=== PATIENT | female | born 1980 | race Caucasian/White ===

== ENCOUNTER 2016-09-13 15:21 | Emergency (ER) | payer MEDICAID ==
[~2016-09-13] VITALS: Ht 165.1 cm; Wt 83.9 kg
[~2016-09-13 15:21] MED LIST: ALBU18; DEPAKOTE; ZOLOFT
[2016-09-13 15:33] VITALS: BP 115/72
== END 2016-09-13 17:25 | disposition home or self-care (01) ==
LOC: ER 15:29
DX: S93.401A Sprain of unspecified ligament of right ankle, initial encounter (principal); W10.9XXA Fall (on) (from) unspecified stairs and steps, initial encounter; Y93.89 Activity, other specified; Y99.8 Other external cause status; Y92.89 Other specified places as the place of occurrence of the external cause
CPT/HCPCS: 73610

== ENCOUNTER 2016-09-16 15:53 | Emergency (ER) | payer MEDICAID ==
[~2016-09-16] VITALS: Ht 165.1 cm; Wt 83.0 kg
[2016-09-16 17:57] VITALS: BP 118/72
== END 2016-09-16 18:06 | disposition home or self-care (01) ==
LOC: ER 15:53
DX: S60.211A Contusion of right wrist, initial encounter (principal); J45.909 Unspecified asthma, uncomplicated; W01.0XXA Fall on same level from slipping, tripping and stumbling without subsequent striking against object, initial encounter; Y93.89 Activity, other specified; Y99.8 Other external cause status; Y92.89 Other specified places as the place of occurrence of the external cause
CPT/HCPCS: 73110; 73130; 81025

== ENCOUNTER 2017-01-24 17:12 | Emergency (ER) | payer MEDICAID ==
[~2017-01-24] VITALS: Ht 165.1 cm; Wt 87.5 kg
[2017-01-24 17:38] VITALS: BP 103/69
[2017-01-24 18:24] LABS: Basophils # (auto) 0.1 uL; Basophils % (auto) 0.7 % (0.0-2.0); CONDITION Y; Eosinophils # (auto) 0.3 uL; Eosinophils % (auto) 2.2 % (0.0-7.0); Hematocrit 41.6 % (36.0-46.0); Hemoglobin 14.2 g/dL (12.2-16.2); Lymphocytes # (auto) 3.4 uL; Lymphocytes % (auto) 28.1 % (10.0-50.0); Mean Corpuscular Hgb Conc. 34.1 g/dL (32.0-36.0); Mean Corpuscular Volume 90.9 fL (80.0-100.0); Mean Platelet Volume 8.4 fL (7.4-10.4); Monocytes # (auto) 0.8 uL; Neutrophils # (auto) 7.5 uL; Platelet Count (auto) 334 10^3/uL (140-450); Red Cell Distribution Width 13.5 % (11.6-16.0)
[2017-01-24 18:39] LABS: Albumin 3.7 g/dL (3.4-5.0); Bilirubin, Total 0.2 mg/dL (0.2-1.0); Calcium 8.8 mg/dL (8.5-10.1); Potassium 3.9 mmol/L (3.5-5.1); Total Protein 7.3 g/dL (6.4-8.2)
== END 2017-01-25 03:25 | disposition left against medical advice (07) ==
LOC: ER 17:18
DX: R56.9 Unspecified convulsions (principal); Z53.21 Procedure and treatment not carried out due to patient leaving prior to being seen by health care provider
CPT/HCPCS: 36415; 80053; 82542; 85025

== ENCOUNTER 2017-06-08 16:33 | Emergency (ER) | payer MEDICAID ==
[~2017-06-08] VITALS: Ht 165.1 cm; Wt 90.7 kg
[2017-06-08 17:26] LABS: Basophils # (auto) 0.1 uL; Basophils % (auto) 0.5 % (0.0-2.0); Eosinophils # (auto) 0.3 uL; Eosinophils % (auto) 2.3 % (0.0-7.0); Hematocrit 41.4 % (36.0-46.0); Hemoglobin 13.4 g/dL (12.2-16.2); Lymphocytes # (auto) 3.7 uL; Lymphocytes % (auto) 30.1 % (10.0-50.0); Mean Corpuscular Hemoglobin 29.7 pg (28.0-32.0); Mean Corpuscular Hgb Conc. 32.3 g/dL (32.0-36.0); Mean Corpuscular Volume 91.7 fL (80.0-100.0); Mean Platelet Volume 6.7 fL (6.9-10.8); Monocytes % (auto) 8.4 % (0.0-12.0); Neutrophils # (auto) 7.2 uL; Neutrophils % (auto) 58.7 % (37.0-80.0); Nucleated Red Blood Cells % 0.1 %; Platelet Count (auto) 331 10^3/uL (140-450); Red Cell Distribution Width 13.2 % (11.8-14.3); White Blood Cell 12.2 10^3/uL (4.4-10.8)
[2017-06-08 17:45] LABS: Albumin 3.4 g/dL (3.4-5.0); BUN/Creatinine Ratio 19.2; Bilirubin, Total 0.3 mg/dL (0.2-1.0); Calcium 8.5 mg/dL (8.5-10.1); Potassium 3.8 mmol/L (3.5-5.1); Total Protein 6.5 g/dL (6.4-8.2)
[2017-06-08] MEDS ORDERED: IOHEXOL 350 MG/ML 100ML IJ ONE (17:46)
[2017-06-08 17:53] VITALS: BP 106/66
[2017-06-08] MEDS ORDERED: HYDROcodone-ACET 5/325MG TAB PO ONE (19:30)
[2017-06-08 20:20] LABS: Urine Bilirubin Negative (Negative); Urine Blood Negative /uL (Negative); Urine Color Yellow (Yellow); Urine Glucose Normal (Normal); Urine Ketone Negative (Negative); Urine Mucus FEW (None Seen); Urine Nitrite Negative (Negative); Urine RBC 9 /hpf (0 - 4); Urine Squamous Epithelial Cell FEW /hpf (<5); Urine Urobilinogen Normal (Negative); Urine pH 7.5 (5.0-8.0)
== END 2017-06-08 20:26 | disposition home or self-care (01) ==
LOC: EDBD → ER 16:42
DX: G40.909 Epilepsy, unspecified, not intractable, without status epilepticus (principal); R53.1 Weakness; R42 Dizziness and giddiness
CPT/HCPCS: 36415; 70470; 80053; 81001; 85025; 99285; Q9967

== ENCOUNTER 2017-06-12 17:18 | Emergency (ER) | payer MEDICAID ==
[~2017-06-12] VITALS: Ht 167.6 cm; Wt 90.7 kg
[2017-06-12 17:44] VITALS: BP 124/90
[2017-06-13] MEDS ORDERED: BACLOFEN 10 MG TAB PO ONE (02:00)
[2017-06-13] MEDS ORDERED: IBUPROFEN 600 MG TAB PO ONE (02:00)
== END 2017-06-13 02:32 | disposition home or self-care (01) ==
LOC: EDBD 17:18 → ER 17:18 → EDUNIT# 17:18 → ER 06-13 02:32
DX: S16.1XXA Strain of muscle, fascia and tendon at neck level, initial encounter (principal); S39.012A Strain of muscle, fascia and tendon of lower back, initial encounter; V49.59XA Passenger injured in collision with other motor vehicles in traffic accident, initial encounter; Y93.89 Activity, other specified; Y92.410 Unspecified street and highway as the place of occurrence of the external cause; Y99.8 Other external cause status
CPT/HCPCS: 70450; 72040; 72100

== ENCOUNTER 2024-03-12 16:54 | Inpatient (IN) | payer MEDICAID ==
[~2024-03-12] VITALS: Ht 162.6 cm; Wt 120.2 kg
[2024-03-12 17:38] VITALS: PULSE 99; RESP 12; O2SAT 95
[2024-03-12] MEDS: TENECTEPLASE 50mg/10ml KIT IV ONE (18:20)
[2024-03-12 18:36] LABS: Basophils # (auto) 0.1 10 ^3/uL (0-0.2); Basophils % (auto) 0.7 % (0.0-2.0); Eosinophils # (auto) 0.4 10 ^3/uL (0-0.8); Eosinophils % (auto) 3.2 % (0.0-7.0); Hematocrit 43.6 % (36.0-46.0); Hemoglobin 14.5 g/dL (12.2-16.2); Lymphocytes # (auto) 3.4 10 ^3/uL (0.4-5.4); Mean Corpuscular Hemoglobin 30.7 pg (28.0-32.0); Mean Corpuscular Hgb Conc. 33.2 g/dL (32.0-36.0); Mean Corpuscular Volume 92.3 fL (80.0-100.0); Monocytes % (auto) 7.4 % (0.0-12.0); Neutrophils # (auto) 8.3 10 ^3/uL (1.6-8.6); Neutrophils % (auto) 62.7 % (37.0-80.0); Nucleated Red Blood Cells % 0.1 %; Platelet Count (auto) 317 10^3/uL (140-450); Red Blood Cells 4.73 10^6/uL (4.0-5.20); Red Cell Distribution Width 13.9 % (11.8-14.3); White Blood Cell 13.3 10^3/uL (4.4-10.8)
[2024-03-12 18:54] LABS: Alanine Aminotransferase 35 U/L (7-40); Albumin 3.7 g/dL (3.2-4.8); Alkaline Phosphatase 57 U/L (46-116); Anion Gap 8 (5-15); Aspartate Aminotransferase 26 U/L (13-40); BUN/Creatinine Ratio 14.6 (10.0-20.0); Blood Urea Nitrogen 12 mg/dL (9-23); Calcium 9.3 mg/dL (8.7-10.4); Carbon Dioxide 24 mmol/L (20-30); Chloride 110 mmol/L (98-107); Glucose 113 mg/dL (74-106); INR 0.92 (0.9-1.15); Magnesium 1.8 mg/dL (1.6-2.6); Partial Thromboplastin Time 21.4 SEC (24.5-34.5); Prothrombin Time 9.8 sec (9.3-11.8); Sodium 142 mmol/L (136-145)
[2024-03-12 18:55] LABS: Bilirubin, Total 0.2 mg/dL (0.2-1.0); Total Protein 5.5 g/dL (5.7-8.2)
[2024-03-12 19:30] VITALS: PULSE 79; RESP 13; O2SAT 94
[2024-03-12] MEDS ORDERED: LABETALOL HCL 20 MG/4 ML VL IV PRN (20:00)
[2024-03-12] MEDS ORDERED: ONDANSETRON HCL 4 MG/2 ML VIAL IV PRN (20:15)
[2024-03-12] MEDS ORDERED: HYDROmorphone HCL 2 MG/ML VL/or syr IV PRN (20:15)
[2024-03-12] MEDS ORDERED: ACETAMINOPHEN 325 MG TAB PO PRN (20:15)
[2024-03-12] MEDS ORDERED: DOCUSATE SOD 100 MG CAP PO PRN (20:15)
[2024-03-12] MEDS ORDERED: HYDROcodone-ACET 5/325MG TAB PO PRN (20:15)
[2024-03-12] MEDS: ATORVASTATIN 20 MG TAB PO SCH (20:20)
[2024-03-12 20:22] LABS: Triglycerides 219 mg/dL (< 150)
[2024-03-12 20:23] LABS: LDL Cholesterol 86 mg/dL (< 100)
[2024-03-12 20:24] LABS: Cholesterol 147 mg/dL (< 200); HDL Cholesterol 35 mg/dL (40-59)
[2024-03-12] MEDS: SODIUM CHLOR 0.9% PF (SALINE LOCK) 10ML VIAL/SYR IV SCH (22:06)
[2024-03-13] VITALS (9 sets, daily range): BP systolic 108–143; BP diastolic 60–93; PULSE 73–95; RESP 15–17; TEMP 98–98.1; O2SAT 95–98
[2024-03-13] MEDS: TOPIRAMATE 100 MG TAB PO SCH (08:38)
[2024-03-13] MEDS: lamoTRIgine 100 MG TAB PO SCH (08:38)
[2024-03-13] MEDS: IOHEXOL 350 MG/ML 100ML IJ ONE (15:11)
== END 2024-03-13 19:51 | disposition left against medical advice (07) | DRG 45 ==
LOC: ER 16:54 → OVERFLOW 20:04
PROVIDERS: ADMIT Internal Medicine; ATTEND Family Medicine
PROC: 3E03317 Introduction of Other Thrombolytic into Peripheral Vein, Percutaneous Approach (ICD-10-PCS; principal; 2024-03-12)
PROC: 5A09357 Assistance with Respiratory Ventilation, Less than 24 Consecutive Hours, Continuous Positive Airway Pressure (ICD-10-PCS; 2024-03-12)
PROC: 5A09357 Assistance with Respiratory Ventilation, Less than 24 Consecutive Hours, Continuous Positive Airway Pressure (ICD-10-PCS; 2024-03-13)
DX: I63.9 Cerebral infarction, unspecified (principal); I95.9 Hypotension, unspecified; R56.9 Unspecified convulsions; I69.354 Hemiplegia and hemiparesis following cerebral infarction affecting left non-dominant side; F32.A Depression, unspecified; E11.9 Type 2 diabetes mellitus without complications; E78.00 Pure hypercholesterolemia, unspecified; Z53.29 Procedure and treatment not carried out because of patient's decision for other reasons; Z90.710 Acquired absence of both cervix and uterus
CPT/HCPCS: 36415; 70450; 70496; 70551; 71045; 80053; 80061; 82962; 83036; 83735; 83880; 84484; 85025; 85610; 85730; 93005; 93306; 94660; 99291; G0378; J3101

== ENCOUNTER 2024-10-04 10:27 | Inpatient (IN) | payer MEDICAID ==
[~2024-10-04] VITALS: Ht 165.1 cm; Wt 130.0 kg
--- NOTE | 2024-10-04 10:48 | ED.PDOC ---
History of Present Illness HPI Comments 44-year-old female with PMHx Seizures, Depression, DM, HTN, HLD, TIAs presents with a chief complaint of seizure activity x 5 days. Patient states that within the last 5 days she has had 10 seizures, tonic-clonic in nature, and denies any falls or trauma from any of them. Patient mentions that she is currently on Keppra for her seizures. Patient mentions that she has been seen at both [facility] and [facility] for her seizures in the last 10 days and they did not increase her medication or start her on anything new. Patient is on oxygen via [place] due to "I had RSV in June". Time Seen by MD: 10:41 Primary Care Provider: DR HUERTA Reviewed Notes: Nurses Notes, Medications, Allergies Allergies: Coded Allergies: NO KNOWN ALLERGIES (Unverified , 04/30/10) Home Meds Reported Medications Albuterol Sulfate (Ventolin Hfa) Aer 02/24/10 [Zoloft] No Conflict Check 02/24/10 [Depakote] No Conflict Check 02/24/10 Information Source: Patient Mode of Arrival: Wheelchair Severity: Moderate Timing: Days Duration: Intermittent Prehospital treatment: None Past Medical History PAST MEDICAL HISTORY: Depression, DM, High Lipids, HTN, Seizures, TIA Surgical History: Hysterectomy Family History Family History: No family hx of HTN Social History Smoker: Non-Smoker Alcohol: Denies ETOH Use Drugs: Denies Drug Use Lives In: Home Constitutional: denies: chills, diaphoresis, fatigue, fever, malaise, sweats, weakness, others EENTM: denies: blurred vision, double vision, ear bleeding, ear discharge, ear drainage, ear pain, ear ringing, eye pain, eye redness, hearing loss, mouth pain, mouth swelling, nasal discharge, nose bleeding, nose congestion, nose pain, photophobia, tearing, throat pain, throat swelling, voice changes, others Respiratory: denies: cough, hemoptysis, orthopnea, SOB at rest, shortness of breath, SOB with excertion, stridor, wheezing, others Cardiovascular: denies: chest pain, dizzy spells, diaphoresis, Dyspnea on exertion, edema, irregular heart beat, left arm pain, lightheadedness, palpitations, PND, syncope, others Gastrointestinal: denies: abdomen distended, abdominal pain, blood streaked bowels, constipated, diarrhea, dysphagia, difficulty swallowing, hematemesis, melena, nausea, poor appetite, poor fluid intake, rectal bleeding, rectal pain, vomiting, others Genitourinary: denies: abnormal vagina bleeding, burning, dyspareunia, dysuria, flank pain, frequency, hematuria, incontinence, pain, , vagina discharge, urgency, others Neurological: reports: seizure; denies: dizziness, fainting, headache, left sided numbness, left sided weakness, numbness, paresthesia, pre-existing deficit, right sided numbness, right sided weakness, speech problems, tingling, tremors, weakness, others Musculoskeletal: denies: back pain, gout, joint pain, joint swelling, muscle pain, muscle stiffness, neck pain, others Integumetry: denies: bruises, change in color, change in hair/nails, dryness, laceration, lesions, lumps, rash, wounds, others Allergic/Immunocompromised: denies: Difficulty Healing, Frequent Infections, Hives, Itching, others Hematologic/Lymphatic: denies: anemia, blood clots, easy bleeding, easy bruising, swollen glands, others Endocrine: denies: excessive hunger, excessive sweating, excessive thirst, excessive urination, flushing, intolerance to cold, intolerance to heat, unexplained weight gain, unexplained weight loss, others Psychiatric: denies: anxiety, bipolar disorder, depression, hopeless, panic disorder, schizophrenia, sleepless, suicidal, others All Other Systems: Reviewed and Negative Physical Exam General Appearance: Obese HEENT: Normal ENT Inspection, Pharynx Normal, TMs Normal Neck: Full Range of Motion, Non-Tender, Normal, Normal Inspection Respiratory: Chest Non-Tender, Lungs Clear, No Accessory Muscle Use, No Respiratory Distress, Normal Breath Sounds Cardiovascular: No Edema, No JVD, No Murmur, No Gallop, Normal Peripheral Pulses, Regular Rate/Rhythm Breast Exam: Deferred Gastrointestinal: No Organomegaly, Non Tender, No Pulsatile Mass, Normal Bowel Sounds, Soft Genitalia: Deferred Pelvic: Deferred Rectal: Deferred Extremities: No calf tenderness, Normal capillary refill, Normal inspection, Normal range of motion, Non-tender, No pedal edema Musculoskeletal : Apperance: Normal Neurologic: Alert, cash person II-XII nml as Tested, No Motor Deficits, Normal Affect, Normal Mood, No Sensory Deficits Cerebellar Function: Normal Reflexes: Normal Skin: Dry, Normal Color, Warm Lymphatic: No Adenopathy Was a procedure done? Was a procedure done?: No EKG EKG : Pulse Rate (adult): 94 [place]: RAD Cardiac Rhythm: NSR Block: None Hypertrophy: None ST: Normal Differential Dx Considerations may include: Seizure, generalized weakness, infection, sepsis X-Ray, Labs, Meds, VS Vital Signs Date Time Temp Pulse Resp B/P (MAP) Pulse Ox O2 Delivery O2 Flow Rate FiO2 10/04/24 11:41 89 16 97 Nasal Cannula* 2 28 10/04/24 11:41 98.3 88 15 117/72 (87) 98 98.3 10/04/24 10:58 94 10/04/24 10:55 94 10/04/24 10:44 97.7 90 16 113/78 (90) 98 97.7 Lab Test 10/04/24 10:58 Range/Units White Blood Count 10.8 4.4-10.8 10^3/uL Red Blood Count 4.59 4.0-5.20 10^6/uL Hemoglobin 14.0 12.2-16.2 g/dL Hematocrit 42.2 36.0-46.0 % Mean Corpuscular Volume 92.0 80.0-100.0 fL Mean Corpuscular Hemoglobin 30.4 28.0-32.0 pg Mean Corpuscular Hemoglobin Concent 33.1 32.0-36.0 g/dL Red Cell Distribution Width 13.6 11.8-14.3 % Platelet Count 337 140-450 10^3/uL Mean Platelet Volume 7.7 6.9-10.8 fL Neutrophils (%) (Auto) 67.5 37.0-80.0 % Lymphocytes (%) (Auto) 22.8 10.0-50.0 % Monocytes (%) (Auto) 6.2 0.0-12.0 % Eosinophils (%) (Auto) 3.0 0.0-7.0 % Basophils (%) (Auto) 0.5 0.0-2.0 % Neutrophils # (Auto) 7.3 1.6-8.6 10 ^3/uL Lymphocytes # (Auto) 2.5 0.4-5.4 10 ^3/uL Monocytes # (Auto) 0.7 0-1.3 10 ^3/uL Eosinophils # (Auto) 0.3 0-0.8 10 ^3/uL Basophils # (Auto) 0.1 0-0.2 10 ^3/uL Nucleated Red Blood Cells 0.0 % Sodium Level Pending Potassium Level Pending Chloride Level Pending Carbon Dioxide Level Pending Anion Gap Pending Blood Urea Nitrogen Pending Creatinine Pending Glomerular Filtration Rate Calc Pending BUN/Creatinine Ratio Pending Serum Glucose Pending Calcium Level Pending IV Hep-Lock was established Seizure precautions were placed on the patient The CBC is within normal limits Because of the increasing frequency of seizures, the patient was being admitted at this time A neurology consult will also be obtained. The patient understands and agrees with the management. The patient was admitted at this time A CT scan of the head as well as possible electrolytes will be done to further assess the patient The patient was admitted. Time of 1ST Reevaluation: 11:11 Reevaluation 1ST: Unchanged Patient Education/Counseling: Diagnosis, Treatment, Prognosis Family Education/Counseling: No Family Present Departure 1 Departure Time of Disposition: 11:48 Impression: Primary Impression: Breakthrough seizure Disposition: ADMITTED INPATIENT Admit to: Tele Condition: Fair Critical Care Note Critical Care Time?: Yes (45 min-critical care time only) Stability Stability form required: Yes Unstable for transfer: Telemetry monitoring (Telemetry monitoring required), ED Physician Assesment (Clinical assesment) Heart Score Heart Score: Heart Score Response (Comments) Value History N/A 0 EKG N/A 0 Age N/A 0 Risk Factors N/A 0 Troponin N/A 0 Total 0 I personally scribed for HORTENCIA SHELDON MD ([email or web address]) on 10/04/24 at 10:48. Electronically submitted by Brayan Crabtree ([email or web address]). I personally scribed for HORTENCIA SHELDON MD ([email or web address]) on 10/04/24 at 10:49. Electronically submitted by Brayan Crabtree ([email or web address]). I personally scribed for HORTENCIA SHELDON MD ([email or web address]) on 10/04/24 at 10:50. Electronically submitted by Brayan Crabtree ([email or web address]). I personally scribed for HORTENCIA SHELDON MD (DVPASLE) on 10/04/24 at 10:58. Electronically submitted by Brayan Crabtree ([email or web address]). HORTENCIA SHELDON MD Oct 04, 2024 10:48
[2024-10-04 11:28] LABS: Basophils # (auto) 0.1 10 ^3/uL (0-0.2); Basophils % (auto) 0.5 % (0.0-2.0); Eosinophils # (auto) 0.3 10 ^3/uL (0-0.8); Hematocrit 42.2 % (36.0-46.0); Lymphocytes # (auto) 2.5 10 ^3/uL (0.4-5.4); Lymphocytes % (auto) 22.8 % (10.0-50.0); Mean Corpuscular Hemoglobin 30.4 pg (28.0-32.0); Mean Corpuscular Hgb Conc. 33.1 g/dL (32.0-36.0); Monocytes # (auto) 0.7 10 ^3/uL (0-1.3); Monocytes % (auto) 6.2 % (0.0-12.0); Neutrophils # (auto) 7.3 10 ^3/uL (1.6-8.6); Neutrophils % (auto) 67.5 % (37.0-80.0); Platelet Count (auto) 337 10^3/uL (140-450); Red Blood Cells 4.59 10^6/uL (4.0-5.20); Red Cell Distribution Width 13.6 % (11.8-14.3); White Blood Cell 10.8 10^3/uL (4.4-10.8)
[2024-10-04 11:41] VITALS: PULSE 89; RESP 16; O2SAT 97
[2024-10-04 11:46] LABS: Potassium 3.7 mmol/L (3.5-5.1); Sodium 143 mmol/L (136-145)
[2024-10-04 11:47] LABS: Anion Gap 8 (5-15); Carbon Dioxide 26 mmol/L (20-31)
[2024-10-04 11:48] LABS: Chloride 109 mmol/L (98-107)
[2024-10-04 11:52] LABS: BUN/Creatinine Ratio 8.9 (10.0-20.0)
[2024-10-04 11:55] LABS: Blood Urea Nitrogen 7 mg/dL (9-23); Glucose 119 mg/dL (74-106)
[2024-10-04 14:28] LABS: Amphetamine Screen, Urine Neg (NEGATIVE); Barbiturate Scree,Urine Neg (NEGATIVE); Benzodiazephine Screen, Urine Neg (NEGATIVE); Cannabinoid Screen, Urine Neg (NEGATIVE); Cocaine Screen, Urine Neg (NEGATIVE); Opiate Scree,Urine Neg (NEGATIVE); Phencyclidine Screen, Urine Neg (NEGATIVE)
[2024-10-04] MEDS ORDERED: TOPI100T68 PO (14:28)
[2024-10-04] MEDS ORDERED: LAMO150T26 PO (14:28)
[2024-10-04] MEDS ORDERED: FURO20TA4 PO (14:28)
[2024-10-04] MEDS ORDERED: ATOR-47 PO (14:28)
[2024-10-04 14:30] LABS: Urine Bacteria None Seen /hpf (None Seen)
[2024-10-04] MEDS ORDERED: ONDANSETRON HCL 4 MG/2 ML VIAL IV PRN (14:30)
[2024-10-04] MEDS ORDERED: RISP1TAB63 PO (14:43)
[2024-10-04] MEDS ORDERED: ESCI1TAB37 PO (14:43)
[2024-10-04 14:44] LABS: Urine Blood Negative /uL (Negative); Urine Clarity Clear (Clear); Urine Hyaline Cast FEW /lpf (0 - 2); Urine Protein, UAD Negative (Negative); Urine Specific Gravity 1.009 (1.001-1.035); Urine Squamous Epithelial Cell FEW /hpf (<5); Urine Urobilinogen Normal (Negative); Urine WBC 2 /HPF (0-5); Urine pH 6.5 (5.0-9.0)
[2024-10-04 14:48] LABS: Urine Color Straw (Yellow)
[2024-10-04 14:56] LABS: LDL Cholesterol 69 mg/dL (< 100)
[2024-10-04 14:57] LABS: Cholesterol 124 mg/dL (< 200)
[2024-10-04 15:04] LABS: HDL Cholesterol 30 mg/dL (40-59); Triglycerides 188 mg/dL (< 150)
--- NOTE | 2024-10-04 15:09 | DVHHP2 ---
History of Present Illness Reason for Visit: Seizures History of Present Illness This 44-year-old female presents in the ED with a chief complaint of seizures. The patient reports within the last 5 days had a total of 10 seizure episodes. The patient states that she went to [place] a week ago and was advised to follow-up with her neurologist. Subsequently, the patient had additional seizures for which prompted her to go to [facility] two days ago and again was advised to follow-up with her neurologist. The patient states that she is under neurologist Dr. Diaz which she last seen last year. She currently takes Keppra 500 daily, Lamictal 200 mg and Topamax 150mg. She denies headaches, dizziness, chest pain, shortness of breath, or other acute symptoms. Past medical history of seizures, hypertension, bipolar schizophrenia, obesity, and hyperlipidemia. Past Medical History As stated in HPI Past Surgical History Denies Family History Reviewed, non-contributory to the management of this case. Past Social History The patient lives at home, denies smoking, alcohol or illicit drugs abuse. Review of Systems Constitutional: No: Fever, Chills, Sweats, Weakness, Malaise, Other Eyes: No: Pain, Vision change, Conjunctivae inflammation, Eyelid inflammation, Other, Redness ENT: No: Ear pain, Ear discharge, Nose pain, Nose discharge, Nose congestion, Mouth pain, Mouth swelling, Throat pain, Throat swelling, Other Respiratory: No: Cough, Dry, Shortness of breath, SOB with excertion, Wheezing, Hemoptysis, Pleuritic Pain, Sputum, Wheezing, Other Cardiovascular: No: Chest Pain, Palpitations, Orthopnea, Paroxysmal Noc. Dyspnea, Edema, Lt Headedness, Other Gastrointestinal: No: Nausea, Vomiting, Abdominal Pain, Diarrhea, Constipation, Melena, Hematochezia, Other Musculoskeletal: No: other, neck pain, shoulder pain, arm pain, back pain, hand pain, leg pain, foot pain Skin: No: Rash, Lesions, Jaundice, Bruising, Other Neurological: Seizures; No: Weakness, Numbness, Incoordination, Change in speech, Confusion, Other Allergies: Coded Allergies: NO KNOWN ALLERGIES (Unverified , 04/30/10) Exam Vital Signs Vital Signs Date Time Temp Pulse Resp B/P (MAP) Pulse Ox O2 Delivery O2 Flow Rate FiO2 10/04/24 13:38 90 10/04/24 12:01 118/58 (78) 98 10/04/24 11:41 Nasal Cannula* 2 28 10/04/24 11:41 98.3 98.3 General Appearance: Alert, Oriented X3, Cooperative, Other (Obese) HEENT: Atraumatic, PERRLA, EOMI, Mucous membr. moist/pink Respiratory: Clear to auscultation, Normal air movement Cardiovascular: Regular rate, Normal S1, Normal S2 Abdominal: Normal bowel sounds, Soft, No tenderness, No hepatospenomegaly Extremities: No clubbing, No cyanosis, No edema, Normal pulses Skin: No rashes, No breakdown, No significant lesion Neuro: Normal gait, Normal speech, Strength at 5/5 X4 ext, Normal tone Psych/Mental Status: Mental status NL Labs/Xrays Labs Test 10/04/24 13:43 10/04/24 10:58 Range/Units White Blood Count 10.8 4.4-10.8 10^3/uL Red Blood Count 4.59 4.0-5.20 10^6/uL Hemoglobin 14.0 12.2-16.2 g/dL Hematocrit 42.2 36.0-46.0 % Mean Corpuscular Volume 92.0 80.0-100.0 fL Mean Corpuscular Hemoglobin 30.4 28.0-32.0 pg Mean Corpuscular Hemoglobin Concent 33.1 32.0-36.0 g/dL Red Cell Distribution Width 13.6 11.8-14.3 % Platelet Count 337 140-450 10^3/uL Mean Platelet Volume 7.7 6.9-10.8 fL Neutrophils (%) (Auto) 67.5 37.0-80.0 % Lymphocytes (%) (Auto) 22.8 10.0-50.0 % Monocytes (%) (Auto) 6.2 0.0-12.0 % Eosinophils (%) (Auto) 3.0 0.0-7.0 % Basophils (%) (Auto) 0.5 0.0-2.0 % Neutrophils # (Auto) 7.3 1.6-8.6 10 ^3/uL Lymphocytes # (Auto) 2.5 0.4-5.4 10 ^3/uL Monocytes # (Auto) 0.7 0-1.3 10 ^3/uL Eosinophils # (Auto) 0.3 0-0.8 10 ^3/uL Basophils # (Auto) 0.1 0-0.2 10 ^3/uL Nucleated Red Blood Cells 0.0 % Sodium Level 143 136-145 mmol/L Potassium Level 3.7 3.5-5.1 mmol/L Chloride Level 109 H 98-107 mmol/L Carbon Dioxide Level 26 20-31 mmol/L Anion Gap 8 5-15 Blood Urea Nitrogen 7 L 9-23 mg/dL Creatinine 0.79 0.550-1.02 mg/dL Glomerular Filtration Rate Calc 95 >90 mL/min BUN/Creatinine Ratio 8.9 L 10.0-20.0 Serum Glucose 119 H 74-106 mg/dL Calcium Level 9.0 8.7-10.4 mg/dL Assessment/Plan Assessment/Plan # breakthrough seizures Recent multiple images/CT head -requested from [facility] Neurology consult keppra bid Continue topiramate, Lamictal Seizure precautions UDS pending # Htn lasix Monitor # bipolar, schizophrenia Continue with home meds # hyperlipidemia Continue with statin Lipid panel # morbid obesity Lifestyle modification counseled with diet, regular exercise, weight loss Check A1c, TSH DVT prophylaxis Medical plan discussed with patient and RN Plan discussed with: Patient Date of Service: Oct 04, 2024 Billing Provider: TRACEY THOMAS Common Visit Codes: [id number] INP/OBS CARE (HIGH) TRACEY THOMAS Oct 04, 2024 15:09
[2024-10-04 16:10] VITALS: BP 111/74; PULSE 91; RESP 16; TEMP 97.8; O2SAT 98
[2024-10-04 17:23] VITALS: BP 111/74; PULSE 91; RESP 16; TEMP 97.8; O2SAT 98
[2024-10-04 20:00] VITALS: PULSE 88; PULSE 89; PULSE 90; RESP 90; O2SAT 94
[2024-10-04 21:00] VITALS: BP 105/64; PULSE 90; RESP 19; TEMP 97.8; O2SAT 94
[2024-10-04] MEDS: lamoTRIgine 100 MG TAB PO SCH (21:55)
[2024-10-04] MEDS: ATORVASTATIN 20 MG TAB PO SCH (21:55)
[2024-10-04] MEDS: TOPIRAMATE 100 MG TAB PO SCH (22:26)
[2024-10-04] MEDS: levETIRAcetam 500 mg/100ml 100 ML IV SCH (22:47)
[2024-10-05 05:00] VITALS: BP 126/77; PULSE 102; RESP 18; TEMP 97.3; O2SAT 94
[2024-10-05 06:43] LABS: Basophils # (auto) 0.1 10 ^3/uL (0-0.2); Basophils % (auto) 0.7 % (0.0-2.0); Eosinophils # (auto) 0.4 10 ^3/uL (0-0.8); Eosinophils % (auto) 3.4 % (0.0-7.0); Hematocrit 39.6 % (36.0-46.0); Hemoglobin 13.5 g/dL (12.2-16.2); Lymphocytes # (auto) 2.7 10 ^3/uL (0.4-5.4); Lymphocytes % (auto) 23.3 % (10.0-50.0); Mean Corpuscular Hemoglobin 31.5 pg (28.0-32.0); Mean Corpuscular Hgb Conc. 34.1 g/dL (32.0-36.0); Mean Corpuscular Volume 92.5 fL (80.0-100.0); Monocytes # (auto) 0.9 10 ^3/uL (0-1.3); Monocytes % (auto) 7.5 % (0.0-12.0); Neutrophils # (auto) 7.7 10 ^3/uL (1.6-8.6); Neutrophils % (auto) 65.1 % (37.0-80.0); Nucleated Red Blood Cells % 0.1 %; Platelet Count (auto) 321 10^3/uL (140-450); Red Blood Cells 4.28 10^6/uL (4.0-5.20); Red Cell Distribution Width 13.3 % (11.8-14.3); White Blood Cell 11.8 10^3/uL (4.4-10.8)
[2024-10-05 06:53] LABS: Alanine Aminotransferase 30 U/L (7-40); Albumin 3.9 g/dL (3.2-4.8); Alkaline Phosphatase 50 U/L (46-116); Anion Gap 9 (5-15); Aspartate Aminotransferase 14 U/L (13-40); BUN/Creatinine Ratio 13.3 (10.0-20.0); Bilirubin, Total 0.5 mg/dL (0.2-1.0); Blood Urea Nitrogen 12 mg/dL (9-23); Calcium 9.4 mg/dL (8.7-10.4); Carbon Dioxide 27 mmol/L (20-31); Glucose 94 mg/dL (74-106); Potassium 3.9 mmol/L (3.5-5.1); Sodium 143 mmol/L (136-145)
[2024-10-05 06:56] LABS: Chloride 107 mmol/L (98-107); Total Protein 5.6 g/dL (5.7-8.2)
[2024-10-05 08:00] VITALS: PULSE 84
[2024-10-05 08:15] VITALS: PULSE 82; RESP 16; O2SAT 97
[2024-10-05 08:30] VITALS: BP 114/79; PULSE 82; RESP 16; TEMP 98.1; O2SAT 97
[2024-10-05] MEDS: ENOXAPARIN SOD 40 MG/0.4 ML SYRINGE SC SCH (10:15)
[2024-10-05] MEDS: FUROSEMIDE 20 MG TAB PO SCH (10:54)
[2024-10-05 12:30] VITALS: BP 122/71; PULSE 90; RESP 16; TEMP 98.5; O2SAT 97
--- NOTE | 2024-10-05 13:16 | ECG ---
[facility] Test Date: 2024-10-04 Test Time: 10:55:16 Pat Name: BRANDON STERLING Department: ER Room: [address] [place] [address] 6 Gender: F [employer] Person: DR FLORES: 1980 Requested By: HORTENCIA SHELDON Order Number: [id number] Reading MD: Osvaldo Clark Measurements Intervals [place] Rate: 94 P: 42 VA: 159 QRS: 127 QRSD: 51 T: 55 QT: 396 QTc: 496 Interpretive Statements Sinus rhythm Right axis deviation Low voltage, extremity and precordial leads Borderline prolonged QT interval Electronically Signed On 10-08-2024 13:19:49 PDT by Osvaldo Clark Please click the below link to view image of tracing.
[2024-10-05] MEDS ORDERED: CLOP75TA70 PO (14:41)
[2024-10-05] MEDS ORDERED: ASPI-325 PO (14:41)
[2024-10-05 15:33] VITALS: BP 122/71; PULSE 90; RESP 16; TEMP 98.5; O2SAT 94
--- NOTE | 2024-10-05 19:00 | DVHDSRES ---
Discharge Summary Date of Admission Resident Creating Document: JENNY GAMBOA RESIDENT Oct 04, 2024 at 14:22 Date of Discharge: Oct 05, 2024 Admitting Diagnosis # breakthrough seizures # Htn # bipolar, schizophrenia # hyperlipidemia # morbid obesity Wounds: none Labs/Diagnostic Data: Laboratory Results Test 10/05/24 05:56 10/04/24 13:43 10/04/24 13:42 10/04/24 10:58 White Blood Count 11.8 10^3/uL (4.4-10.8) Red Blood Count 4.28 10^6/uL (4.0-5.20) Hemoglobin 13.5 g/dL (12.2-16.2) Hematocrit 39.6 % (36.0-46.0) Mean Corpuscular Volume 92.5 fL (80.0-100.0) Mean Corpuscular Hemoglobin 31.5 pg (28.0-32.0) Mean Corpuscular Hemoglobin Concent 34.1 g/dL (32.0-36.0) Red Cell Distribution Width 13.3 % (11.8-14.3) Platelet Count 321 10^3/uL (140-450) Mean Platelet Volume 7.5 fL (6.9-10.8) Neutrophils (%) (Auto) 65.1 % (37.0-80.0) Lymphocytes (%) (Auto) 23.3 % (10.0-50.0) Monocytes (%) (Auto) 7.5 % (0.0-12.0) Eosinophils (%) (Auto) 3.4 % (0.0-7.0) Basophils (%) (Auto) 0.7 % (0.0-2.0) Neutrophils # (Auto) 7.7 10 ^3/uL (1.6-8.6) Lymphocytes # (Auto) 2.7 10 ^3/uL (0.4-5.4) Monocytes # (Auto) 0.9 10 ^3/uL (0-1.3) Eosinophils # (Auto) 0.4 10 ^3/uL (0-0.8) Basophils # (Auto) 0.1 10 ^3/uL (0-0.2) Nucleated Red Blood Cells 0.1 % Sodium Level 143 mmol/L (136-145) Potassium Level 3.9 mmol/L (3.5-5.1) Chloride Level 107 mmol/L (98-107) Carbon Dioxide Level 27 mmol/L (20-31) Anion Gap 9 (5-15) Blood Urea Nitrogen 12 mg/dL (9-23) Creatinine 0.90 mg/dL (0.550-1.02) Glomerular Filtration Rate Calc 81 mL/min (>90) BUN/Creatinine Ratio 13.3 (10.0-20.0) Serum Glucose 94 mg/dL (74-106) Calcium Level 9.4 mg/dL (8.7-10.4) Total Bilirubin 0.5 mg/dL (0.2-1.0) Aspartate Amino Transferase (AST) 14 U/L (13-40) Alanine Aminotransferase (ALT) 30 U/L (7-40) Alkaline Phosphatase 50 U/L (46-116) Total Protein 5.6 g/dL (5.7-8.2) Albumin 3.9 g/dL (3.2-4.8) Urine Opiates Screen Neg (NEGATIVE) Urine Fentanyl Screen Neg (NEGATIVE) Urine Barbiturates Screen Neg (NEGATIVE) Urine Phencyclidine Screen Neg (NEGATIVE) Urine Amphetamines Screen Neg (NEGATIVE) Urine Benzodiazepines Screen Neg (NEGATIVE) Urine Cocaine Screen Neg (NEGATIVE) Urine Cannabinoids Screen Neg (NEGATIVE) Urine Color Straw (Yellow) Urine Clarity Clear (Clear) Urine pH 6.5 (5.0-9.0) Urine Specific [place] 1.009 (1.001-1.035) Urine Protein Negative (Negative) Urine Ketones Negative (Negative) Urine Blood Negative /uL (Negative) Urine Nitrite Negative (Negative) Urine Bilirubin Negative (Negative) Urine Urobilinogen Normal mg/dL (Negative) Urine Leukocyte Esterase Negative /uL (Negative) Urine RBC <1 /hpf (0 - 4) Urine Microscopic WBC 2 /HPF (0-5) Urine Squamous Epithelial Cells Few /hpf (<5) Urine Bacteria None seen /hpf (None Seen) Urine Hyaline Casts Few /lpf (0 - 2) Urine Glucose Normal mg/dL (Normal) Hemoglobin A1c 5.3 % A1C (<5.7) Triglycerides Level 188 mg/dL (< 150) Cholesterol Level 124 mg/dL (< 200) LDL Cholesterol 69 mg/dL (< 100) HDL Cholesterol 30 mg/dL (40-59) Thyroid Stimulating Hormone (TSH) 1.71 uIU/mL (0.55-4.78) Other Laboratory Tests 10/05/24 05:56 Brief Hx & Hospital Course: HPI This 44-year-old female presents in the ED with a chief complaint of seizures. The patient reports within the last 5 days had a total of 10 seizure episodes. The patient states that she went to [place] a week ago and was advised to follow-up with her neurologist. Subsequently, the patient had additional seizures for which prompted her to go to [facility] two days ago and again was advised to follow-up with her neurologist. The patient states that she is under neurologist Dr. Diaz which she last seen last year. She denies headaches, dizziness, chest pain, shortness of breath, or other acute symptoms. Past medical history: Seizure disorder, depression, hypertension, hyperlipidemia, stroke in February 2024 Past surgical history: Hysterectomy Social history: Patient lives with the family and denies smoking, alcohol, other illicit drug use Home medications: Keppra 500 mg b.i.d., topiramate 100 mg b.i.d., risperidone 1 mg b.i.d., lamotrigine 150 mg, aspirin, Plavix, atorvastatin, escitalopram 20 mg Brief hospital course and discharge plan Patient was admitted to the hospital after having an episode of seizure which was explained with the has a focal seizure. Patient was brought to the hospital following the seizure. While examination in the morning today patient did not have any postictal confusion, no focal neurological deficits. Patient was able to eat and ambulate without any difficulty. Patient was advised to follow up with the primary neurologist for further management has no inpatient workup was required. Patient was advised to continue on her home medications for seizure disorder. Consults/Reason for consult none Operations or Procedures none Condition at Discharge: Good Final Diagnosis/Problems List H/O SEIZURE DISORDER. BREAKTHROUGH SEIZURES. HTN. BIPOLAR, SCHIZOPHRENIA. HYPERLIPIDEMIA. MORBID OBESITY. Discharge Disposition: Home Discharge Instruct/Medications Diet: Regular Activity: No Restrictions, As Tolerated Follow Up/Referral: Follow up with the primary neurologist in the outpatient clinic Medications: continue home meds Discharge Statement: "Patient was advised to return to the ER or call 911 if any headaches, dizziness, shortness of breath, chest pain, abdominal pain, bleeding, fevers, or worsening of medical condition. Patient was counseled about treatment plan, medications, possible side effects, patientverbalized understanding. All questions were answered to the best of my ability. This discharge took greater then 30 minutes in planning, reviewing documentation, counseling the patient, and discussing with other team members." ASSESSMENT ASSESSMENT Assessment H/O SEIZURE DISORDER. BREAKTHROUGH SEIZURES. HTN. BIPOLAR, SCHIZOPHRENIA. HYPERLIPIDEMIA. MORBID OBESITY. Date of Service: Oct 05, 2024 Billing Provider: LEENA SANDOVAL MD Common Visit Codes: [id number]/[id number] DISCH DAY >30min JENNY GAMBOA RESIDENT Oct 05, 2024 19:00 LEENA SANDOVAL MD Oct 06, 2024 14:45
== END 2024-10-05 16:32 | disposition home or self-care (01) | DRG 53 ==
LOC: ER 10:27 → OVERFLOW 14:22 → EAST 16:14 → TELE-EAST 16:41
PROVIDERS: ADMIT Student in an Organized Health Care Education/Training Program; ATTEND Student in an Organized Health Care Education/Training Program
DX: G40.909 Epilepsy, unspecified, not intractable, without status epilepticus (principal); J96.21 Acute and chronic respiratory failure with hypoxia; E11.9 Type 2 diabetes mellitus without complications; E66.01 Morbid (severe) obesity due to excess calories; E78.5 Hyperlipidemia, unspecified; F31.9 Bipolar disorder, unspecified; F20.9 Schizophrenia, unspecified; I10 Essential (primary) hypertension; Z86.73 Personal history of transient ischemic attack (TIA), and cerebral infarction without residual deficits; Z90.710 Acquired absence of both cervix and uterus; Z79.899 Other long term (current) drug therapy; Z68.42 Body mass index [BMI] 45.0-49.9, adult
CPT/HCPCS: 36415; 80048; 80053; 80061; 80307; 81001; 83036; 84443; 85025; 93005; 96365; 99291; G0378

== ENCOUNTER 2024-12-23 10:50 | Emergency (ER) | payer MEDICAID ==
[~2024-12-23] VITALS: Ht 165.1 cm; Wt 131.0 kg
[~2024-12-23 10:50] MED LIST changes: +ASPI-325 PO; +ATOR-47 PO; +CLOP75TA70 PO; +ESCI1TAB37 PO; +FURO20TA4 PO; +LAMO150T26 PO; +RISP1TAB63 PO; +TOPI100T68 PO
[2024-12-23 11:10] VITALS: BP 125/73; PULSE 88; RESP 18; TEMP 98.5; O2SAT 95
== END 2024-12-23 13:03 | disposition left against medical advice (07) ==
LOC: ER 10:50
DX: S09.90XA Unspecified injury of head, initial encounter (principal); Z53.21 Procedure and treatment not carried out due to patient leaving prior to being seen by health care provider; X58.XXXA Exposure to other specified factors, initial encounter; Y93.89 Activity, other specified; Y92.89 Other specified places as the place of occurrence of the external cause; Y99.8 Other external cause status

== ENCOUNTER 2024-12-31 11:49 | Emergency (ER) | payer MEDICAID ==
[~2024-12-31] VITALS: Ht 165.1 cm; Wt 130.9 kg
[2024-12-31 11:53] VITALS: BP 126/77; RESP 18; TEMP 97.6; O2SAT 96
[2024-12-31 11:55] VITALS: PULSE 91
--- NOTE | 2024-12-31 12:16 | ED.PDOC ---
HPI Comments HPI: This is a 44 year old female presenting to the ED with chief complaint of chest pain. Patient reports that she had been sitting down watching TV at 11am this morning when she experience sudden, 4/10 mid-sternal chest pain that has been constant since then. Patient relays that her pain has increased to 5/10 since then. Patient states that she took 81mg of ASA prior to coming into the ED. Patient denies any family history of cardiac disease. Patient denies any SOB, N/V, headache, dizziness, fever, or chills. Initial Vitals BP: 126/77 HR: 90 RR: 18 O2 Sat: 96% Temp: 97.6F Past Medical history: COPD, Seizures, HTN, Pre-Diabetes, Arthritis, Depression, TIA, Hearing impaired Past Surgical history: Vaginal reconstruction, Hysterectomy Medications: Lamictal Social History: Vapes, denies ETOH and drug use. Allergies: NKDA HPI: Poor Historian. REVIEW OF SYSTEMS: CONSTITUTIONAL: Denies acute: fever, diaphoresis, chills, generalized weakness. HEAD: Denies acute: headache, photophobia Eyes: Denies acute: Double vision, vision loss, eye pain, eye discharge. EARS: Denies acute: tinnitus, hearing loss, ear discharge, ear pain, THROAT: Denies acute: sore throat, swelling, difficulty swallowing , pain with swallow ing, change in voice. NECK: Denies acute: neck pain, neck swelling, stiff neck. HEART: Denies acute : palpitations, LUNGS: Denies acute: SOB, wheezing, cough, hemoptysis ABDOMEN: Denies acute: abdominal pain, Nausea, Vomiting, diarrhea, melena , hematemesis, hematochezia SKIN: Denies acute: rash, redness, lesions, itchiness. EXTREMITIES: Denies acute: calf pain, numbness, tingling, weakness, denies pain in extremity. Denies acute: Low back pain. Neuro: Denies acute: focal neurological deficit, motor or sensory focal neurological deficit, tremors, seizure like activity, confusion, dizziness, change in mental status, loss of bowel or bladder function, cauda equina like symptoms. : Denies acute: dysuria, hematuria, flank pain, increase in urinary frequency. PSYCH: Denies acute: hallucination, suicidal ideation, homicidal ideation. FEMALE: Denies acute: abnormal vaginal bleeding, foul odor, unusual discharge. PHYSICAL EXAM: General: ----no----acute distress, awake and alert. Head: normocephalic, atraumatic. Neck: supple, trachea is midline, no swelling. Throat: Normal phonation. Eyes:, no erythema, no purulent discharge, no proptosis, no icterus. Heart: regular rate, regular rhythm, no significant murmur appreciated. Lungs: no apparent respiratory distress, Able to speak in full sentences. No wheezing, no rhonchi, no crackles. No stridors Clear to auscultation bilaterally. Abdomen: non tender to palpation, non distended, soft, no guarding, no rebound, + bowel sounds. Morbidly obese Neuro: Awake, Alert, oriented to name, self, situation, follows commands GCS=15. Speech is normal. Skin: no petechia, no purpura, no cyanosis, non-pale, not jaundice. Lower extremities: --no - Pitting edema no deformity, no focal swelling, no calf TTP. Makes eye contact. moves all four extremities. Face: no apparent facial droop. Ambulating in the ED independently. ED COURSE: DISCLAIMER: This medical document was created using an electronic medical record system with voice recognition software and computerized dictation system. Although this document has been carefully reviewed, there might still be some phonetic and typographical errors. Occasional wrong-word or "sound-alike" substitutions may have occurred due to the inherent limitations of voice recognition software. These areas are purely typographical due to imperfections of the software programs and do not reflect any compromise in the patient's medical care. Please read the chart carefully and recognize, using context, where these substitutions have occurred. Chief Complaint: Chest Pain Time Seen by MD: 12:13 Primary Care Provider: DR HUERTA Reviewed Notes: Medications, Allergies Allergies: Coded Allergies: NO KNOWN ALLERGIES (Unverified , 04/30/10) Home Meds Active Scripts Nitrofurantoin Monohydrate Mac (Macrobid) 100 Mg Cap, 100 MG PO BID for 7 Days, #14 CAP Prov:TOMAS FAJARDO DO 12/31/24 Clopidogrel Bisulfate (CLOPIDOGREL) 75 Mg Tab, 75 MG PO DAILY for 30 Days, #30 TAB 0 Refills Prov:JENNY GAMBOA RESIDENT 10/05/24 Aspirin (Aspirin Low Dose) 81 Mg Tab, 81 MG PO DAILY for 30 Days, #30 TAB 0 Refills Prov:JENNY GAMBOA RESIDENT 10/05/24 Reported Medications Escitalopram Oxalate (ESCITALOPRAM OXALATE) 20 Mg Tab, 1 TAB PO DAILY 10/04/24 Risperidone (Risperidone) 1 Mg Tab, 1 TAB PO BID 10/04/24 Furosemide (Furosemide) 20 Mg Tab, 1 TAB PO DAILY 10/04/24 Topiramate (Topiramate) 100 Mg Tab, 1 TAB PO BID 10/04/24 Atorvastatin Calcium (ATORVASTATIN CALCIUM) 80 Mg Tab, 1 TAB PO DAILY 10/04/24 Lamotrigine (Lamotrigine) 150 Mg Tab, 2 PO BID 10/04/24 Albuterol Sulfate (Ventolin Hfa) Aer 02/24/10 [Zoloft] No Conflict Check 02/24/10 [Depakote] No Conflict Check 02/24/10 Information Source: Patient Mode of Arrival: Ambulatory Was a procedure done? Was a procedure done?: No CP Differential Dx Differential Diagnosis: N/A Differential Diagnosis: Other (Ddx include but not limitied to gastritis, musculoskeletal pain, radiculopathy, atypical chest pain, dissection, aneurysm, ACS, unstable angina, hiatal hernia, GERD, anxiety, costochondritis, PE, pneumothroax, neoplasm, cardiac ischemia, drug abuse, anemia.) X-Ray, Labs, Meds, VS Vital Signs Date Time Temp Pulse Resp B/P (MAP) Pulse Ox O2 Delivery O2 Flow Rate FiO2 12/31/24 11:55 91 12/31/24 11:53 97.6 90 18 126/77 (93) 96 97.6 Lab Test 12/31/24 12:04 12/31/24 12:01 Range/Units White Blood Count 11.6 H 4.4-10.8 10^3/uL Red Blood Count 4.44 4.0-5.20 10^6/uL Hemoglobin 13.3 12.2-16.2 g/dL Hematocrit 39.6 36.0-46.0 % Mean Corpuscular Volume 89.3 80.0-100.0 fL Mean Corpuscular Hemoglobin 30.0 28.0-32.0 pg Mean Corpuscular Hemoglobin Concent 33.6 32.0-36.0 g/dL Red Cell Distribution Width 13.6 11.8-14.3 % Platelet Count 342 140-450 10^3/uL Mean Platelet Volume 7.4 6.9-10.8 fL Neutrophils (%) (Auto) 63.4 37.0-80.0 % Lymphocytes (%) (Auto) 24.3 10.0-50.0 % Monocytes (%) (Auto) 6.0 0.0-12.0 % Eosinophils (%) (Auto) 5.6 0.0-7.0 % Basophils (%) (Auto) 0.7 0.0-2.0 % Neutrophils # (Auto) 7.4 1.6-8.6 10 ^3/uL Lymphocytes # (Auto) 2.8 0.4-5.4 10 ^3/uL Monocytes # (Auto) 0.7 0-1.3 10 ^3/uL Eosinophils # (Auto) 0.6 0-0.8 10 ^3/uL Basophils # (Auto) 0.1 0-0.2 10 ^3/uL Nucleated Red Blood Cells 0.1 % Sodium Level 142 136-145 mmol/L Potassium Level 3.7 3.5-5.1 mmol/L Chloride Level 106 98-107 mmol/L Carbon Dioxide Level 28 20-31 mmol/L Anion Gap 8 5-15 Blood Urea Nitrogen 16 9-23 mg/dL Creatinine 0.97 0.550-1.02 mg/dL Glomerular Filtration Rate Calc 74 >90 mL/min BUN/Creatinine Ratio 16.5 10.0-20.0 Serum Glucose 90 74-106 mg/dL Calcium Level 9.3 8.7-10.4 mg/dL Total Bilirubin 0.2 0.2-1.0 mg/dL Aspartate Amino Transferase (AST) 21 <34 U/L Alanine Aminotransferase (ALT) 28 7-40 U/L Alkaline Phosphatase 69 46-116 U/L B-Type Natriuretic Peptide 15.15 0-100 pg/mL Total Protein 6.7 5.7-8.2 g/dL Albumin 4.4 3.2-4.8 g/dL Urine Color Yellow Yellow Urine Clarity Turbid H Clear Urine pH 7.0 5.0-9.0 Urine Specific [place] 1.018 1.001-1.035 Urine Protein Negative Negative Urine Ketones Negative Negative Urine Blood Negative Negative /uL Urine Nitrite Negative Negative Urine Bilirubin Negative Negative Urine Urobilinogen Normal Negative mg/dL Urine Leukocyte Esterase Negative Negative /uL Urine RBC 2 0 - 4 /hpf Urine Microscopic WBC 6 H 0-5 /HPF Urine Squamous Epithelial Cells Few <5 /hpf Urine Bacteria Few H None Seen /hpf Urine Glucose Normal Normal mg/dL Time of 1ST Reevaluation: 13:13 Reevaluation 1ST: Unchanged Patient Education/Counseling: Diagnosis, Treatment Family Education/Counseling: No Family Present Comments Patient presented with the above HPI.--cardiac----workup was initiated. patient was found with the above mentioned diagnosis. the following medications were ordered: please refer to order lists of meds and tests obtained by myself Dr. Fajardo. Patient ED course and VS have been stabilized. Patient has been reassessed in the ED and remained in a stable condition. Patient has been observed in the ED adequate length of time to insure improvement/stability. Escalation of care considered: Consideration of escalation to observation or admission Patient eloped All the reports of any imaging studies that were ordered by myself were reviewed by myself. Departure 1 Departure Time of Disposition: 14:50 Impression: Primary Impression: Chest pain Additional Impressions: Eloped from emergency department UTI (urinary tract infection) Disposition: 07 LEFT AWOL/ELOPED Condition: Other Additional Instructions: Patient eloped e-Prescriptions Nitrofurantoin Monohydrate Mac (Macrobid) 100 Mg Cap 100 MG PO BID for 7 Days, #14 CAP Prov: TOMAS FAJARDO DO 12/31/24 Discharged With: Other Critical Care Note Critical Care Time?: No Heart Score Heart Score: Heart Score Response (Comments) Value History Moderate Suspicious 1 EKG Normal 0 Age <45 0 Risk Factors >3 or Hx ASHD 2 Troponin N/A 0 Total 3 I personally scribed for TOMAS FAJARDO DO ([email or web address]) on 12/31/24 at 12:16. Electronically submitted by Ab Becker ([email or web address]). I personally scribed for TOMAS AFJARDO DO ([email or web address]) on 12/31/24 at 14:13. Electronically submitted by Ab Becker ([email or web address]). TOMAS FAJARDO DO Dec 31, 2024 12:16
[2024-12-31] MEDS ORDERED: NITROGLYCERIN 0.4 MG SL TAB SL ONE (13:00)
[2024-12-31] MEDS ORDERED: ASPirin-EC 325mg tab PO ONE (13:00)
[2024-12-31 13:11] LABS: Basophils # (auto) 0.1 10 ^3/uL (0-0.2); Basophils % (auto) 0.7 % (0.0-2.0); Eosinophils # (auto) 0.6 10 ^3/uL (0-0.8); Eosinophils % (auto) 5.6 % (0.0-7.0); Hematocrit 39.6 % (36.0-46.0); Hemoglobin 13.3 g/dL (12.2-16.2); Lymphocytes # (auto) 2.8 10 ^3/uL (0.4-5.4); Lymphocytes % (auto) 24.3 % (10.0-50.0); Mean Corpuscular Hgb Conc. 33.6 g/dL (32.0-36.0); Mean Corpuscular Volume 89.3 fL (80.0-100.0); Monocytes # (auto) 0.7 10 ^3/uL (0-1.3); Neutrophils # (auto) 7.4 10 ^3/uL (1.6-8.6); Neutrophils % (auto) 63.4 % (37.0-80.0); Nucleated Red Blood Cells % 0.1 %; Platelet Count (auto) 342 10^3/uL (140-450); Red Blood Cells 4.44 10^6/uL (4.0-5.20); Red Cell Distribution Width 13.6 % (11.8-14.3); White Blood Cell 11.6 10^3/uL (4.4-10.8)
[2024-12-31 13:14] LABS: Urine Bacteria FEW /hpf (None Seen); Urine Blood Negative /uL (Negative); Urine Clarity Turbid (Clear); Urine Color Yellow (Yellow); Urine Protein, UAD Negative (Negative); Urine Specific Gravity 1.018 (1.001-1.035); Urine Squamous Epithelial Cell FEW /hpf (<5); Urine Urobilinogen Normal (Negative); Urine WBC 6 /HPF (0-5)
[2024-12-31 13:21] LABS: Alanine Aminotransferase 28 U/L (7-40); Albumin 4.4 g/dL (3.2-4.8); Alkaline Phosphatase 69 U/L (46-116); Anion Gap 8 (5-15); Aspartate Aminotransferase 21 U/L (<34); BUN/Creatinine Ratio 16.5 (10.0-20.0); Blood Urea Nitrogen 16 mg/dL (9-23); Calcium 9.3 mg/dL (8.7-10.4); Carbon Dioxide 28 mmol/L (20-31); Chloride 106 mmol/L (98-107); Glucose 90 mg/dL (74-106); Potassium 3.7 mmol/L (3.5-5.1); Sodium 142 mmol/L (136-145); Total Protein 6.7 g/dL (5.7-8.2)
[2024-12-31 13:22] LABS: Bilirubin, Total 0.2 mg/dL (0.2-1.0)
[2024-12-31] MEDS ORDERED: NITR-87 PO (14:51)
--- NOTE | 2025-01-04 10:22 | ECG ---
[facility] Test Date: 2024-12-31 Test Time: 11:55:38 Pat Name: BRANDON STERLING Department: ER Room: Gender: F Director Software: CHAIM : 1980 Requested By: TOMAS FAJARDO Order Number: [id number] Reading MD: Osvaldo Clark Measurements Intervals [place] Rate: 91 P: 33 [place]: 169 QRS: 201 QRSD: 57 T: 9 QT: 407 QTc: 501 Interpretive Statements Sinus rhythm Right axis deviation Low voltage, precordial leads Borderline prolonged QT interval Electronically Signed On 01-05-2025 22:29:54 PDT by Osvaldo Clark Please click the below link to view image of tracing.
== END 2024-12-31 14:12 | disposition left against medical advice (07) ==
LOC: ER 11:57
DX: R07.2 Precordial pain (principal); N39.0 Urinary tract infection, site not specified; F32.A Depression, unspecified; F17.290 Nicotine dependence, other tobacco product, uncomplicated; I10 Essential (primary) hypertension; J44.9 Chronic obstructive pulmonary disease, unspecified; M19.90 Unspecified osteoarthritis, unspecified site; Z86.73 Personal history of transient ischemic attack (TIA), and cerebral infarction without residual deficits; Z79.899 Other long term (current) drug therapy; Z79.02 Long term (current) use of antithrombotics/antiplatelets; Z79.82 Long term (current) use of aspirin; Z90.710 Acquired absence of both cervix and uterus
CPT/HCPCS: 36415; 80053; 81001; 83880; 85025; 93005

== ENCOUNTER 2025-01-19 14:23 | Inpatient (IN) | payer MEDICAID ==
[~2025-01-19] VITALS: Ht 172.7 cm; Wt 129.1 kg
[~2025-01-19 14:23] MED LIST changes: +NITR-87 PO
--- NOTE | 2025-01-19 15:14 | ED.PDOC ---
History of Present Illness HPI Comments Patient is a 44-year-old female with a past medical history of epilepsy, TIA, anxiety, depression was brought to the ED by her after she was witnessed to have 4 episode of seizures. Does not reported at the patient had total of 4 episodes each 30 minutes to 1 hour apart, the 1st 2-3 seizures lasted about 30 seconds and the last one lasted about a minute. Patient has complete amnesia about the event but she did not hit her head down. The reported that for about 2 months patient did not have any seizures but on a regular basis she has been having a seizure every 3-4 weeks. Patient was diagnosed with a epilepsy in 2017 and is following a neurologist in [place] and is currently on Keppra, Topamax, lamotrigine. Patient denied any fever, chills, dysuria, abdominal pain, nausea/vomiting/diarrhea in the last week. She does report of mild cough associated with whitish yellow sputum since yesterday. On arrival to the ED patient's blood sugar was noted to be 126 mg/dL. Chief Complaint: Seizure Time Seen by MD: 14:28 Primary Care Provider: JACE Allergies: Coded Allergies: NO KNOWN ALLERGIES (Unverified , 04/30/10) Home Meds Active Scripts Nitrofurantoin Monohydrate Mac (Macrobid) 100 Mg Cap, 100 MG PO BID for 7 Days, #14 CAP Prov:TOMAS FAJARDO DO 12/31/24 Clopidogrel Bisulfate (CLOPIDOGREL) 75 Mg Tab, 75 MG PO DAILY for 30 Days, #30 TAB 0 Refills Prov:JENNY GAMBOA RESIDENT 10/05/24 Aspirin (Aspirin Low Dose) 81 Mg Tab, 81 MG PO DAILY for 30 Days, #30 TAB 0 Refills Prov:JENNY GAMBOA RESIDENT 10/05/24 Reported Medications Escitalopram Oxalate (ESCITALOPRAM OXALATE) 20 Mg Tab, 1 TAB PO DAILY 10/04/24 Risperidone (Risperidone) 1 Mg Tab, 1 TAB PO BID 10/04/24 Furosemide (Furosemide) 20 Mg Tab, 1 TAB PO DAILY 10/04/24 Topiramate (Topiramate) 100 Mg Tab, 1 TAB PO BID 10/04/24 Atorvastatin Calcium (ATORVASTATIN CALCIUM) 80 Mg Tab, 1 TAB PO DAILY 10/04/24 Lamotrigine (Lamotrigine) 150 Mg Tab, 2 PO BID 10/04/24 Albuterol Sulfate (Ventolin Hfa) Aer 02/24/10 [Zoloft] No Conflict Check 02/24/10 [Depakote] No Conflict Check 02/24/10 Mode of Arrival: Ambulatory Past Medical History PAST MEDICAL HISTORY: Depression, DM, High Lipids, HTN, Seizures, TIA Surgical History: Hysterectomy Family History Family History: No family hx of HTN Social History Smoker: Non-Smoker Alcohol: Denies ETOH Use Drugs: Denies Drug Use Lives In: Home Constitutional: reports: fatigue, malaise EENTM: denies: blurred vision, double vision, ear bleeding, ear discharge, ear drainage, ear pain, ear ringing, eye pain, eye redness, hearing loss, mouth pain, mouth swelling, nasal discharge, nose bleeding, nose congestion, nose pain, photophobia, tearing, throat pain, throat swelling, voice changes, others Respiratory: reports: cough Cardiovascular: denies: chest pain, dizzy spells, diaphoresis, Dyspnea on exertion, edema, irregular heart beat, left arm pain, lightheadedness, palpitations, PND, syncope, others Gastrointestinal: denies: abdomen distended, abdominal pain, blood streaked bowels, constipated, diarrhea, dysphagia, difficulty swallowing, hematemesis, melena, nausea, poor appetite, poor fluid intake, rectal bleeding, rectal pain, vomiting, others Genitourinary: denies: abnormal vagina bleeding, burning, dyspareunia, dysuria, flank pain, frequency, hematuria, incontinence, pain, , vagina discharge, urgency, others Neurological: reports: dizziness, headache (Right parietal) Musculoskeletal: denies: back pain, gout, joint pain, joint swelling, muscle pain, muscle stiffness, neck pain, others Integumetry: denies: bruises, change in color, change in hair/nails, dryness, laceration, lesions, lumps, rash, wounds, others Allergic/Immunocompromised: denies: Difficulty Healing, Frequent Infections, Hives, Itching, others Hematologic/Lymphatic: denies: anemia, blood clots, easy bleeding, easy bruising, swollen glands, others Endocrine: denies: excessive hunger, excessive sweating, excessive thirst, excessive urination, flushing, intolerance to cold, intolerance to heat, une xplained weight gain, unexplained weight loss, others Psychiatric: denies: anxiety, bipolar disorder, depression, hopeless, panic disorder, schizophrenia, sleepless, suicidal, others Physical Exam General Appearance: No Apparent Distress, Normal, Obese HEENT: Normal ENT Inspection, Pharynx Normal, TMs Normal Neck: Full Range of Motion, Non-Tender, Normal, Normal Inspection Respiratory: Chest Non-Tender, Lungs Clear, No Accessory Muscle Use, No Respiratory Distress, Normal Breath Sounds Cardiovascular: No Edema, No JVD, No Murmur, No Gallop, Normal Peripheral Pulses, Regular Rate/Rhythm Breast Exam: Deferred Gastrointestinal: No Organomegaly, Non Tender, No Pulsatile Mass, Normal Bowel Sounds, Soft Genitalia: Deferred Pelvic: Deferred Rectal: Deferred Extremities: No calf tenderness, Normal capillary refill, Normal inspection, Normal range of motion, Non-tender, No pedal edema Neurologic: Alert, regulatory technician II-XII nml as Tested, No Motor Deficits, Normal Affect, Normal Mood, No Sensory Deficits Cerebellar Function: Unable to Test Reflexes: Normal Skin: Dry, Normal Color, Warm Peripheral Pulses: 2+ carotid (R), 2+ carotid (L), 2+ femoral (R), 2+ femoral (L), 2+ dorsalis pedis (R), 2+ dorsalis pedis (L), 2+ Radial (R), 2+ Radial (L) Lymphatic: No Adenopathy Was a procedure done? Was a procedure done?: No Differential Dx Considerations may include: Breakthrough seizure, epilepsy, intracranial mass X-Ray, Labs, Meds, VS Vital Signs Date Time Temp Pulse Resp B/P (MAP) Pulse Ox O2 Delivery O2 Flow Rate FiO2 01/19/25 14:40 98.7 87 16 117/73 (88) 95 98.7 Lab Test 01/19/25 14:55 01/19/25 14:50 01/19/25 14:37 Range/Units White Blood Count 10.8 4.4-10.8 10^3/uL Red Blood Count 4.60 4.0-5.20 10^6/uL Hemoglobin 13.7 12.2-16.2 g/dL Hematocrit 41.2 36.0-46.0 % Mean Corpuscular Volume 89.5 80.0-100.0 fL Mean Corpuscular Hemoglobin 29.7 28.0-32.0 pg Mean Corpuscular Hemoglobin Concent 33.2 32.0-36.0 g/dL Red Cell Distribution Width 14.2 11.8-14.3 % Platelet Count 308 140-450 10^3/uL Mean Platelet Volume 7.7 6.9-10.8 fL Neutrophils (%) (Auto) 63.8 37.0-80.0 % Lymphocytes (%) (Auto) 24.2 10.0-50.0 % Monocytes (%) (Auto) 6.3 0.0-12.0 % Eosinophils (%) (Auto) 5.1 0.0-7.0 % Basophils (%) (Auto) 0.6 0.0-2.0 % Neutrophils # (Auto) 6.9 1.6-8.6 10 ^3/uL Lymphocytes # (Auto) 2.6 0.4-5.4 10 ^3/uL Monocytes # (Auto) 0.7 0-1.3 10 ^3/uL Eosinophils # (Auto) 0.6 0-0.8 10 ^3/uL Basophils # (Auto) 0.1 0-0.2 10 ^3/uL Nucleated Red Blood Cells 0.0 % Sodium Level 142 136-145 mmol/L Potassium Level 3.5 3.5-5.1 mmol/L Chloride Level 109 H 98-107 mmol/L Carbon Dioxide Level 25 20-31 mmol/L Anion Gap 8 5-15 Blood Urea Nitrogen 15 9-23 mg/dL Creatinine 0.89 0.550-1.02 mg/dL Glomerular Filtration Rate Calc 82 >90 mL/min BUN/Creatinine Ratio 16.9 10.0-20.0 Serum Glucose 113 H 74-106 mg/dL Calcium Level 10.0 8.7-10.4 mg/dL Magnesium Level 1.9 1.6-2.6 mg/dL Levetiracetam Level Pending POC Glucose 126 H 70-106 mg/dl Patient is a 44-year-old female was brought in after she experienced for seizure activities since the morning, each episode 30 minutes to 1 hour apart, the 1st 3 episode lasting 30 minutes and the latest lasting about a minute. Patient did not report of any seizure in the last [address] head without contrast was ordered along with the initial labs including CBC, BMP, urinalysis, urine drug screen. 1 g of Keppra IV and 1 L of IV fluid was given. Head CT showed no acute intracranial abnormality, initial labs were within normal limits but has a patient has increased frequency of seizures with 4 seizures today, patient will need further inpatient management and possible neurological workup. Patient and the family agrees with the plan. Time of 1ST Reevaluation: 16:10 Reevaluation 1ST: Improved Patient Education/Counseling: Diagnosis, Treatment Family Education/Counseling: Diagnosis, Treatment SEPSIS Sepsis Screen Date sepsis recognized/suspect: Jan 19, 2025 Time Sepsis recognized/suspect: 144 Recent Procedure: No On Antibiotic Therapy: No Respiratory Rate >20: No Heart Rate >90: No Temp<36 C (96.8 F) or >38.3 C: No SBP <90 or MAP <65 mmHG: No New Acute Mental Status Change: No Is the patient on CPAP, BIPAP,: No Physician Orders Urinalysis (01/19/25 14:50) Drug Screen (01/19/25 14:50) Levetiracetam (Keppra) (01/19/25 14:50) Heplock Iv (01/19/25 ) Head Without Contrast (01/19/25 14:50) Vital Signs Date Time Temp Pulse Resp B/P (MAP) Pulse Ox O2 Delivery O2 Flow Rate FiO2 01/19/25 14:40 98.7 87 16 117/73 (88) 95 98.7 Laboratory Tests Test 01/19/25 14:55 White Blood Count 10.8 10^3/uL (4.4-10.8) Departure 1 Departure Time of Disposition: 17:10 Impression: Primary Impression: Breakthrough seizure Additional Impressions: Epilepsy Obesities, morbid Disposition: 09 ADMITTED INPATIENT Condition: Stable Critical Care Note Critical Care Time?: No Stability Stability form required: No Heart Score Heart Score: Heart Score Response (Comments) Value History N/A 0 EKG N/A 0 Age N/A 0 Risk Factors N/A 0 Troponin N/A 0 Total 0 JENNY GAMBOA RESIDENT Jan 19, 2025 15:14
[2025-01-19 15:27] LABS: Hematocrit 41.2 % (36.0-46.0); Hemoglobin 13.7 g/dL (12.2-16.2); Mean Corpuscular Hemoglobin 29.7 pg (28.0-32.0); Mean Corpuscular Volume 89.5 fL (80.0-100.0); Nucleated Red Blood Cells % 0.0 %
[2025-01-19 15:34] LABS: Potassium 3.5 mmol/L (3.5-5.1); Sodium 142 mmol/L (136-145)
[2025-01-19 15:35] LABS: Anion Gap 8 (5-15); Carbon Dioxide 25 mmol/L (20-31)
[2025-01-19 15:36] LABS: Calcium 10.0 mg/dL (8.7-10.4)
[2025-01-19 15:38] LABS: Chloride 109 mmol/L (98-107)
[2025-01-19 15:41] LABS: BUN/Creatinine Ratio 16.9 (10.0-20.0); Blood Urea Nitrogen 15 mg/dL (9-23); Magnesium 1.9 mg/dL (1.6-2.6)
[2025-01-19 15:42] LABS: Glucose 113 mg/dL (74-106)
--- NOTE | 2025-01-19 15:48 | DVH ---
CLINICAL INFORMATION: breakthrough seizure. TECHNIQUE: Axial imaging was obtained through the brain without contrast. Coronal and sagittal reform atted images were obtained, reviewed, and stored. Images were reviewed in brain and bone windows. Al l CT scans at this medical facility are performed using dose modulation techniques as appropriate to a performed exam including the following: Automated exposure control was utilized; adjustment of the MA and/or KV according to patient size; and use of iterative reconstruction technique. CTDIvol = 63.6 6 mGy DLP = 1380.04 mGy-cm COMPARISON: CT HEAD WITHOUT CONTRAST on DOS: 03/13/24, CT STROKE CTH on DOS: 03/12/24 FINDINGS: There is no acute intracranial hemorrhage. No mass effect or midline shift. Partially empty sella. The ventricles and sulci are within normal limits in size for age. Basal cisterns are patent. The calvarium is unremarkable. Paranasal sinuses and mastoid air cells are clear. IMPRESSION: 1. No CT evidence of acute intracranial abnormality. 2. Nonacute findings as described above.
--- NOTE | 2025-01-19 17:41 | DVH ---
CHEST RADIOGRAPH Indication: Cough, phlegm Technique: Single frontal view of the chest was obtained Comparison: XY CHEST XRAY 1 VIEW on DOS: 03/12/24 FINDINGS: Lines and Tubes: None Lungs: No focal consolidation. Pleura: No effusion. No pneumothorax. Cardiomediastinal contours: Unremarkable Bones: No acute osseous abnormality. IMPRESSION: 1. No acute cardiopulmonary disease.
[2025-01-19] MEDS ORDERED: LORazepam 2MG/ML-1ML VIAL IV PRN (19:15)
[2025-01-19] MEDS ORDERED: ONDANSETRON HCL 4 MG/2 ML VIAL IV PRN (19:15)
[2025-01-19] MEDS ORDERED: DEXTROSE (50%) 50ML SYRG IV PRN (19:15)
[2025-01-19] MEDS ORDERED: ACETAMINOPHEN 325 MG TAB PO PRN (19:15)
[2025-01-19] MEDS: SODIUM CHLORIDE 0.9% 1,000 ML IV ONE (19:31)
[2025-01-19] MEDS: levETIRAcetam 1000 mg/100ml 100 ML IV ONE (19:31)
[2025-01-19 19:43] VITALS: BP 126/56; PULSE 77; RESP 16; TEMP 98.1; O2SAT 96
[2025-01-19] MEDS ORDERED: InsuLIN REG 1unit/0.01ml Soln (100units/ml) SC SCH (22:00)
[2025-01-19] MEDS ORDERED: lamoTRIgine 100 MG TAB PO SCH (22:00)
[2025-01-19] MEDS ORDERED: ACCU-CHEK COMFORT CURVE STRIP VI SCH (22:00)
[2025-01-19] MEDS ORDERED: ATORVASTATIN 20 MG TAB PO SCH (22:00)
[2025-01-19] MEDS ORDERED: TOPIRAMATE 100 MG TAB PO SCH (22:00)
[2025-01-20] MEDS ORDERED: CLOPIDOGREL BISULFATE 75 MG TAB PO SCH (10:00)
[2025-01-20] MEDS ORDERED: FUROSEMIDE 20 MG TAB PO SCH (10:00)
== END 2025-01-19 20:57 | disposition left against medical advice (07) | DRG 53 ==
LOC: ER 14:23 → OVERFLOW 19:07
PROVIDERS: ADMIT Nurse Practitioner; ATTEND Nurse Practitioner
DX: G40.909 Epilepsy, unspecified, not intractable, without status epilepticus (principal); E11.9 Type 2 diabetes mellitus without complications; I10 Essential (primary) hypertension; Z68.41 Body mass index [BMI] 40.0-44.9, adult; E66.01 Morbid (severe) obesity due to excess calories; F41.9 Anxiety disorder, unspecified; Z53.29 Procedure and treatment not carried out because of patient's decision for other reasons; Z90.710 Acquired absence of both cervix and uterus; Z86.73 Personal history of transient ischemic attack (TIA), and cerebral infarction without residual deficits
CPT/HCPCS: 36415; 70450; 71045; 80048; 82542; 82962; 83735; 85025; 96365; G0378

== ENCOUNTER 2025-01-23 18:42 | Inpatient (IN) | payer MEDICAID ==
[~2025-01-23] VITALS: Ht 165.1 cm; Wt 129.0 kg
--- NOTE | 2025-01-23 19:43 | ED.PDOC ---
HPI (NEURO) HPI Comments 44 year old female came to ER due to seizures. Patient has history of seizures, takes Keppra, Lamictal and Topamax as prescribed. States last seizure episode was 3 days ago. Per patient's At about 1.5 hours prior to arrival, she had 3 witnessed seizures, tonic clonic, about a minute in duration and 15- 30 minutes apart. States headaches preceded the seizure event. Chief Complaint: Seizure Time Seen by MD: 19:42 Primary Care Provider: JACE Jarvis Notes: Nurses Notes Information Source: Patient Mode of Arrival: Wheelchair Severity: Moderate Dizziness/Weakness Severity: Unable to do activities Headache Severity: Moderate Timing: Hours Duration: Intermittent Seizure Quality: Tonic-clonic Headache Quality: Throbbing, Aching Headache Location: Generalized Weakness Location: Generalized Numbness Location: Generalized Seizure Location: Generalized Onset: With light exertion Circumstances: Spontaneous Symptoms: Weakness Before: Aura During: LOC After: Confusion, Headache History of: Seizure Disorder Associated Signs and Symptoms: Headache, Weakness Review of Systems REVIEW OF SYSTEMS: General: No fever, no chills, or fatigue HEENT: No sore throat, no earache, no congestion, no neck pain. Cardiac: No chest pain. No palpitations. Lungs: No shortness of breath, no cough. GI: No nausea, no vomiting, no diarrhea, no constipation, no abdominal pain : No dysuria, frequency, or urgency. No hematuria. Musculoskeletal: No joint pain , no joint swelling, no extremity edema. Skin: No rash, no itching. Neuro: No headache, no dizziness, no weakness (+) seizure Vital Signs Vital Signs Date Time Temp Pulse Resp B/P (MAP) Pulse Ox O2 Delivery O2 Flow Rate FiO2 01/23/25 22:00 87 26 119/66 (83) 97 01/23/25 20:20 Room Air* 0 21 01/23/25 20:20 98.6 98.6 Physical Exam PHYSICAL EXAM: General: Awake, alert and oriented. No acute distress. Skin: Skin in warm, dry and intact. Appropriate color for ethnicity. HEENT: The head is normocephalic and atraumatic. Conjunctivae are clear without exudates or hemorrhage. Sclera is non-icteric. EOM are intact. No signs of nystagmus. Eyelids are normal in appearance without swelling or lesions. Oral mucosa is pink and moist Neck: The neck is supple with normal range of motion. No JVD. Cardiac: Heart rate and rhythm are normal. No murmurs, gallops, or rubs are auscultated. Respiratory: No signs of respiratory distress. Lung sounds are clear in all lobes bilaterally without rales, rhonchi, or wheezes. Abdominal: Abdomen is soft, non-tender without distention, guarding or rigidity. Bowel sounds are present and normoactive in all four quadrants. Extremities: Upper and lower extremities are atraumatic in appearance without deformity or edema. Neurological: The patient is awake, alert and oriented to person, place, and time with normal speech. Speech is clear. There is no facial asymmetry. Psychiatric: Appropriate mood and affect. Good judgement and insight. Past Medical History PAST MEDICAL HISTORY: Depression, DM, High Lipids, HTN, Schizophrenia, Seizures, TIA, UTI'S Past Medical History (Other): Bipolar disorder Surgical History: Hysterectomy Family History Family History: No family hx of HTN Social History Smoker: Non-Smoker Alcohol: Denies ETOH Use Drugs: Denies Drug Use Lives In: Home Was a procedure done? Was a procedure done?: No Differential Diagnosis (SZ) Seizure: Other (Differential diagnoses considered include but are not limited to epilepsy/seizure disorder, MANAGER EDUCATIONAL infection, electrolyte disturbance, CVA, TBI, drug toxicity or overdose, hypoxia, hypertensive emergency, brain tumor/mass, syncope, movement disorder, other) X-Ray, Labs, Meds, VS Vital Signs Date Time Temp Pulse Resp B/P (MAP) Pulse Ox O2 Delivery O2 Flow Rate FiO2 01/23/25 22:00 87 26 119/66 (83) 97 01/23/25 20:20 88 13 98 Room Air* 0 21 01/23/25 20:20 98.6 88 13 127/76 (93) 98 98.6 01/23/25 19:03 93 01/23/25 19:00 98.9 96 20 112/68 (83) 96 98.9 Lab Test 01/23/25 19:48 01/23/25 19:05 Range/Units White Blood Count 11.1 H 4.4-10.8 10^3/uL Red Blood Count 4.60 4.0-5.20 10^6/uL Hemoglobin 13.6 12.2-16.2 g/dL Hematocrit 41.1 36.0-46.0 % Mean Corpuscular Volume 89.4 80.0-100.0 fL Mean Corpuscular Hemoglobin 29.5 28.0-32.0 pg Mean Corpuscular Hemoglobin Concent 33.0 32.0-36.0 g/dL Red Cell Distribution Width 14.1 11.8-14.3 % Platelet Count 316 140-450 10^3/uL Mean Platelet Volume 7.8 6.9-10.8 fL Neutrophils (%) (Auto) 52.4 37.0-80.0 % Lymphocytes (%) (Auto) 30.0 10.0-50.0 % Monocytes (%) (Auto) 10.2 0.0-12.0 % Eosinophils (%) (Auto) 6.5 0.0-7.0 % Basophils (%) (Auto) 0.9 0.0-2.0 % Neutrophils # (Auto) 5.8 1.6-8.6 10 ^3/uL Lymphocytes # (Auto) 3.3 0.4-5.4 10 ^3/uL Monocytes # (Auto) 1.1 0-1.3 10 ^3/uL Eosinophils # (Auto) 0.7 0-0.8 10 ^3/uL Basophils # (Auto) 0.1 0-0.2 10 ^3/uL Nucleated Red Blood Cells 0.1 % Sodium Level 141 136-145 mmol/L Potassium Level 3.8 3.5-5.1 mmol/L Chloride Level 107 98-107 mmol/L Carbon Dioxide Level 24 20-31 mmol/L Anion Gap 10 5-15 Blood Urea Nitrogen 15 9-23 mg/dL Creatinine 0.95 0.550-1.02 mg/dL Glomerular Filtration Rate Calc 76 >90 mL/min BUN/Creatinine Ratio 15.8 10.0-20.0 Serum Glucose 96 74-106 mg/dL Calcium Level 10.0 8.7-10.4 mg/dL B-Type Natriuretic Peptide 13.47 0-100 pg/mL Thyroid Stimulating Hormone (TSH) 4.48 0.55-4.78 uIU/mL POC Glucose 108 H 70-106 mg/dl Current Medications Medications (Trade) Dose Ordered Sig/Ponce Route Start Time Stop Time Status Last Admin Sodium Chloride 1,000 ml @ 1,000 mls/hr Q1H ONCE IV 01/23/25 19:30 01/23/25 20:29 DC 01/23/25 20:20 Levetiracetam 100 ml @ 400 mls/hr ONCE ONCE IV 01/23/25 19:30 01/23/25 19:44 DC 01/23/25 20:20 CT HEAD WITHOUT CONTRAST INDICATION: multiple breakthrough seizures, headache EXAM DATE: 01/23/2025 07:57 PM COMPARISON: CT HEAD WITHOUT CONTRAST on DOS: 01/19/25, CT HEAD WITHOUT CONTRAST on DOS: 03/13/24, CT STROKE CTH on DOS: 03/12/24 RADIATION DOSE: CTDIvol: 64.11 mGy, DLP: 1134.94 mGy*cm PROCEDURE: CT scans of the head were obtained from the vertex to the skull base. Sagittal and coronal reconstructions were provided. All CT scans at this medical facility are performed using dose modulation techniques as appropriate to a performed exam including the following: Automated exposure control was utilized; adjustment of the MA and/or KV according to patient size; and use of iterative reconstruction technique. FINDINGS: The cerebral parenchyma appears to be normal configuration and attenuation. The ventricles, cisterns, and sulci appear age-appropriate. There is no evidence for acute territorial infarct, hemorrhage, or mass effect. The orbits are normal. The visualized paranasal sinuses and mastoid air cells are clear. The soft tissues and osseous structures appear within normal limits. IMPRESSION: 1. No acute territorial infarct, intracranial hemorrhage, or mass effect. If clinical symptoms persist, MRI may be beneficial in further evaluation. Time of 1ST Reevaluation: 19:38 Reevaluation 1ST: Unchanged Patient Education/Counseling: Prognosis, Need For Follow Up Family Education/Counseling: No Family Present Departure 1 Departure Time of Disposition: 20:41 Impression: Primary Impression: Breakthrough seizure Disposition: 01 HOME / SELF CARE / HOMELESS Condition: Stable Comments [age] Year old female with history presents with multiple [id number] seizures today. Patient admitted to hospitalist service for further treatment, evaluation and monitoring. Patient eloped from the emergency department prior to discussing risks of discharge. Extensive evaluation was performed in attempt to identify or rule out: (See differential diagnosis section) The following tests were ordered, and results were reviewed by me and discussed with patient: (See diagnostic results section) The following test were independently interpreted by me: N/A I reviewed and agreed with the following test results read by other providers: CT head, chest x-ray I reviewed the following notes from the pt's past medical encounters: January 19, 2025 for breakthrough seizure Additional information was gathered from interviewing the following independent historians: Patient's Discussion of management or test interpretation with external physician/other qualified health transitions rn care coordinator: N/A Addressed [ ]one or more chronic illnesses with severe exacerbation, progression, or side effects of treatment: Seizure disorder Decision regarding hospitalization or escalation of hospital level of care: Risk and benefits of admission for further treatment of patient's condition was considered. Due to patient's current clinical condition, high risk of decline and poor outcome if discharged and need for further inpatient management and monitoring, patient will be admitted to the hospital. Discussed with patient. Drug therapy requiring intensive monitoring for toxicity: IV Keppra Parenteral controlled substances: N/A Decision regarding elective major surgery with identified patient or procedure risk factors: N/A Decision regarding emergency major surgery: N/A Decision not to resuscitate or to de-escalate care because of poor prognosis: N/A Diagnosis or treatment significantly limited by social determinants of health: N/A Critical Care Note Critical Care Time?: No Stability Stability form required: No Heart Score Heart Score: Heart Score Response (Comments) Value History N/A 0 EKG N/A 0 Age N/A 0 Risk Factors N/A 0 Troponin N/A 0 Total 0 I personally scribed for LAVERN HEWITT MD ([email or web address]) on 01/23/25 at 19:43. El ectronically submitted by Pedrito Chung ([email or web address]). I personally scribed for LAVERN HEWITT MD ([email or web address]) on 01/23/25 at 23:37. Electronically submitted by Pedrito Chung ([email or web address]). LAVERN HEWITT MD Jan 23, 2025 19:43
[2025-01-23 20:20] VITALS: PULSE 88; RESP 13; TEMP 98.6; O2SAT 98
[2025-01-23 20:20] LABS: Hematocrit 41.1 % (36.0-46.0); Hemoglobin 13.6 g/dL (12.2-16.2); Mean Corpuscular Hemoglobin 29.5 pg (28.0-32.0); Mean Corpuscular Volume 89.4 fL (80.0-100.0); Nucleated Red Blood Cells % 0.1 %
[2025-01-23] MEDS: levETIRAcetam 1000 mg/100ml 100 ML IV ONE (20:20)
[2025-01-23] MEDS: SODIUM CHLORIDE 0.9% 1,000 ML IV ONE (20:20)
[2025-01-23 20:29] LABS: Chloride 107 mmol/L (98-107); Potassium 3.8 mmol/L (3.5-5.1); Sodium 141 mmol/L (136-145)
[2025-01-23 20:30] LABS: Anion Gap 10 (5-15); Calcium 10.0 mg/dL (8.7-10.4); Carbon Dioxide 24 mmol/L (20-31)
[2025-01-23 20:35] LABS: BUN/Creatinine Ratio 15.8 (10.0-20.0); Blood Urea Nitrogen 15 mg/dL (9-23); Glucose 96 mg/dL (74-106)
--- NOTE | 2025-01-23 20:35 | DVH ---
CT HEAD WITHOUT CONTRAST INDICATION: multiple breakthrough seizures, headache EXAM DATE: 01/23/2025 07:57 PM COMPARISON: CT HEAD WITHOUT CONTRAST on DOS: 01/19/25, CT HEAD WITHOUT CONTRAST on DOS: 03/13/24, CT STR JOSE ARMANDO CTH on DOS: 03/12/24 RADIATION DOSE: CTDIvol: 64.11 mGy, DLP: 1134.94 mGy*cm PROCEDURE: CT scans of the head were obtained from the vertex to the skull base. Sagittal and coronal reconstructions were provided. All CT scans at this medical facility are performed using dose modulation techniques as appropriate t o a performed exam including the following: Automated exposure control was utilized; adjustment of th e MA and/or KV according to patient size; and use of iterative reconstruction technique. FINDINGS: The cerebral parenchyma appears to be normal configuration and attenuation. The ventricles, cisterns , and sulci appear age-appropriate. There is no evidence for acute territorial infarct, hemorrhage, or mass effect. The orbits are normal. The visualized paranasal sinuses and mastoid air cells are clear. The soft t issues and osseous structures appear within normal limits. IMPRESSION: 1. No acute territorial infarct, intracranial hemorrhage, or mass effect. If clinical symptoms persis t, MRI may be beneficial in further evaluation.
[2025-01-23 22:00] VITALS: BP 119/66; PULSE 87; RESP 26; O2SAT 97
[2025-01-23] MEDS ORDERED: DOCUSATE SOD 100 MG CAP PO PRN (23:00)
[2025-01-23] MEDS ORDERED: ONDANSETRON HCL 4 MG/2 ML VIAL IV PRN ×2 (23:00)
[2025-01-23] MEDS ORDERED: MORPHINE SULFATE INJ 2 MG/ml SYRG IV PRN (23:00)
[2025-01-23] MEDS ORDERED: NITROGLYCERIN 0.4 MG SL TAB SL PRN (23:00)
[2025-01-23] MEDS ORDERED: ACETAMINOPHEN 325 MG TAB PO PRN ×2 (23:00)
[2025-01-23] MEDS ORDERED: HYDROcodone-ACET 5/325MG TAB PO PRN (23:00)
--- NOTE | 2025-01-23 23:14 | DVHHPRES ---
History of Present Illness Resident Creating Document: JUAN CARLOS SCHMIDT RESIDENT Reason for Visit: Breakthrough seizure History of Present Illness 44-year-old female with a history of seizures, COPD, and stroke, presents to the hospital with multiple seizure episodes today. The patient reports experiencing three seizures this afternoon, occurring [id number]. The first seizure lasted approximately 1 minute, followed by a second seizure 15 minutes later lasting 30 seconds, and a third seizure an hour after that. The patient states that the seizures can occur while she is simply sitting and watching TV. After the first seizure, she experienced some confusion. Currently, she denies any confusion and is able to communicate clearly. She reports taking her prescribed seizure medications, Lamictal, Topamax and Keppra (750 mg twice daily), prior to coming to the hospital. She also takes midodrine 10 mg for hypotension. She uses home oxygen at 2 liters due to COPD. The patient reports a history of stroke with residual Rt-sided weakness. She also mentions having sleep apnea and uses a CPAP machine at night. The patient reports good bowel movements but acknowledges urinary incontinence, noting that her diaper is currently fully soaked. She also experiences incontinence during seizure episodes. She takes Lasix for leg swelling, Past Medical History - Seizure disorder, with recent episodes - Pre-diabetes with elevated blood sugar - Chronic Obstructive Pulmonary Disease (COPD), requiring home oxygen - History of stroke with residual Rt-sided weakness - Sleep apnea, using CPAP machine - Incontinence - Depression, - High Lipids, - hypotension - Schizophrenia, - TIA, Smoke: No ALCOHOL: none Drugs: None Review of Systems Review of Systems CONSTITUTIONAL: Denies weight loss, fever and chills. HEENT: Denies changes in vision and hearing. RESPIRATORY: Denies SOB and cough. CV: Denies palpitations and chest pain. GI: Denies abdominal pain, nausea, vomiting and diarrhea. : Denies dysuria and urinary frequency. MSK: Denies myalgia and joint pain. SKIN: Denies rash and pruritus. NEUROLOGICAL: Denies headache Allergies: Coded Allergies: NO KNOWN ALLERGIES (Unverified , 04/30/10) Medications Current Medications Medications Dose Ordered Sig/Ponce Route Start Time Stop Time Status Last Admin Dose Admin Sodium Chloride 10 ml Q8HR IV 01/24/25 06:00 Sodium Chloride 1,000 ml @ 60 mls/hr [id number] IV 01/23/25 23:00 Ondansetron HCl 4 mg Q4HP PRN IV 01/23/25 23:00 Enoxaparin Sodium 40 mg DAILY SC 01/24/25 10:00 Acetaminophen 650 mg Q6HP PRN PO 01/23/25 23:00 Nitroglycerin 0.4 mg Q5MINP PRN SL 01/23/25 23:00 Morphine Sulfate 2 mg Q30M PRN IV 01/23/25 23:00 Atorvastatin Calcium 40 mg HS PO 01/24/25 22:00 Levetiracetam 100 ml @ 400 mls/hr BID IV 01/24/25 10:00 Sodium Chloride 10 ml Q8HR IV 01/24/25 06:00 Acetaminophen/ Hydrocodone Bitart 1 tab Q4HP PRN PO 01/23/25 23:00 Docusate Sodium 100 mg BIDPRN PRN PO 01/23/25 23:00 Acetaminophen 650 mg Q6HP PRN PO 01/23/25 23:00 Risperidone 1 mg BID PO 01/24/25 10:00 UNV Topiramate 100 mg BID PO 01/24/25 10:00 UNV Patient Own Medication 1 tab DAILY PO 01/24/25 10:00 UNV Patient Own Medication 1 tab DAILY PO 01/24/25 10:00 UNV Levetiracetam 100 ml @ 400 mls/hr BID IV 01/24/25 10:00 UNV Exam Vital Signs Vital Signs Date Time Temp Pulse Resp B/P (MAP) Pulse Ox O2 Delivery O2 Flow Rate FiO2 01/23/25 22:00 87 26 119/66 (83) 97 01/23/25 20:20 Room Air* 0 21 01/23/25 20:20 98.6 98.6 Exam GENERAL: Not in acute distress. HEENT: EOMI, Moist mucous membranes. No scleral icterus. No cervical lymphadenopathy. LUNGS: Clear to auscultation bilaterally. No accessory muscle use. CARDIOVASCULAR: Regular rate and rhythm. No murmur. No JVD. ABDOMEN: Soft, nontender and nondistended. No palpable masses. EXTREMITIES: No edema. Nontender. SKIN: No rashes or lesions. Warm. NEUROLOGIC: Alert and oriented X3 Labs/Xrays Labs Test 01/23/25 19:48 01/23/25 19:05 Range/Units White Blood Count 11.1 H 4.4-10.8 10^3/uL Red Blood Count 4.60 4.0-5.20 10^6/uL Hemoglobin 13.6 12.2-16.2 g/dL Hematocrit 41.1 36.0-46.0 % Mean Corpuscular Volume 89.4 80.0-100.0 fL Mean Corpuscular Hemoglobin 29.5 28.0-32.0 pg Mean Corpuscular Hemoglobin Concent 33.0 32.0-36.0 g/dL Red Cell Distribution Width 14.1 11.8-14.3 % Platelet Count 316 140-450 10^3/uL Mean Platelet Volume 7.8 6.9-10.8 fL Neutrophils (%) (Auto) 52.4 37.0-80.0 % Lymphocytes (%) (Auto) 30.0 10.0-50.0 % Monocytes (%) (Auto) 10.2 0.0-12.0 % Eosinophils (%) (Auto) 6.5 0.0-7.0 % Basophils (%) (Auto) 0.9 0.0-2.0 % Neutrophils # (Auto) 5.8 1.6-8.6 10 ^3/uL Lymphocytes # (Auto) 3.3 0.4-5.4 10 ^3/uL Monocytes # (Auto) 1.1 0-1.3 10 ^3/uL Eosinophils # (Auto) 0.7 0-0.8 10 ^3/uL Basophils # (Auto) 0.1 0-0.2 10 ^3/uL Nucleated Red Blood Cells 0.1 % Sodium Level 141 136-145 mmol/L Potassium Level 3.8 3.5-5.1 mmol/L Chloride Level 107 98-107 mmol/L Carbon Dioxide Level 24 20-31 mmol/L Anion Gap 10 5-15 Blood Urea Nitrogen 15 9-23 mg/dL Creatinine 0.95 0.550-1.02 mg/dL Glomerular Filtration Rate Calc 76 >90 mL/min BUN/Creatinine Ratio 15.8 10.0-20.0 Serum Glucose 96 74-106 mg/dL Calcium Level 10.0 8.7-10.4 mg/dL POC Glucose 108 H 70-106 mg/dl SEPSIS Sepsis Screen Date sepsis recognized/suspect: Jan 23, 2025 Time Sepsis recognized/suspect: 1857 Recent Procedure: No On Antibiotic Therapy: No Respiratory Rate >20: No Heart Rate >90: No Temp<36 C (96.8 F) or >38.3 C: No SBP <90 or MAP <65 mmHG: No New Acute Mental Status Change: No Is the patient on CPAP, BIPAP,: No Physician Orders Electrocardigram (01/23/25 19:11) Urinalysis (01/23/25 19:30) Head Without Contrast (01/23/25 19:30) Admit (01/23/25 22:48) Code Status (01/23/25 22:48) Sodium Chloride Lock (Saline Lock Ns) (01/24/25 06:00) Sodium Chloride 0.9% (01/23/25 23:00) Ondansetron Hcl (Zofran) (01/23/25 23:00) Enoxaparin Sodium (Lovenox) (01/24/25 10:00) Complete Blood Count (01/24/25 04:00) Comprehensive Metabolic Panel (01/24/25 04:00) Pt Request For Service (01/23/25 22:48) Echo 2d Mode Cardiac Dop (01/23/25 22:48) Acetaminophen Tablet (Tylenol Tablet) (01/23/25 23:00) Nitroglycerin Sublingual (Ntrostat Subli (01/23/25 23:00) Morphine Sulfate Injection (01/23/25 23:00) Oxygen By Nasal Cannula (01/23/25 22:48) Notify Md Of Changes From Base (01/23/25 22:48) Curriculum Advisory Teacher For 24 Hours (01/23/25 22:48) Rhythm Strips Once Every Shift (01/23/25 22:48) Levetiracetam (Keppra) (01/23/25 22:48) *Consult Dr. Ghulam Chan (01/23/25 22:48) Atorvastatin (Lipitor) (01/24/25 22:00) Levetiracetam 1000 Mg/100ml (Levetiracet (01/24/25 10:00) Allergies (01/23/25 22:58) Code Status (01/23/25 22:58) Sodium Chloride Lock (Saline Lock Ns) (01/24/25 06:00) Oxygen Per Hour (01/23/25 22:58) Hydrocodone-Acet 5/325mg Tab (Dawson 5/32 (01/23/25 23:00) Docusate Sodium Capsule (Colace Capsule) (01/23/25 23:00) Fall Risk Precautions In Place QSHIFT (01/23/25 22:58) Cardiac Diet-2gna,Lofat,Lochol (01/24/25 Breakfast) Condition: Serious (01/23/25 22:58) Acetaminophen Tablet (Tylenol Tablet) (01/23/25 23:00) Maintain Bed Rest (01/23/25 22:58) Sequential Compression Device (01/23/25 ) Risperidone Tablet (Risperdal Tablet) (01/24/25 10:00) Topiramate (Topamax) (01/24/25 10:00) (Nf) Atorvastatin Calcium (01/24/25 10:00) (Nf) Escitalopram Oxalate (01/24/25 10:00) Levetiracetam 500 Mg/100ml (Levetiraceta (01/24/25 10:00) Insert Blum Catheter QSHIFT (01/23/25 23:01) Chest Portable (01/23/25 23:01) Drug Screen (01/23/25 23:11) Covid19 Antigen Jaimee (01/23/25 ) Lactic Acid W/ Reflex Order (01/24/25 04:00) Magnesium (01/24/25 04:00) Rapid Influenza A&B (01/23/25 23:11) Thyroid Stimulating Hormone (01/23/25 23:11) B-Type Natriuretic Peptide (01/23/25 23:11) Vital Signs Date Time Temp Pulse Resp B/P (MAP) Pulse Ox O2 Delivery O2 Flow Rate FiO2 01/23/25 22:00 87 26 119/66 (83) 97 01/23/25 20:20 88 13 98 Room Air* 0 21 01/23/25 20:20 98.6 88 13 127/76 (93) 98 98.6 01/23/25 19:03 93 01/23/25 19:00 98.9 96 20 112/68 (83) 96 98.9 Laboratory Tests Test 01/23/25 19:48 White Blood Count 11.1 10^3/uL (4.4-10.8) H Medications Medications Dose Ordered Sig/Ponce Route Start Time Stop Time Status Last Admin Dose Admin Levetiracetam 100 ml @ 400 mls/hr ONCE ONCE IV 01/23/25 19:30 01/23/25 19:44 DC 01/23/25 20:20 400 MLS/HR Sodium Chloride 1,000 ml @ 1,000 mls/hr Q1H ONCE IV 01/23/25 19:30 01/23/25 20:29 DC 01/23/25 20:20 1,000 MLS/HR Assessment/Plan Assessment/Plan # tonic-clonic seizure # Chronic Obstructive Pulmonary Disease (COPD) # Seizure disorder, with recent episodes # Pre-diabetes with elevated blood sugar # Chronic Obstructive Pulmonary Disease (COPD), requiring home oxygen # History of stroke with residual Rt-sided weakness # Sleep apnea, using CPAP machine # Incontinence # Depression, # High Lipids, # hypotension # Schizophrenia, # TIA, Plan: - Continue current antiepileptic medications: Topamax and Keppra 750 mg I/V BID - Neurology consult - Continue sleep apnea treatment - Monitor oxygen saturation and continue oxygen therapy at 2 L/min - Check blood glucose levels, ordered hemoglobin A1c - continue aspirin and Plavix for stroke - continue atorvastatin Goal of care discussed with patient for 37 minutes: Full code Plan discussed with Dr. Junior Plan discussed with: Patient My Orders Orders - JUAN CARLOS SCHMIDT RESIDENT Procedure Category Date Status Time Admit ADMIT 01/23/25 Transmitted 22:48 Code Status CODE 01/23/25 Transmitted 22:48 Sodium Chloride Lock PHA 01/24/25 In Process (Saline Lock Ns) 06:00 Sodium Chloride 0.9% PHA 01/23/25 In Process 23:00 Ondansetron Hcl PHA 01/23/25 In Process (Zofran) 23:00 Enoxaparin Sodium PHA 01/24/25 In Process (Lovenox) 10:00 Complete Blood Count LAB 01/24/25 Verified 04:00 Comprehensive LAB 01/24/25 Verified Metabolic Panel 04:00 Pt Request For Service PT 01/23/25 Logged 22:48 Echo 2d Mode Cardiac US 01/23/25 Logged DOP 22:48 Acetaminophen Tablet PHA 01/23/25 In Process (Tylenol Tablet) 23:00 Nitroglycerin PHA 01/23/25 In Process Sublingual (Ntrostat 23:00 Morphine Sulfate PHA 01/23/25 In Process Injection 23:00 Oxygen By Nasal RT 01/23/25 Transmitted Cannula 22:48 Notify Of Changes [facility] 01/23/25 In Process From Base 22:48 Curriculum Advisory Teacher For [facility] 01/23/25 In Process 24 Hours 22:48 Rhythm Strips Once [facility] 01/23/25 In Process Every Shift 22:48 Levetiracetam (Keppra) LAB 01/23/25 Logged 22:48 *Consult Dr[address] Parmar CONS 01/23/25 Transmitted Chan 22:48 Risperidone Tablet PHA 01/24/25 Logged (Risperdal Tablet) 10:00 Topiramate (Topamax) PHA 01/24/25 Logged 10:00 (Nf) Atorvastatin PHA 01/24/25 Logged Calcium 10:00 (Nf) Escitalopram PHA 01/24/25 Logged Oxalate 10:00 Levetiracetam 500 PHA 01/24/25 Logged Mg/100ml (Levetiraceta 10:00 Insert Blum Catheter [facility] 01/23/25 In Process 23:01 Chest Portable XY 01/23/25 Logged 23:01 Drug Screen LAB 01/23/25 Logged 23:11 Covid19 Antigen Jaimee LAB 01/23/25 Logged Lactic Acid W/ Reflex LAB 01/24/25 Verified Order 04:00 Magnesium LAB 01/24/25 Verified 04:00 Rapid Influenza A&B LAB 01/23/25 Logged 23:11 Thyroid Stimulating LAB 01/23/25 Logged Hormone 23:11 B-Type Natriuretic LAB 01/23/25 Logged Peptide 23:11 Date of Service: Jan 23, 2025 Billing Provider: KOFI JUNIOR MD Common Visit Codes: [id number] INP/OBS CARE (HIGH) JUAN CARLOS SCHMIDT RESIDENT Jan 23, 2025 23:14 KOFI JUNIOR MD Jan 24, 2025 21:54
[2025-01-23] MEDS: SODIUM CHLORIDE 0.9% 1,000 ML IV SCH (23:20)
--- NOTE | 2025-01-24 00:43 | DVH ---
CHEST RADIOGRAPH Indication: Rulw out pulmonary edema Technique: Single frontal view of the chest was obtained COMPARISON: XY CHEST XRAY 1 VIEW on DOS: 01/19/25 FINDINGS: Lines and Tubes: None Lungs: Clear Pleura: No significant pleural effusion. No pneumothorax. Cardiomediastinal contours: Unremarkable IMPRESSION: No acute disease.
[2025-01-24] MEDS ORDERED: IPRATROPIUM BROM 0.5 MG/2.5ML INH SOL NEB SCH ×2 (02:00→06:00)
--- NOTE | 2025-01-24 02:38 | DVHDSRES ---
Discharge Summary Date of Admission Resident Creating Document: JUAN CARLOS SCHMIDT RESIDENT Jan 23, 2025 at 22:48 Date of Discharge: Jan 24, 2025 Admitting Diagnosis Tonic-clonic seizure Labs/Diagnostic Data: Laboratory Results Test 01/23/25 23:25 01/23/25 19:48 01/23/25 19:05 White Blood Count 11.1 10^3/uL (4.4-10.8) Red Blood Count 4.60 10^6/uL (4.0-5.20) Hemoglobin 13.6 g/dL (12.2-16.2) Hematocrit 41.1 % (36.0-46.0) Mean Corpuscular Volume 89.4 fL (80.0-100.0) Mean Corpuscular Hemoglobin 29.5 pg (28.0-32.0) Mean Corpuscular Hemoglobin Concent 33.0 g/dL (32.0-36.0) Red Cell Distribution Width 14.1 % (11.8-14.3) Platelet Count 316 10^3/uL (140-450) Mean Platelet Volume 7.8 fL (6.9-10.8) Neutrophils (%) (Auto) 52.4 % (37.0-80.0) Lymphocytes (%) (Auto) 30.0 % (10.0-50.0) Monocytes (%) (Auto) 10.2 % (0.0-12.0) Eosinophils (%) (Auto) 6.5 % (0.0-7.0) Basophils (%) (Auto) 0.9 % (0.0-2.0) Neutrophils # (Auto) 5.8 10 ^3/uL (1.6-8.6) Lymphocytes # (Auto) 3.3 10 ^3/uL (0.4-5.4) Monocytes # (Auto) 1.1 10 ^3/uL (0-1.3) Eosinophils # (Auto) 0.7 10 ^3/uL (0-0.8) Basophils # (Auto) 0.1 10 ^3/uL (0-0.2) Nucleated Red Blood Cells 0.1 % Sodium Level 141 mmol/L (136-145) Potassium Level 3.8 mmol/L (3.5-5.1) Chloride Level 107 mmol/L (98-107) Carbon Dioxide Level 24 mmol/L (20-31) Anion Gap 10 (5-15) Blood Urea Nitrogen 15 mg/dL (9-23) Creatinine 0.95 mg/dL (0.550-1.02) Glomerular Filtration Rate Calc 76 mL/min (>90) BUN/Creatinine Ratio 15.8 (10.0-20.0) Serum Glucose 96 mg/dL (74-106) Calcium Level 10.0 mg/dL (8.7-10.4) B-Type Natriuretic Peptide 13.47 pg/mL (0-100) Thyroid Stimulating Hormone (TSH) 4.48 uIU/mL (0.55-4.78) POC Glucose 108 mg/dl (70-106) Other Laboratory Tests 01/23/25 19:48 Brief Hx & Hospital Course: 44-year-old female with a history of seizures, COPD, and stroke, presents to the hospital with multiple seizure episodes today. The patient reports experiencing three seizures this afternoon, occurring [id number]. The first seizure lasted approximately 1 minute, followed by a second seizure 15 minutes later lasting 30 seconds, and a third seizure an hour after that. The patient states that the seizures can occur while she is simply sitting and watching TV. After the first seizure, she experienced some confusion. Currently, she denies any confusion and is able to communicate clearly. She reports taking her prescribed seizure medications, Lamictal, Topamax and Keppra (750 mg twice daily), prior to coming to the hospital. She also takes midodrine 10 mg for hypotension. She uses home oxygen at 2 liters due to COPD. The patient reports a history of stroke with residual Rt-sided weakness. She also mentions having sleep apnea and uses a CPAP machine at night. The patient reports good bowel movements but acknowledges urinary incontinence, noting that her diaper is currently fully soaked. She also experiences incontinence during seizure episodes. She takes Lasix for leg swelling, Patient wanted to leave the hospital against medical advice (AMA), patient was educated about the sequence of AMA, patient verbalized understanding and wants to leave the hospital AMA. Condition at Discharge: Guarded Final Diagnosis/Problems List # tonic-clonic seizure # Seizure disorder, with recent episodes # Pre-diabetes with elevated blood sugar # Chronic Obstructive Pulmonary Disease (COPD), requiring home oxygen # History of stroke with residual Rt-sided weakness # Sleep apnea, using CPAP machine # Incontinence # Depression, # High Lipids, # hypotension # Schizophrenia, # TIA, Discharge Disposition: AMA SNF Discharge Will this Physician continue t: No Discharge Instruct/Medications Scheduled Aspirin (Aspirin Low Dose), 81 MG PO DAILY Atorvastatin Calcium (Atorvastatin Calcium), 1 TAB PO DAILY, (Reported) Clopidogrel Bisulfate (Clopidogrel), 75 MG PO DAILY Escitalopram Oxalate (Escitalopram Oxalate), 1 TAB PO DAILY, (Reported) Furosemide (Furosemide), 1 TAB PO DAILY, (Reported) Lamotrigine (Lamotrigine), 2 PO BID, (Reported) Nitrofurantoin Monohydrate Mac (Macrobid), 100 MG PO BID Risperidone (Risperidone), 1 TAB PO BID, (Reported) Topiramate (Topiramate), 1 TAB PO BID, (Reported) Miscellaneous Medications Albuterol Sulfate (Ventolin Hfa), (Reported) [Depakote], (Reported) [Zoloft], (Reported) Discharge Statement: "Patient was advised to return to the ER or call 911 if any headaches, dizziness, shortness of breath, chest pain, abdominal pain, bleeding, fevers, or worsening of medical condition. Patient was counseled about treatment plan, medications, possible side effects, patientverbalized understanding. All questions were answered to the best of my ability. This discharge took greater then 30 minutes in planning, reviewing documentation, counseling the patient, and discussing with other team members." ASSESSMENT ASSESSMENT Assessment JUAN CARLOS SCHMIDT RESIDENT Jan 24, 2025 02:38
[2025-01-24] MEDS ORDERED: ALBUTEROL SULF 2.5 MG/0.5ML(0.5%) NEB SOLN NEB SCH (06:00)
[2025-01-24] MEDS ORDERED: SODIUM CHLOR 0.9% PF (SALINE LOCK) 10ML VIAL/SYR IV SCH ×2 (06:00)
[2025-01-24] MEDS ORDERED: PATIENTS OWN MEDICATION (Escitalopram Oxalate 1 TAB) PO SCH (10:00)
[2025-01-24] MEDS ORDERED: risperiDONE 1 MG TAB PO SCH (10:00)
[2025-01-24] MEDS ORDERED: PATIENTS OWN MEDICATION (Atorvastatin Calcium 1 TAB) PO SCH (10:00)
[2025-01-24] MEDS ORDERED: levETIRAcetam 500 mg/100ml 100 ML IV SCH (10:00)
[2025-01-24] MEDS ORDERED: TOPIRAMATE 100 MG TAB PO SCH (10:00)
[2025-01-24] MEDS ORDERED: levETIRAcetam 1000 mg/100ml 100 ML IV SCH (10:00)
[2025-01-24] MEDS ORDERED: ENOXAPARIN SOD 40 MG/0.4 ML SYRINGE SC SCH (10:00)
[2025-01-24] MEDS ORDERED: CITALOPRAM HYDROBR 20 MG TAB PO SCH (10:00)
[2025-01-24] MEDS ORDERED: ATORVASTATIN 20 MG TAB PO SCH ×2 (22:00)
--- NOTE | 2025-01-25 16:13 | ECG ---
[facility] Test Date: 2025-01-23 Test Time: 19:03:41 Pat Name: BRANDON STERLING Department: ER Room: [address] [place] [address] A Gender: F Choral Teacher: CELINE : 1980 Requested By: LAVERN HEWITT Order Number: [id number] Reading MD: Osvaldo Clark Measurements Intervals [place] Rate: 93 P: 29 AK: 161 QRS: 0 QRSD: 81 T: 38 QT: 413 QTc: 514 Interpretive Statements Sinus rhythm Probable anterior infarct, age indeterminate Prolonged QT interval Electronically Signed On 01-25-2025 19:28:52 PDT by Osvaldo Clark Please click the below link to view image of tracing.
== END 2025-01-24 00:01 | disposition left against medical advice (07) | DRG 53 ==
LOC: ER 18:42 → OVERFLOW 22:48
PROVIDERS: ADMIT Internal Medicine; ATTEND Internal Medicine
DX: G40.409 Other generalized epilepsy and epileptic syndromes, not intractable, without status epilepticus (principal); G45.9 Transient cerebral ischemic attack, unspecified; Z99.81 Dependence on supplemental oxygen; I95.9 Hypotension, unspecified; I69.351 Hemiplegia and hemiparesis following cerebral infarction affecting right dominant side; J44.9 Chronic obstructive pulmonary disease, unspecified; F31.9 Bipolar disorder, unspecified; F20.9 Schizophrenia, unspecified; I10 Essential (primary) hypertension; R73.03 Prediabetes; G47.30 Sleep apnea, unspecified; E78.5 Hyperlipidemia, unspecified; Z79.899 Other long term (current) drug therapy; Z90.710 Acquired absence of both cervix and uterus; Z53.29 Procedure and treatment not carried out because of patient's decision for other reasons
CPT/HCPCS: 36415; 70450; 71045; 80048; 82542; 82962; 83880; 84443; 85025; 93005; G0378

== ENCOUNTER 2025-01-25 18:37 | Inpatient (IN) | payer MEDICAID, MEDICARE ==
[~2025-01-25] VITALS: Ht 165.1 cm; Wt 131.0 kg
--- NOTE | 2025-01-25 18:44 | ED.PDOC ---
HPI (NEURO) HPI Comments 44 y.o female with PMHx of seizures, HLD, HTN, BPD and schizophrenia, presents to the ED via EMS s/p multiple witnessed seizure today. Boyfriend called 911 today after witnessing 3 back to back seizures and one witnessed by EMS en route lasting 30 seconds and described as tonic clonic. EMS administrated 2.5 versed IV but stopped it upon ED arrival. Patient is alert and oriented x 4 with no symptoms at this time. Patient denies any recent changes in medication, or recent illness. Patient is on Keppra 750mg BID and is compliant with taking it. Time Seen by MD: 18:36 Primary Care Provider: JACE Jarvis Notes: Nurses Notes, Medications, Allergies Information Source: Patient, Emergency Med Personnel Mode of Arrival: EMS Severity: Moderate Headache Severity: None Timing: Hours Duration: Since onset Prehospital treatment: 12 Lead EKG, Treatment (2.5 versed IV ) Seizure Quality: Tonic-clonic, Mulitple Episodes Seizure Location: Generalized Onset: At rest Circumstances: Spontaneous Symptoms: None Before: Normal During: LOC After: Normal Mentation History of: Hypertension, Seizure Disorder Modifying factors: Nothing Associated Signs and Symptoms: None Past Medical History PAST MEDICAL HISTORY: Depression, DM, High Lipids, HTN, Schizophrenia, Se izures, TIA, UTI'S Surgical History: Hysterectomy Family History Family History: No family hx of HTN Social History Smoker: Non-Smoker Alcohol: Denies ETOH Use Drugs: Denies Drug Use Lives In: Home Constitutional: denies: chills, diaphoresis, fatigue, fever, malaise, sweats, weakness, others EENTM: denies: blurred vision, double vision, ear bleeding, ear discharge, ear drainage, ear pain, ear ringing, eye pain, eye redness, hearing loss, mouth pain, mouth swelling, nasal discharge, nose bleeding, nose congestion, nose pain, photophobia, tearing, throat pain, throat swelling, voice changes, others Respiratory: denies: cough, hemoptysis, orthopnea, SOB at rest, shortness of breath, SOB with excertion, stridor, wheezing, others Cardiovascular: denies: chest pain, dizzy spells, diaphoresis, Dyspnea on exertion, edema, irregular heart beat, left arm pain, lightheadedness, palpitations, PND, syncope, others Gastrointestinal: denies: abdomen distended, abdominal pain, blood streaked bowels, constipated, diarrhea, dysphagia, difficulty swallowing, hematemesis, melena, nausea, poor appetite, poor fluid intake, rectal bleeding, rectal pain, vomiting, others Genitourinary: denies: abnormal vagina bleeding, burning, dyspareunia, dysuria, flank pain, frequency, hematuria, incontinence, pain, , vagina discharge, urgency, others Neurological: reports: seizure; denies: dizziness, fainting, headache, left sided numbness, left sided weakness, numbness, paresthesia, pre-existing deficit, right sided numbness, right sided weakness, speech problems, tingling, tremors, weakness, others Musculoskeletal: denies: back pain, gout, joint pain, joint swelling, muscle pain, muscle stiffness, neck pain, others Integumetry: denies: bruises, change in color, change in hair/nails, dryness, laceration, lesions, lumps, rash, wounds, others Allergic/Immunocompromised: denies: Difficulty Healing, Frequent Infections, Hives, Itching, others Hematologic/Lymphatic: denies: anemia, blood clots, easy bleeding, easy bruising, swollen glands, others Endocrine: denies: excessive hunger, excessive sweating, excessive thirst, excessive urination, flushing, intolerance to cold, intolerance to heat, unexplained weight gain, unexplained weight loss, others Psychiatric: denies: anxiety, bipolar disorder, depression, hopeless, panic disorder, schizophrenia, sleepless, suicidal, others All Other Systems: Reviewed and Negative Physical Exam General Appearance: Moderate Distress HEENT: Normal ENT Inspection, Pharynx Normal, TMs Normal Neck: Full Range of Motion, Non-Tender, Normal, Normal Inspection Respiratory: Chest Non-Tender, Lungs Clear, No Accessory Muscle Use, No Respiratory Distress, Normal Breath Sounds Cardiovascular: No Edema, No JVD, No Murmur, No Gallop, Normal Peripheral Pulses, Regular Rate/Rhythm Breast Exam: Deferred Gastrointestinal: No Organomegaly, Non Tender, No Pulsatile Mass, Normal Bowel Sounds, Soft Genitalia: Deferred Pelvic: Deferred Rectal: Deferred Extremities: No calf tenderness, Normal capillary refill, Normal inspection, Normal range of motion, Non-tender, No pedal edema Musculoskeletal : Apperance: Normal Neurologic: Alert, teamsite developer II-XII nml as Tested, Motor Weakness, Normal Affect, Normal Mood, No Sensory Deficits Cerebellar Function: Normal Reflexes: Normal Skin: Dry, Normal Color, Warm Lymphatic: No Adenopathy EKG EKG : Pulse Rate (adult): 95 Cardiac Rhythm: NSR Was a procedure done? Was a procedure done?: No Differential Diagnosis (SZ) Seizure: Psychogenic Seizure, Anticonvulsant Withdrawl, Syncope, Encephalopathy, Epilepsy-Break Through, Epilepsy-Status X-Ray, Labs, Meds, VS Vital Signs Date Time Temp Pulse Resp B/P (MAP) Pulse Ox O2 Delivery O2 Flow Rate FiO2 01/25/25 20:41 80 13 115/79 (91) 97 01/25/25 18:48 98.4 95 18 150/93 (112) 98 98.4 01/25/25 18:48 95 01/25/25 18:43 95 Lab Test 01/25/25 18:58 Range/Units White Blood Count 10.7 4.4-10.8 10^3/uL Red Blood Count 4.66 4.0-5.20 10^6/uL Hemoglobin 13.9 12.2-16.2 g/dL Hematocrit 42.0 36.0-46.0 % Mean Corpuscular Volume 90.1 80.0-100.0 fL Mean Corpuscular Hemoglobin 30.0 28.0-32.0 pg Mean Corpuscular Hemoglobin Concent 33.2 32.0-36.0 g/dL Red Cell Distribution Width 14.2 11.8-14.3 % Platelet Count 323 140-450 10^3/uL Mean Platelet Volume 7.4 6.9-10.8 fL Neutrophils (%) (Auto) 55.4 37.0-80.0 % Lymphocytes (%) (Auto) 29.3 10.0-50.0 % Monocytes (%) (Auto) 8.5 0.0-12.0 % Eosinophils (%) (Auto) 6.2 0.0-7.0 % Basophils (%) (Auto) 0.6 0.0-2.0 % Neutrophils # (Auto) 5.9 1.6-8.6 10 ^3/uL Lymphocytes # (Auto) 3.1 0.4-5.4 10 ^3/uL Monocytes # (Auto) 0.9 0-1.3 10 ^3/uL Eosinophils # (Auto) 0.7 0-0.8 10 ^3/uL Basophils # (Auto) 0.1 0-0.2 10 ^3/uL Nucleated Red Blood Cells 0.0 % Sodium Level 142 136-145 mmol/L Potassium Level 4.1 3.5-5.1 mmol/L Chloride Level 109 H 98-107 mmol/L Carbon Dioxide Level 25 20-31 mmol/L Anion Gap 8 5-15 Blood Urea Nitrogen 14 9-23 mg/dL Creatinine 0.89 0.550-1.02 mg/dL Glomerular Filtration Rate Calc 82 >90 mL/min BUN/Creatinine Ratio 15.7 10.0-20.0 Serum Glucose 95 74-106 mg/dL Calcium Level 10.3 8.7-10.4 mg/dL Current Medications Medications (Trade) Dose Ordered Sig/Ponce Route Start Time Stop Time Status Last Admin Levetiracetam 100 ml @ 400 mls/hr ONCE ONCE IV 01/25/25 18:45 01/25/25 18:59 DC 01/25/25 19:23 IV Hep-Lock was established The patient was given Keppra IV piggyback The CBC and chemistry panel are within normal limits At this time, the patient is being admitted to the hospitalist A neurology consult will be obtained Images Reviewed?: Images reviewed and evaluated by me Time of 1ST Reevaluation: 18:40 Reevaluation 1ST: Unchanged Patient Education/Counseling: Diagnosis, Treatment, Prognosis Family Education/Counseling: No Family Present Departure 1 Departure Time of Disposition: 21:00 Impression: Primary Impression: Increasing frequency of seizure activity Disposition: ADMITTED INPATIENT Admit to: Tele Condition: Fair Critical Care Note Critical Care Time?: Yes (45 min-critical care time only) Stability Stability form required: Yes Unstable for transfer: Telemetry monitoring (Telemetry monitoring required), ED Physician Assesment (Clinical assesment) I personally scribed for HORTENCIA SHELDON MD ([email or web address]) on 01/25/25 at 18:43. Electronically submitted by Usha Barajas ([facility]). I personally scribed for HORTENCIA SHELDON MD ([email or web address]) on 01/25/25 at 18:45. Electronically submitted by Usha Barajas ([facility]). HORTENCIA SHELDON MD Jan 25, 2025 18:43
[2025-01-25 19:12] LABS: Hematocrit 42.0 % (36.0-46.0); Hemoglobin 13.9 g/dL (12.2-16.2); Mean Corpuscular Hemoglobin 30.0 pg (28.0-32.0); Mean Corpuscular Volume 90.1 fL (80.0-100.0); Nucleated Red Blood Cells % 0.0 %
[2025-01-25 19:20] LABS: Potassium 4.1 mmol/L (3.5-5.1); Sodium 142 mmol/L (136-145)
[2025-01-25 19:21] LABS: Anion Gap 8 (5-15); Calcium 10.3 mg/dL (8.7-10.4); Carbon Dioxide 25 mmol/L (20-31); Chloride 109 mmol/L (98-107)
[2025-01-25] MEDS: levETIRAcetam 1000 mg/100ml 100 ML IV ONE (19:23)
[2025-01-25 19:26] LABS: BUN/Creatinine Ratio 15.7 (10.0-20.0); Blood Urea Nitrogen 14 mg/dL (9-23); Glucose 95 mg/dL (74-106)
[2025-01-25 21:06] VITALS: PULSE 80; RESP 13; O2SAT 97
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
[2025-01-25] MEDS ORDERED: NITROGLYCERIN 0.4 MG SL TAB SL PRN (23:15)
[2025-01-25] MEDS ORDERED: MORPHINE SULFATE INJ 2 MG/ml SYRG IV PRN (23:15)
[2025-01-26] MEDS ORDERED: hydrOXYzine 25 MG TAB or CAP PO PRN
[2025-01-26 00:17] VITALS: BP 101/57; PULSE 82; RESP 20; TEMP 99.3; O2SAT 98
[2025-01-26] MEDS ORDERED: LORazepam 2MG/ML-1ML VIAL IV PRN (02:45)
[2025-01-26 05:00] VITALS: BP 136/78; TEMP 98.5
--- NOTE | 2025-01-26 05:10 | ECG ---
[facility] Test Date: 2025-01-25 Test Time: 18:43:05 Pat Name: BRANDON STERLING Department: ER Room: [address] [place] [address] A Gender: F Health Screener: SHELDON : 1980 Requested By: HORTENCIA SHELDON Order Number: [id number] Reading MD: Osvaldo Clark Measurements Intervals [place] Rate: 95 P: 30 ME: 174 QRS: 223 QRSD: 80 T: 41 QT: 390 QTc: 491 Interpretive Statements Sinus rhythm Markedly posterior QRS axis Low voltage, precordial leads Consider anterior infarct Electronically Signed On 02-01-2025 22:00:16 PDT by Osvaldo Clark Please click the below link to view image of tracing.
[2025-01-26] MEDS: PANTOPRAZOLE 40 MG TAB PO SCH (06:00)
[2025-01-26 07:33] VITALS: PULSE 90; RESP 20; O2SAT 95
[2025-01-26] MEDS: ALBUTEROL SULF 2.5 MG/0.5ML(0.5%) NEB SOLN NEB SCH (07:33)
[2025-01-26 07:37] VITALS: PULSE 90; RESP 20; O2SAT 95
[2025-01-26] MEDS ORDERED: risperiDONE 1 MG TAB PO SCH (10:00)
[2025-01-26] MEDS ORDERED: ENOXAPARIN SOD 40 MG/0.4 ML SYRINGE SC SCH (10:00)
[2025-01-26] MEDS ORDERED: levETIRAcetam 500 MG TAB PO SCH (10:00)
[2025-01-26] MEDS ORDERED: FUROSEMIDE 20 MG TAB PO SCH (10:00)
[2025-01-26] MEDS ORDERED: CLOPIDOGREL BISULFATE 75 MG TAB PO SCH (10:00)
[2025-01-26] MEDS ORDERED: TOPIRAMATE 100 MG TAB PO SCH (10:00)
[2025-01-26] MEDS ORDERED: BENZTROPINE MESY 0.5 MG TAB PO SCH (10:00)
[2025-01-26] MEDS ORDERED: lamoTRIgine 100 MG TAB PO SCH (10:00)
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
[2025-01-26] MEDS ORDERED: ATORVASTATIN 20 MG TAB PO SCH (22:00)
== END 2025-01-26 08:30 | disposition left against medical advice (07) | DRG 53 ==
LOC: EDUNIT# 18:37 → EDBD 18:37 → ER 18:37 → OVERFLOW 23:03
PROVIDERS: ADMIT Internal Medicine; ATTEND Emergency Medicine
DX: G40.409 Other generalized epilepsy and epileptic syndromes, not intractable, without status epilepticus (principal); Z99.81 Dependence on supplemental oxygen; E11.9 Type 2 diabetes mellitus without complications; E66.01 Morbid (severe) obesity due to excess calories; J44.9 Chronic obstructive pulmonary disease, unspecified; I10 Essential (primary) hypertension; F31.9 Bipolar disorder, unspecified; F20.9 Schizophrenia, unspecified; Z68.42 Body mass index [BMI] 45.0-49.9, adult; E78.5 Hyperlipidemia, unspecified; G47.33 Obstructive sleep apnea (adult) (pediatric); N20.0 Calculus of kidney; Z53.29 Procedure and treatment not carried out because of patient's decision for other reasons; Z90.710 Acquired absence of both cervix and uterus; Z87.442 Personal history of urinary calculi; Z86.73 Personal history of transient ischemic attack (TIA), and cerebral infarction without residual deficits; Z79.899 Other long term (current) drug therapy; Z79.02 Long term (current) use of antithrombotics/antiplatelets; Z87.440 Personal history of urinary (tract) infections; Z88.8 Allergy status to other drugs, medicaments and biological substances
CPT/HCPCS: 36415; 80048; 85025; 93005; 96365; 99291; G0378

== ENCOUNTER 2025-04-18 17:24 | Emergency (ER) | payer MEDICAID ==
[~2025-04-18] VITALS: Ht 165.1 cm; Wt 131.0 kg
--- NOTE | 2025-04-18 19:46 | DVH ---
CLINICAL INDICATION: right knee pain TECHNIQUE: XY R KNEE 3V XRAY Comparison: XR KNEE LIMITED RT on DOS: 09/24/24, XR KNEE COMPLETE LT on DOS: 02/20/24, XR KNEE COMPLETE RT on DOS: 09/30/22 FINDINGS/IMPRESSION: There is no evidence of acute fracture or dislocation. Soft tissues are unremarkable.
[2025-04-18 20:16] VITALS: BP 127/79; PULSE 63; RESP 20; TEMP 98.3; O2SAT 96
--- NOTE | 2025-04-18 20:22 | ED.PDOC ---
Musculoskeletal HPI Comments 44-year-old female presents to ER with complaints of right knee pain x2 months. Patient reports she started experiencing right knee pain two months ago that got worse x1 day prompting her to come to ER for further evaluation. Denies any trauma/falls/known injury and rates her current pain an 8/10 to right knee without radiation. Notes that she has taken Caneadea for her pain with slight relief and presents to ER in no distress with vitals stable. Denies fever, skin changes, numbness/tingling, hip pain or any further symptoms/complaints Chief Complaint: Lower Extremity Time Seen by MD: 18:15 Primary Care Provider: JACE Reviewed Notes: Nurses Notes, Medications, Allergies Allergies: Coded Allergies: Celecoxib (Verified Allergy, Unknown, 01/25/25) Nitroglycerin (Verified Allergy, Unknown, 04/18/25) Home Meds Active Scripts Nitrofurantoin Monohydrate Mac (Macrobid) 100 Mg Cap, 100 MG PO BID for 7 Days, #14 CAP Prov:TOMAS FAJARDO DO 12/31/24 Clopidogrel Bisulfate (CLOPIDOGREL) 75 Mg Tab, 75 MG PO DAILY for 30 Days, #30 TAB 0 Refills Prov:JENNY GAMBOA RESIDENT 10/05/24 Aspirin (Aspirin Low Dose) 81 Mg Tab, 81 MG PO DAILY for 30 Days, #30 TAB 0 Refills Prov:JENNY GAMBOA RESIDENT 10/05/24 Reported Medications Escitalopram Oxalate (ESCITALOPRAM OXALATE) 20 Mg Tab, 1 TAB PO DAILY 10/04/24 Risperidone (Risperidone) 1 Mg Tab, 1 TAB PO BID 10/04/24 Furosemide (Furosemide) 20 Mg Tab, 1 TAB PO DAILY 10/04/24 Topiramate (Topiramate) 100 Mg Tab, 1 TAB PO BID 10/04/24 Atorvastatin Calcium (ATORVASTATIN CALCIUM) 80 Mg Tab, 1 TAB PO DAILY 10/04/24 Lamotrigine (Lamotrigine) 150 Mg Tab, 2 PO BID 10/04/24 Albuterol Sulfate (Ventolin Hfa) Aer 02/24/10 [Zoloft] No Conflict Check 02/24/10 [Depakote] No Conflict Check 02/24/10 Information Source: Patient Mode of Arrival: Wheelchair Past Medical History PAST MEDICAL HISTORY: Depression, DM, High Lipids, HTN, Kidney Stones, Schizo phrenia, Seizures, TIA, UTI'S Surgical History: Hysterectomy Family History Family History: No family hx of HTN Social History Smoker: Non-Smoker Alcohol: Denies ETOH Use Drugs: Denies Drug Use Lives In: Home Constitutional: denies: chills, diaphoresis, fatigue, fever, malaise, sweats, weakness, others EENTM: denies: blurred vision, double vision, ear bleeding, ear discharge, ear drainage, ear pain, ear ringing, eye pain, eye redness, hearing loss, mouth pain, mouth swelling, nasal discharge, nose bleeding, nose congestion, nose pain, photophobia, tearing, throat pain, throat swelling, voice changes, others Respiratory: denies: cough, hemoptysis, orthopnea, SOB at rest, shortness of breath, SOB with excertion, stridor, wheezing, others Cardiovascular: denies: chest pain, dizzy spells, diaphoresis, Dyspnea on exertion, edema, irregular heart beat, left arm pain, lightheadedness, palpitations, PND, syncope, others Gastrointestinal: denies: abdomen distended, abdominal pain, blood streaked bowels, constipated, diarrhea, dysphagia, difficulty swallowing, hematemesis, melena, nausea, poor appetite, poor fluid intake, rectal bleeding, rectal pain, vomiting, others Genitourinary: denies: abnormal vagina bleeding, burning, dyspareunia, dysuria, flank pain, frequency, hematuria, incontinence, pain, , vagina discharge, urgency, others Neurological: denies: dizziness, fainting, headache, left sided numbness, left sided weakness, numbness, paresthesia, pre-existing deficit, right sided numbness, right sided weakness, seizure, speech problems, tingling, tremors, weakness, others Musculoskeletal: reports: others (As stated in HPI) Integumetry: denies: bruises, change in color, change in hair/nails, dryness, laceration, lesions, lumps, rash, wounds, others Allergic/Immunocompromised: denies: Difficulty Healing, Frequent Infections, Hives, Itching, others Hematologic/Lymphatic: denies: anemia, blood clots, easy bleeding, easy bruising, swollen glands, others Endocrine: denies: excessive hunger, excessive sweating, excessive thirst, excessive urination, flushing, intolerance to cold, intolerance to heat, unexplained weight gain, unexplained weight loss, others Psychiatric: denies: anxiety, bipolar disorder, depression, hopeless, panic disorder, schizophrenia, sleepless, suicidal, others Physical Exam General Appearance: No Apparent Distress, Obese HEENT: PERRL/EOMI Neck: Full Range of Motion, Non-Tender, Normal Respiratory: Chest Non-Tender, Lungs Clear, No Accessory Muscle Use, No Respiratory Distress, Normal Breath Sounds Cardiovascular: No Murmur, No Gallop, Regular Rate/Rhythm Breast Exam: Deferred Gastrointestinal: NOT DONE Genitalia: Deferred Pelvic: Deferred Rectal: Deferred Extremities: No calf tenderness, Normal capillary refill, Normal range of motion Musculoskeletal : Extremity Location: Knee (TTP to right anterior knee noted. No skin changes noted. Positive anterior drawer test right knee. Negative Angella's test right knee. No other TTP to right lower extremity noted. Gait slow due to pain localized to right anterior knee. Pulses intact) Neurologic: Alert, No Motor Deficits, Normal Affect, Normal Mood, No Sensory Deficits Cerebellar Function: Normal Reflexes: Normal Skin: Dry, Normal Color, Warm Peripheral Pulses: 2+ dorsalis pedis (R), 2+ dorsalis pedis (L), 2+ Radial (R), 2+ Radial (L), 2+ Brachial (R), 2+ Brachial (L) Lymphatic: No Adenopathy Was a procedure done? Was a procedure done?: No Sedation Sedation?: No Differential Diagnosis EXT Differential Diagnosis: Deep Vein Thrombosis, Fracture, Dislocation, Neurovascular injury X-Ray, Labs, Meds, VS Vital Signs Date Time Temp Pulse Resp B/P (MAP) Pulse Ox O2 Delivery O2 Flow Rate FiO2 04/18/25 20:16 63 20 96 Room Air 04/18/25 20:16 98.3 70 20 127/79 (95) 96 98.3 04/18/25 17:29 98.1 69 18 124/66 97 98.1 PATIENT: BRANDON STERLING JACCT: [id number]: [id number] : 1980 LOC: ER ROOM / BED: / AGE / SEX: 44 / F ADM STATUS: REG ER SERVICE [id number] ORDERING PHYSICIAN: AGUSTIN VELA PROCEDURE(s): RKN3 - R KNEE 3V XRAY REASON: right knee pain ORDER NUMBER(s): [id number], ACCESSION NUMBER(s): [id number] CLINICAL INDICATION: right knee pain TECHNIQUE: XY R KNEE 3V XRAY Comparison: XR KNEE LIMITED RT on DOS: 09/24/24, XR KNEE COMPLETE LT on DOS: 02/20/24, XR KNEE COMPLETE RT on DOS: 09/30/22 FINDINGS/IMPRESSION: There is no evidence of acute fracture or dislocation. Soft tissues are unremarkable. ATED BY: GORGE CORADO MD DICTATED DATE/TIME: 04/18/251942 SIGNED BY: GORGE CORADO MD SIGNED DATE/TIME: 04/18/251942 CC: Right knee x-ray reviewed Caneadea 10/325 mg p.o. ordered Patient neurovascularly intact and reported improvement in symptoms prior to discharge Advised on elevation and alternate ice on/off as needed for pain Advised to follow up with PCP and orthopedics in 1-2 days Patient verbalized understanding and agreeable with current plan of care Advised to return to ER immediately if symptoms worsen Images Reviewed?: Images reviewed and evaluated by me Time of 1ST Reevaluation: 20:02 Reevaluation 1ST: N/A Patient Education/Counseling: Diagnosis, Treatment, Prognosis, Need For Follow Up Family Education/Counseling: No Family Present Departure 1 Departure Time of Disposition: 20:22 Impression: Primary Impression: Right knee sprain Qualified Codes: S83.91XA - Sprain of unspecified site of right knee, initial encounter Disposition: HOME / SELF CARE / HOMELESS Condition: Stable Discharged With: Friend Critical Care Note Critical Care Time?: No Stability Stability form required: No Heart Score Heart Score: Heart Score Response (Comments) Value History N/A 0 EKG N/A 0 Age N/A 0 Risk Factors N/A 0 Troponin N/A 0 Total 0 AGUSTIN VELA Apr 18, 2025 20:22
[2025-04-18] MEDS: HYDROcodone-ACET 10/325MG TAB PO ONE (20:26)
== END 2025-04-18 20:48 | disposition home or self-care (01) ==
LOC: ER 17:24
DX: S83.91XA Sprain of unspecified site of right knee, initial encounter (principal); X58.XXXA Exposure to other specified factors, initial encounter; Y93.89 Activity, other specified; Y92.89 Other specified places as the place of occurrence of the external cause; Y99.8 Other external cause status
CPT/HCPCS: 29505; 73562

== ENCOUNTER 2025-04-20 12:30 | Inpatient (IN) | payer MEDICAID ==
[~2025-04-20] VITALS: Ht 165.1 cm; Wt 133.8 kg
--- NOTE | 2025-04-20 12:48 | ED.PDOC ---
SOB-HPI HPI Comments 44 y/o F, BIBA, with PMHx of schizophrenia, kidney HTN, HLD, DM, CVA, TIA's, CHF, and COPD presents to the ED for CC of shortness of breath. 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 Patient reports, to have experienced similar symptoms in the past with most recent episode being [id number] prior. Patient denies any recent flu-like symptoms, dizziness, headache, numbness, or weakness. No other symptoms or modifying factors are present at this time. Chief Complaint: Shortness of Breath Time Seen by MD: 12:50 Primary Care Provider: JACE Jarvis notes: Nurses Notes, Straight Cutter Notes, Medications, Allergies Information Source: Patient, Emergency Med Personnel Mode of Arrival: EMS Severity: Moderate History of: COPD Prehospital treatment: None Modifying Factors: Nothing Radiation: Arm (L) Location: Chest (L) Past Medical History PAST MEDICAL HISTORY: CHF, COPD, Depression, DM, High Lipids, HTN, Kidney Stones, Schizophrenia, Seizures, TIA, UTI'S Surgical History: Hysterectomy Family History Family History: No family hx of HTN Social History Smoker: Non-Smoker Alcohol: Denies ETOH Use Drugs: Denies Drug Use Lives In: Home Constitutional: denies: chills, diaphoresis, fatigue, fever, malaise, sweats, weakness, others EENTM: denies: blurred vision, double vision, ear bleeding, ear discharge, ear drainage, ear pain, ear ringing, eye pain, eye redness, hearing loss, mouth pain, mouth swelling, nasal discharge, nose bleeding, nose congestion, nose pain, photophobia, tearing, throat pain, throat swelling, voice changes, others Respiratory: reports: shortness of breath; denies: cough, hemoptysis, orthopnea, SOB at rest, SOB with excertion, stridor, wheezing, others Cardiovascular: denies: chest pain, dizzy spells, diaphoresis, Dyspnea on exertion, edema, irregular heart beat, left arm pain, lightheadedness, palpitations, PND, syncope, others Gastrointestinal: denies: abdomen distended, abdominal pain, blood streaked bowels, constipated, diarrhea, dysphagia, difficulty swallowing, hematemesis, melena, nausea, poor appetite, poor fluid intake, rectal bleeding, rectal pain, vomiting, others Genitourinary: denies: abnormal vagina bleeding, burning, dyspareunia, dysuria, flank pain, frequency, hematuria, incontinence, pain, , vagina discharge, urgency, others Neurological: denies: dizziness, fainting, headache, left sided numbness, left sided weakness, numbness, paresthesia, pre-existing deficit, right sided numbness, right sided weakness, seizure, speech problems, tingling, tremors, weakness, others Musculoskeletal: denies: back pain, gout, joint pain, joint swelling, muscle pain, muscle stiffness, neck pain, others Integumetry: denies: bruises, change in color, change in hair/nails, dryness, laceration, lesions, lumps, rash, wounds, others Allergic/Immunocompromised: denies: Difficulty Healing, Frequent Infections, Hives, Itching, others Hematologic/Lymphatic: denies: anemia, blood clots, easy bleeding, easy bruising, swollen glands, others Endocrine: denies: excessive hunger, excessive sweating, excessive thirst, excessive urination, flushing, intolerance to cold, intolerance to heat, unexplained weight gain, unexplained weight loss, others Psychiatric: denies: anxiety, bipolar disorder, depression, hopeless, panic disorder, schizophrenia, sleepless, suicidal, others All Other Systems: Reviewed and Negative Physical Exam General Appearance: No Apparent Distress, Normal HEENT: Normal ENT Inspection, Pharynx Normal Neck: Full Range of Motion, Non-Tender, Normal, Normal Inspection Respiratory: Chest Non-Tender, Lungs Clear, No Accessory Muscle Use, No Respiratory Distress, Normal Breath Sounds Cardiovascular: No Edema, No Murmur, No Gallop, Normal Peripheral Pulses, Regular Rate/Rhythm Breast Exam: Deferred Gastrointestinal: No Organomegaly, Non Tender, No Pulsatile Mass, Normal Bowel Sounds, Soft Genitalia: Deferred Pelvic: Deferred Rectal: Deferred Extremities: No calf tenderness, Normal capillary refill, Normal inspection, Normal range of motion, Non-tender, No pedal edema Musculoskeletal : Apperance: Normal Neurologic: Alert, placement director II-XII nml as Tested, No Motor Deficits, Normal Affect, Normal Mood, No Sensory Deficits Cerebellar Function: Normal Reflexes: Normal Skin: Dry, Normal Color, Warm Lymphatic: No Adenopathy Was a procedure done? Was a procedure done?: No Differential Dx Differential Diagnosis: Anxiety, Bronchitis, CHF, Hyperventilation, Myocardial infarction, Panic Attack, Pneumonia, Pneumothorax, Pulmonary Embolism, Respiratory Distress, Sinusitis, Pharyngitis, URI X-Ray, Labs, Meds, VS Vital Signs Date Time Temp Pulse Resp B/P (MAP) Pulse Ox O2 Delivery O2 Flow Rate FiO2 04/20/25 14:41 76 14 98 Nasal Cannula* 2 28 04/20/25 14:40 68 13 121/67 (85) 97 04/20/25 12:49 97.8 69 17 140/63 (88) 98 97.8 04/20/25 12:45 96 Nasal Cannula* 2 28 04/20/25 12:35 98.1 64 18 113/82 99 98.1 04/20/25 12:33 68 Lab Test 04/20/25 14:00 04/20/25 13:03 Range/Units Troponin I High Sensitivity < 3 L < 3 L </=34 ng/L White Blood Count 9.2 4.4-10.8 10^3/uL Red Blood Count 4.26 4.0-5.20 10^6/uL Hemoglobin 12.7 12.2-16.2 g/dL Hematocrit 38.8 36.0-46.0 % Mean Corpuscular Volume 91.0 80.0-100.0 fL Mean Corpuscular Hemoglobin 29.7 28.0-32.0 pg Mean Corpuscular Hemoglobin Concent 32.6 32.0-36.0 g/dL Red Cell Distribution Width 14.0 11.8-14.3 % Platelet Count 295 140-450 10^3/uL Mean Platelet Volume 7.6 6.9-10.8 fL Neutrophils (%) (Auto) 58.2 37.0-80.0 % Lymphocytes (%) (Auto) 28.5 10.0-50.0 % Monocytes (%) (Auto) 9.0 0.0-12.0 % Eosinophils (%) (Auto) 3.7 0.0-7.0 % Basophils (%) (Auto) 0.6 0.0-2.0 % Neutrophils # (Auto) 5.4 1.6-8.6 10 ^3/uL Lymphocytes # (Auto) 2.6 0.4-5.4 10 ^3/uL Monocytes # (Auto) 0.8 0-1.3 10 ^3/uL Eosinophils # (Auto) 0.3 0-0.8 10 ^3/uL Basophils # (Auto) 0.1 0-0.2 10 ^3/uL Nucleated Red Blood Cells 0.1 % Sodium Level 146 H 136-145 mmol/L Potassium Level 3.8 3.5-5.1 mmol/L Chloride Level 110 H 98-107 mmol/L Carbon Dioxide Level 24 20-31 mmol/L Anion Gap 12 5-15 Blood Urea Nitrogen 14 9-23 mg/dL Creatinine 0.83 0.550-1.02 mg/dL Glomerular Filtration Rate Calc 89 >90 mL/min BUN/Creatinine Ratio 16.9 10.0-20.0 Serum Glucose 94 74-106 mg/dL Calcium Level 9.4 8.7-10.4 mg/dL Current Medications Medications (Trade) Dose Ordered Sig/Ponce Route Start Time Stop Time Status Last Admin Aspirin 162 mg ONCE ONCE PO 04/20/25 13:00 04/20/25 13:01 DC 04/20/25 13:19 [place] [id number] Ph: [phone] DIAGNOSTIC IMAGING Diagnostic Imaging Report : [id number] Signed PATIENT: BRANDON STERLING ACCT: [id number] UNIT: [id number] : 1980 LOC: ER ROOM / BED: / AGE / SEX: 44 / F ADM STATUS: REG ER SERVICE 1251 ORDERING PHYSICIAN: NENA CAMARGO MD PROCEDURE(s): CXR1 - CHEST XRAY 1 VIEW REASON: cp ORDER NUMBER(s): [id number], ACCESSION NUMBER(s): [id number] CHEST RADIOGRAPH Indication: cp Technique: Single frontal view of the chest was obtained Comparison: XY CHEST XRAY 1 VIEW on DOS: 04/16/25, XR CHEST 1 VIEW on DOS: 04/10/25, XR CHEST 1 VIEW on DOS: 03/27/25 FINDINGS: Lines and Tubes: None Lungs: No focal consolidation. Pleura: No effusion. No pneumothorax. Cardiomediastinal contours: Unremarkable Bones: No acute osseous abnormality. IMPRESSION: 1. No acute cardiopulmonary disease. 2. No significant change from 01/23/2025. ATED BY: MADDY NAJERA Jr., DO DICTATED DATE/TIME: 04/20/251324 SIGNED BY: MADDY NAJERA Jr., SIGNED DATE/TIME: 04/20/251324 CC: Time of 1ST Reevaluation: 13:20 Reevaluation 1ST: Unchanged Time of 2ND Reevaluation: 16:03 Reevaluation 2ND: Improved Patient Education/Counseling: Diagnosis, Treatment, Prognosis, Need For Follow Up Family Education/Counseling: No Family Present Comments This is a patient who has a heart score of four. With personal history of coronary artery disease and TIAs. Her cardiac workup is negative however patient reports her symptoms are increasing in frequency. Patient has been chest pain-free for some time and now is the 1st time in a month. She will be admitted for further cardiac workups due to concerns for patient's condition deteriorating, the care required my highest level of attention and readiness to intervene. i assessed the patient's condition, ordered the proper tests and treatments, reassessed for response and reviewed the results. i communicated with medical personnel and formulated a plan of care. total critical care time does not include any procedures Additional Information Reviewed patient's previous visit(s): 10/26/24 DX:Seizures, 10/24/24 DX:Seizures The following tests were ordered, and results were reviewed by me: CXR, TROPONIN X3, CBC, CMP Additional information was gathered from interviewing the following independent historian: EMS I reviewed and agreed with the following test results read by other provider: CXR I discussed treatments and results with medical personnel and: PATIENT Comprehensive systems review obtained and negative except for what is stated in the HPI. SEPSIS Sepsis Screen Physician Orders Electrocardigram (04/20/25 12:39) Chest Xray 1 View (04/20/25 12:51) Vital Signs Date Time Temp Pulse Resp B/P (MAP) Pulse Ox O2 Delivery O2 Flow Rate FiO2 04/20/25 14:41 76 14 98 Nasal Cannula* 2 28 04/20/25 14:40 68 13 121/67 (85) 97 04/20/25 12:49 97.8 69 17 140/63 (88) 98 97.8 04/20/25 12:45 96 Nasal Cannula* 2 28 04/20/25 12:35 98.1 64 18 113/82 99 98.1 04/20/25 12:33 68 Laboratory Tests Test 04/20/25 13:03 White Blood Count 9.2 10^3/uL (4.4-10.8) Medications Medications Dose Ordered Sig/Ponce Route Start Time Stop Time Status Last Admin Dose Admin Aspirin 162 mg ONCE ONCE PO 04/20/25 13:00 04/20/25 13:01 DC 04/20/25 13:19 Departure 1 Departure Time of Disposition: 16:05 Impression: Primary Impression: Unstable angina Disposition: ADMITTED INPATIENT Admit to: Tele Condition: Stable Discharged With: Self Critical Care Note Critical Care Time?: Yes (55 min-critical care time only) Critical care comment: due to concerns for patient's condition deteriorating, the care required my highest level of attention and readiness to intervene. i assessed the patient's condition, ordered the proper tests and treatments, reassessed for response and reviewed the results. i communicated with medical personnel and formulated a plan of care. total critical care time does not include any procedures Stability Stability form required: No Heart Score Heart Score: Heart Score Response (Comments) Value History Moderate Suspicious 1 EKG N/A 0 Age <45 0 Risk Factors 1 or 2 risk factors 1 Troponin N/A 0 Total 2 I personally scribed for NENA CAMARGO MD ([employer]) on 04/20/25 at 12:48. Electronically submitted by Guerline Mejia ([email or web address]). I personally scribed for NENA CAMARGO MD ([email or web address]) on 04/20/25 at 12:58. Electronically submitted by Guerline Mejia ([email or web address]). I personally scribed for NENA CAMARGO MD ([employer]) on 04/20/25 at 13:30. Electronically submitted by Guerline Mejia ([email or web address]). NENA CAMARGO MD Apr 20, 2025 12:48
[2025-04-20 13:15] LABS: Hematocrit 38.8 % (36.0-46.0); Hemoglobin 12.7 g/dL (12.2-16.2); Mean Corpuscular Hemoglobin 29.7 pg (28.0-32.0); Mean Corpuscular Volume 91.0 fL (80.0-100.0); Nucleated Red Blood Cells % 0.1 %
[2025-04-20 13:23] LABS: Potassium 3.8 mmol/L (3.5-5.1)
[2025-04-20 13:24] LABS: Anion Gap 12 (5-15); Calcium 9.4 mg/dL (8.7-10.4); Carbon Dioxide 24 mmol/L (20-31)
[2025-04-20 13:26] LABS: Chloride 110 mmol/L (98-107); Sodium 146 mmol/L (136-145)
--- NOTE | 2025-04-20 13:28 | DVH ---
CHEST RADIOGRAPH Indication: cp Technique: Single frontal view of the chest was obtained Comparison: XY CHEST XRAY 1 VIEW on DOS: 04/16/25, XR CHEST 1 VIEW on DOS: 04/10/25, XR CHEST 1 VIEW on DOS: 03/27/25 FINDINGS: Lines and Tubes: None Lungs: No focal consolidation. Pleura: No effusion. No pneumothorax. Cardiomediastinal contours: Unremarkable Bones: No acute osseous abnormality. IMPRESSION: 1. No acute cardiopulmonary disease. 2. No significant change from 01/23/2025.
[2025-04-20 13:29] LABS: BUN/Creatinine Ratio 16.9 (10.0-20.0); Blood Urea Nitrogen 14 mg/dL (9-23); Glucose 94 mg/dL (74-106)
[2025-04-20 14:41] VITALS: PULSE 76; RESP 14; O2SAT 98
[2025-04-20] MEDS ORDERED: FUROSEMIDE 20 MG/2 ML VIAL IV SCH (18:30)
[2025-04-20 19:00] VITALS: BP 121/67; PULSE 76; RESP 14; TEMP 97.8; O2SAT 98
--- NOTE | 2025-04-20 19:04 | DVH ---
CLINICAL HISTORY: Bilateral leg swelling, chest pain, shortness of breath TECHNIQUE: Color and duplex doppler imagine of the bilateral lower extremity veins was performed. Ves deepak compression and augmentation if possible was also performed. COMPARISON: CV VENOUS DOPPLER LOW EXT LT on DOS: 02/20/24 FINDINGS: Right Lower Extremity: Right common femoral vein: Normal compressibility and flow. Right superficial femoral vein: Normal compressibility and flow. Right popliteal vein: Normal compressibility and flow. Proximal calf veins demonstrate flow. Left Lower Extremity: Left common femoral vein: Normal compressibility and flow. Left superficial femoral vein: Normal compressibility and flow. Left popliteal vein: Normal compressibility and flow. Proximal calf veins demonstrate flow. IMPRESSION: NO SONOGRAPHIC EVIDENCE FOR DEEP VENOUS THROMBOSIS IN THE BILATERAL LOWER EXTREMITY VEINS.
[2025-04-20] MEDS ORDERED: ACETAMINOPHEN 325 MG TAB PO PRN (19:15)
[2025-04-20] MEDS ORDERED: IPRATROPIUM BROM 0.5 MG/2.5ML INH SOL NEB PRN (19:30)
[2025-04-20] MEDS ORDERED: ALBUTEROL SULF 2.5 MG/0.5ML(0.5%) NEB SOLN NEB PRN (19:30)
[2025-04-20] MEDS: MORPHINE SULFATE 4 MG/ML SYR/VIAL IV PRN (19:45)
[2025-04-20] MEDS: PANTOPRAZOLE 40 MG TAB PO SCH (19:45)
--- NOTE | 2025-04-20 19:45 | DVH ---
CLINICAL HISTORY: left shoulder pain, fall TECHNIQUE: 3 views of the left shoulder were obtained. COMPARISON: XR HUMERUS RT on DOS: 06/05/24, XR ELBOW COMPLETE LT on DOS: 03/14/23, XR ELBOW COMPLETE R T on DOS: 03/12/23 FINDINGS: No acute fracture or dislocation is seen. No soft tissue abnormality is evident. There are no signifi cant degenerative changes. IMPRESSION: NO ACUTE RADIOGRAPHIC ABNORMALITY OF THE LEFT SHOULDER.
[2025-04-20] MEDS: ENOXAPARIN SOD 40 MG/0.4 ML SYRINGE SC SCH (19:46)
[2025-04-20 20:14] VITALS: PULSE 76; RESP 16; O2SAT 97
--- NOTE | 2025-04-20 20:18 | DVHHP2 ---
History of Present Illness History of Present Illness Patient is 44 years old female with past medical history of hypertension, diabetes mellitus type 2, hyperlipidemia, CVA, TIA, CHF, COPD on home oxygen [place] O2 2 L/min, obstructive sleep apnea on BiPAP, history of bipolar disorder, schizophrenia, depression,h/o kidney stone came with a complaint of chest pain. Patient reported she started having chest pain around 11 3:00 p.m. in the morning while she was watching TV, pain was sudden onset, sharp, central, radiating to the left arm, 6/10, no aggravating or relieving factor. Pain was associated with nausea and shortness of breaths. Patient reported having chronic cough without any sputum. Patient denied any fever, diarrhea, acute joint redness, dysarthria or change in vision. Initial lab workup revealed troponin with a normal limit chest x-ray prominent vascular margin, sodium 146. PMH-hypertension, diabetes mellitus type 2, hyperlipidemia, CVA, TIA, CHF, COPD on home oxygen [place] O2 2 L/min, obstructive sleep apnea on BiPAP, history of bipolar disorder, schizophrenia, depression,h/o kidney stone PSH- hysterectomy Allergy- celecoxib, nitroglycerin Personal History/ Social History- ex-smoker, quit 5 years before, denies alco holism or substance abuse, lives with boyfriend at home ROS Gastrointestinal- denies any rectal bleeding, nausea or vomiting Musculoskeletal-denies acute joint swelling or tenderness or redness Neurological- denies acute dysarthria, dysphagia, change in vision Psychiatry- denies depression or SI or HI Skin- denies acute rash or purpura Review of Systems Allergies: Coded Allergies: Celecoxib (Verified Allergy, Unknown, 01/25/25) Nitroglycerin (Verified Allergy, Unknown, 04/18/25) Medications Current Medications Medications Dose Ordered Sig/Ponce Route Start Time Stop Time Status Last Admin Dose Admin Sodium Chloride 10 ml Q8HR IV 04/20/25 22:00 Enoxaparin Sodium 40 mg DAILY SC 04/20/25 18:30 04/20/25 19:46 40 MG Clopidogrel Bisulfate 75 mg DAILY PO 04/21/25 10:00 Risperidone 1 mg BID PO 04/20/25 22:00 Topiramate 100 mg BID PO 04/20/25 22:00 Atorvastatin Calcium 80 mg HS PO 04/20/25 22:00 Citalopram Hydrobromide 40 mg DAILY PO 10/8/25 10:00 Morphine Sulfate 2 mg Q4HPRN PRN IV 04/20/25 19:15 04/20/25 19:45 2 MG Acetaminophen 650 mg Q6HP PRN PO 04/20/25 19:15 Pantoprazole Sodium 40 mg DAILY@0600 PO 04/20/25 19:15 04/20/25 19:45 40 MG Lamotrigine 150 mg Q12HR PO 04/20/25 22:00 Furosemide 20 mg DAILY PO 04/21/25 10:00 Albuterol 2.5 mg Q6HPRN PRN NEB 04/20/25 19:30 Ipratropium [place] 0.5 mg Q6HPRN PRN NEB 04/20/25 19:30 Levetiracetam 750 mg BID PO 04/20/25 22:00 UNV Exam Vital Signs Vital Signs Date Time Temp Pulse Resp B/P (MAP) Pulse Ox O2 Delivery O2 Flow Rate FiO2 04/20/25 19:45 87 18 142/84 04/20/25 19:00 97.8 98 2.0 28 97.8 04/20/25 14:41 Nasal Cannula* Exam General examination- , awake, alert, oriented HEENT- PEERLA, no acute nasal discharge Cardiovascular- chest wall tenderness positive, S1-S2 audible, rate and rhythm regular, no murmur Respiratory- no wheezing Gastrointestinal-nontender, bowel sound+. Nondistended Musculoskeletal-no acute joint swelling or tenderness or redness Lower extremity- bilateral leg edema++ Neurological- cranial nerves intact, no acute dysarthria or dysphagia Psychiatry- denies depression or SI or HI Skin- no acute rash or purpura Labs/Xrays Labs Test 04/20/25 19:09 04/20/25 13:03 Range/Units D-Dimer, Quantitative 0.48 0.0-0.49 mg/L FEU Troponin I High Sensitivity 3 L </=34 ng/L White Blood Count 9.2 4.4-10.8 10^3/uL Red Blood Count 4.26 4.0-5.20 10^6/uL Hemoglobin 12.7 12.2-16.2 g/dL Hematocrit 38.8 36.0-46.0 % Mean Corpuscular Volume 91.0 80.0-100.0 fL Mean Corpuscular Hemoglobin 29.7 28.0-32.0 pg Mean Corpuscular Hemoglobin Concent 32.6 32.0-36.0 g/dL Red Cell Distribution Width 14.0 11.8-14.3 % Platelet Count 295 140-450 10^3/uL Mean Platelet Volume 7.6 6.9-10.8 fL Neutrophils (%) (Auto) 58.2 37.0-80.0 % Lymphocytes (%) (Auto) 28.5 10.0-50.0 % Monocytes (%) (Auto) 9.0 0.0-12.0 % Eosinophils (%) (Auto) 3.7 0.0-7.0 % Basophils (%) (Auto) 0.6 0.0-2.0 % Neutrophils # (Auto) 5.4 1.6-8.6 10 ^3/uL Lymphocytes # (Auto) 2.6 0.4-5.4 10 ^3/uL Monocytes # (Auto) 0.8 0-1.3 10 ^3/uL Eosinophils # (Auto) 0.3 0-0.8 10 ^3/uL Basophils # (Auto) 0.1 0-0.2 10 ^3/uL Nucleated Red Blood Cells 0.1 % Sodium Level 146 H 136-145 mmol/L Potassium Level 3.8 3.5-5.1 mmol/L Chloride Level 110 H 98-107 mmol/L Carbon Dioxide Level 24 20-31 mmol/L Anion Gap 12 5-15 Blood Urea Nitrogen 14 9-23 mg/dL Creatinine 0.83 0.550-1.02 mg/dL Glomerular Filtration Rate Calc 89 >90 mL/min BUN/Creatinine Ratio 16.9 10.0-20.0 Serum Glucose 94 74-106 mg/dL Calcium Level 9.4 8.7-10.4 mg/dL Magnesium Level 1.9 1.6-2.6 mg/dL B-Type Natriuretic Peptide 21.86 0-100 pg/mL Thyroid Stimulating Hormone (TSH) 2.20 0.55-4.78 uIU/mL SEPSIS Sepsis Screen Date sepsis recognized/suspect: Apr 20, 2025 Time Sepsis recognized/suspect: 1914 Recent Procedure: No On Antibiotic Therapy: No Respiratory Rate >20: No Heart Rate >90: No Temp<36 C (96.8 F) or >38.3 C: No SBP <90 or MAP <65 mmHG: No New Acute Mental Status Change: No Is the patient on CPAP, BIPAP,: No Physician Orders Electrocardigram (04/20/25 12:39) Chest Xray 1 View (04/20/25 12:51) Admit (04/20/25 18:16) Code Status (04/20/25 18:16) Sodium Chloride Lock (Saline Lock Ns) (04/20/25 22:00) Complete Blood Count (04/21/25 04:00) Comprehensive Metabolic Panel (04/21/25 04:00) Cardiac Diet-2gna,Lofat,Lochol (04/20/25 Dinner) Echo 2d Mode Cardiac Dop (04/20/25 18:16) Oxygen By Nasal Cannula (04/20/25 18:16) Stat Ekg For Chest Pain (04/20/25 18:16) Notify Md Of Changes From Base (04/20/25 18:16) Real Estate Sales Manager For 24 Hours (04/20/25 18:16) BIPAP (04/20/25 18:19) Bilat Lower Dvt (04/20/25 18:19) Enoxaparin Sodium (Lovenox) (04/20/25 18:30) Clopidogrel Bisulfate (Plavix) (04/21/25 10:00) Risperidone Tablet (Risperdal Tablet) (04/20/25 22:00) Topiramate (Topamax) (04/20/25 22:00) Citalopram Tablet (Celexa Tablet) (04/21/25 10:00) Atorvastatin (Lipitor) (04/20/25 22:00) L Shoulder 2+ View Xray (04/20/25 19:14) Morphine Sulfate Injection (04/20/25 19:15) Acetaminophen Tablet (Tylenol Tablet) (04/20/25 19:15) Pantoprazole Tablet (Protonix Tablet) (04/20/25 19:15) Lamotrigine Tablet (Lamictal Tablet) (04/20/25 22:00) Furosemide Tablet (Lasix Tablet) (04/21/25 10:00) Albuterol Medneb (Ventolin Medneb) (04/20/25 19:30) Ipratropium Medneb (Atrovent Medneb) (04/20/25 19:30) Levetiracetam Tablet (Keppra Tablet) (04/20/25 22:00) Levetiracetam (Keppra) (04/20/25 20:05) Lamotrigine (Lamictal) (04/20/25 20:05) Topiramate (Topamax) (04/20/25 20:05) Vital Signs Date Time Temp Pulse Resp B/P (MAP) Pulse Ox O2 Delivery O2 Flow Rate FiO2 04/20/25 19:45 87 18 142/84 04/20/25 19:00 97.8 76 14 121/67 98 2.0 28 97.8 04/20/25 18:00 64 23 134/69 (90) 97 04/20/25 16:00 64 13 129/80 (96) 98 04/20/25 14:41 76 14 98 Nasal Cannula* 2 28 04/20/25 14:40 68 13 121/67 (85) 97 04/20/25 12:49 97.8 69 17 140/63 (88) 98 97.8 04/20/25 12:45 96 Nasal Cannula* 2 28 04/20/25 12:35 98.1 64 18 113/82 99 98.1 04/20/25 12:33 68 Laboratory Tests Test 04/20/25 13:03 White Blood Count 9.2 10^3/uL (4.4-10.8) Medications Medications Dose Ordered Sig/Ponce Route Start Time Stop Time Status Last Admin Dose Admin Aspirin 162 mg ONCE ONCE PO 04/20/25 13:00 04/20/25 13:01 DC 04/20/25 13:19 162 MG Enoxaparin Sodium 40 mg DAILY SC 04/20/25 18:30 04/20/25 19:46 40 MG Morphine Sulfate 2 mg Q4HPRN PRN IV 04/20/25 19:15 04/20/25 19:45 2 MG Pantoprazole Sodium 40 mg DAILY@0600 PO 04/20/25 19:15 04/20/25 19:45 40 MG Assessment/Plan Assessment/Plan Assessment and plan # acute chest pain, rule out acute coronary syndrome # unstable angina -troponin I with in normal limit so far -EKG no acute ST or T-wave changes -continue clopidogrel 75 mg p.o. daily -atorvastatin 80 mg p.o. daily - # COPD on [place] O2 2 L/min at home, no acute exacerbation # history of sleep apnea, use BiPAP at home at night -ordered nebulization -ordered BiPAP at night at home sitting # hypertension # hyperlipidemia -continue Lasix 20 mg p.o. daily # diabetes mellitus type 2 -monitor blood sugar level # seizure disorder -resumed home medication Keppra, lamotrigine and topiramate # history of ischemic stroke, TIA -continue clopidogrel and atorvastatin as prescribed # history of heart failure -resume home medication Lasix # schizophrenia, depression, bipolar disorder -resumed home medication Zoloft, citalopram Goals of care, Code status full code ; discussed with >15 minutes PUD prophylaxis: Pantoprazole DVT prophylaxis: Lovenox Plan discussed with Dr. Sandoval , nursing staff, Total time spent on patient evaluation, chart review, assessment and plan, discussion discussion >35 minutes Plan discussed with: Patient, Other (RN) My Orders Orders - NICKO CASTRO RESIDENT Procedure Category Date Status Time Admit ADMIT 04/20/25 Transmitted 18:16 Code Status CODE 04/20/25 Transmitted 18:16 Sodium Chloride Lock PHA 04/20/25 In Process (Saline Lock Ns) 22:00 Complete Blood Count LAB 04/21/25 Verified 04:00 Comprehensive LAB 04/21/25 Verified Metabolic Panel 04:00 Cardiac DIET 04/20/25 Transmitted Diet-2gna,Lofat,Lochol Dinner Echo 2d Mode Cardiac US 04/20/25 Logged DOP 18:16 Oxygen By Nasal RT 04/20/25 Transmitted Cannula 18:16 Stat Ekg For Chest JESSICA 04/20/25 In Process Pain 18:16 Notify Of Changes JESSICA 04/20/25 In Process From Base 18:16 Real Estate Sales Manager For JESSICA 04/20/25 In Process 24 Hours 18:16 BIPAP RT 04/20/25 Logged 18:19 Bilat Lower Dvt US 04/20/25 Resulted 18:19 Enoxaparin Sodium PHA 04/20/25 In Process (Lovenox) 18:30 Clopidogrel Bisulfate PHA 04/21/25 In Process (Plavix) 10:00 Risperidone Tablet PHA 04/20/25 In Process (Risperdal Tablet) 22:00 Topiramate (Topamax) PHA 04/20/25 In Process 22:00 Citalopram Tablet PHA 04/21/25 In Process (Celexa Tablet) 10:00 Atorvastatin (Lipitor) PHA 04/20/25 In Process 22:00 L Shoulder 2+ View XY 04/20/25 Resulted Xray 19:14 Morphine Sulfate PHA 04/20/25 In Process Injection 19:15 Acetaminophen Tablet PHA 04/20/25 In Process (Tylenol Tablet) 19:15 Pantoprazole Tablet PHA 04/20/25 In Process (Protonix Tablet) 19:15 Lamotrigine Tablet PHA 04/20/25 In Process (Lamictal Tablet) 22:00 Furosemide Tablet PHA 04/21/25 In Process (Lasix Tablet) 10:00 Albuterol Medneb PHA 04/20/25 In Process (Ventolin Medneb) 19:30 Ipratropium Medneb PHA 04/20/25 In Process (Atrovent Medneb) 19:30 Levetiracetam Tablet PHA 04/20/25 Logged (Keppra Tablet) 22:00 Levetiracetam (Keppra) LAB 04/20/25 Verified 20:05 Lamotrigine (Lamictal) LAB 04/20/25 Verified 20:05 Topiramate (Topamax) LAB 04/20/25 Verified 20:05 Date of Service: Apr 20, 2025 Billing Provider: LEENA SANDOVAL MD Common Visit Codes: [id number] INP/OBS CARE (HIGH) Secondary Visit Codes: [id number] CARE PLAN 30 MINUTES NICKO CASTRO RESIDENT Apr 20, 2025 20:18
[2025-04-20 21:33] VITALS: BP 112/74; PULSE 71; RESP 18; TEMP 98.1; O2SAT 97
[2025-04-20] MEDS: SODIUM CHLOR 0.9% PF (SALINE LOCK) 10ML VIAL/SYR IV SCH (21:57)
[2025-04-20] MEDS: ATORVASTATIN 20 MG TAB PO SCH (21:58)
[2025-04-20] MEDS: lamoTRIgine 100 MG TAB PO SCH (21:59)
[2025-04-20] MEDS: levETIRAcetam 500 MG TAB PO SCH (22:01)
[2025-04-20] MEDS: risperiDONE 1 MG TAB PO SCH (22:02)
[2025-04-20] MEDS: TOPIRAMATE 100 MG TAB PO SCH (22:03)
[2025-04-20 22:45] VITALS: PULSE 71; O2SAT 96
[2025-04-21] VITALS (8 sets, daily range): BP systolic 116–123; BP diastolic 63–87; PULSE 66–81; RESP 18–19; TEMP 97.4–98.1; O2SAT 96–99
[2025-04-21 00:28] LABS: Opiate Scree,Urine Neg (NEGATIVE)
[2025-04-21 00:30] LABS: Amphetamine Screen, Urine Neg (NEGATIVE); Barbiturate Scree,Urine Neg (NEGATIVE); Benzodiazephine Screen, Urine Neg (NEGATIVE); Cannabinoid Screen, Urine Neg (NEGATIVE); Cocaine Screen, Urine Neg (NEGATIVE); Phencyclidine Screen, Urine Neg (NEGATIVE)
[2025-04-21 00:47] LABS: Urine Protein, UAD Negative (Negative)
[2025-04-21 06:45] LABS: Alanine Aminotransferase 39 U/L (7-40); Albumin 3.9 g/dL (3.2-4.8); Alkaline Phosphatase 70 U/L (46-116); Anion Gap 15 (5-15); BUN/Creatinine Ratio 16.2 (10.0-20.0); Blood Urea Nitrogen 12 mg/dL (9-23); Calcium 8.9 mg/dL (8.7-10.4); Carbon Dioxide 20 mmol/L (20-31); Glucose 96 mg/dL (74-106); Magnesium 1.9 mg/dL (1.6-2.6); Potassium 3.8 mmol/L (3.5-5.1); Sodium 143 mmol/L (136-145); Total Protein 6.2 g/dL (5.7-8.2)
[2025-04-21 06:46] LABS: Bilirubin, Total 0.3 mg/dL (0.2-1.0)
[2025-04-21 06:48] LABS: Hematocrit 39.0 % (36.0-46.0); Hemoglobin 12.8 g/dL (12.2-16.2); Mean Corpuscular Hemoglobin 30.1 pg (28.0-32.0); Mean Corpuscular Volume 91.8 fL (80.0-100.0); Nucleated Red Blood Cells % 0.1 %
[2025-04-21 06:53] LABS: Chloride 108 mmol/L (98-107)
[2025-04-21] MEDS ORDERED: SERTRALINE HCL 50 MG TAB PO SCH (10:00)
[2025-04-21] MEDS: KETOROLAC TROMETH 30 MG/ML 1ML VIAL IV ONE (12:33)
[2025-04-21] MEDS: CLOPIDOGREL BISULFATE 75 MG TAB PO SCH (12:34)
[2025-04-21] MEDS: CITALOPRAM HYDROBR 20 MG TAB PO SCH (12:35)
[2025-04-21] MEDS: FUROSEMIDE 20 MG TAB PO SCH (12:35)
--- NOTE | 2025-04-21 14:47 | DVHDSRES ---
Discharge Summary Date of Admission Resident Creating Document: NICKO CASTRO RESIDENT Apr 20, 2025 at 18:16 Date of Discharge: Apr 21, 2025 Admitting Diagnosis Suspected Unstable angina Labs/Diagnostic Data: Laboratory Results Test 04/21/25 05:04 04/20/25 23:40 04/20/25 19:09 04/20/25 13:03 White Blood Count 8.4 10^3/uL (4.4-10.8) Red Blood Count 4.24 10^6/uL (4.0-5.20) Hemoglobin 12.8 g/dL (12.2-16.2) Hematocrit 39.0 % (36.0-46.0) Mean Corpuscular Volume 91.8 fL (80.0-100.0) Mean Corpuscular Hemoglobin 30.1 pg (28.0-32.0) Mean Corpuscular Hemoglobin Concent 32.8 g/dL (32.0-36.0) Red Cell Distribution Width 14.3 % (11.8-14.3) Platelet Count 293 10^3/uL (140-450) Mean Platelet Volume 7.8 fL (6.9-10.8) Neutrophils (%) (Auto) 54.9 % (37.0-80.0) Lymphocytes (%) (Auto) 30.6 % (10.0-50.0) Monocytes (%) (Auto) 9.8 % (0.0-12.0) Eosinophils (%) (Auto) 3.9 % (0.0-7.0) Basophils (%) (Auto) 0.8 % (0.0-2.0) Neutrophils # (Auto) 4.6 10 ^3/uL (1.6-8.6) Lymphocytes # (Auto) 2.6 10 ^3/uL (0.4-5.4) Monocytes # (Auto) 0.8 10 ^3/uL (0-1.3) Eosinophils # (Auto) 0.3 10 ^3/uL (0-0.8) Basophils # (Auto) 0.1 10 ^3/uL (0-0.2) Nucleated Red Blood Cells 0.1 % Sodium Level 143 mmol/L (136-145) Potassium Level 3.8 mmol/L (3.5-5.1) Chloride Level 108 mmol/L (98-107) Carbon Dioxide Level 20 mmol/L (20-31) Anion Gap 15 (5-15) Blood Urea Nitrogen 12 mg/dL (9-23) Creatinine 0.74 mg/dL (0.550-1.02) Glomerular Filtration Rate Calc 102 mL/min (>90) BUN/Creatinine Ratio 16.2 (10.0-20.0) Serum Glucose 96 mg/dL (74-106) Calcium Level 8.9 mg/dL (8.7-10.4) Magnesium Level 1.9 mg/dL (1.6-2.6) Total Bilirubin 0.3 mg/dL (0.2-1.0) Aspartate Amino Transferase (AST) 32 U/L (13-40) Alanine Aminotransferase (ALT) 39 U/L (7-40) Alkaline Phosphatase 70 U/L (46-116) Total Protein 6.2 g/dL (5.7-8.2) Albumin 3.9 g/dL (3.2-4.8) Urine Color Light-yellow (Yellow) Urine Clarity Clear (Clear) Urine pH 6.5 (5.0-9.0) Urine Specific [place] 1.017 (1.001-1.035) Urine Protein Negative (Negative) Urine Ketones Negative (Negative) Urine Blood Negative /uL (Negative) Urine Nitrite Negative (Negative) Urine Bilirubin Negative (Negative) Urine Urobilinogen Normal mg/dL (Negative) Urine Leukocyte Esterase Negative /uL (Negative) Urine Glucose Normal mg/dL (Normal) Urine Opiates Screen Neg (NEGATIVE) Urine Fentanyl Screen Neg (NEGATIVE) Urine Barbiturates Screen Neg (NEGATIVE) Urine Phencyclidine Screen Neg (NEGATIVE) Urine Amphetamines Screen Neg (NEGATIVE) Urine Benzodiazepines Screen Neg (NEGATIVE) Urine Cocaine Screen Neg (NEGATIVE) Urine Cannabinoids Screen Neg (NEGATIVE) D-Dimer, Quantitative 0.48 mg/L FEU (0.0-0.49) Troponin I High Sensitivity 3 ng/L (</=34) B-Type Natriuretic Peptide 21.86 pg/mL (0-100) Thyroid Stimulating Hormone (TSH) 2.20 uIU/mL (0.55-4.78) Other Laboratory Tests 04/21/25 05:04 Brief Hx & Hospital Course: Patient is 44 years old female with past medical history of hypertension, diabetes mellitus type 2, hyperlipidemia, CVA, TIA, CHF, COPD on home oxygen [place] O2 2 L/min, obstructive sleep apnea on BiPAP, history of bipolar disorder, schizophrenia, depression,h/o kidney stone came with a complaint of chest pain. Patient reported she started having chest pain around 11 3:00 p.m. in the morning while she was watching TV, pain was sudden onset, sharp, central, radiating to the left arm, 6/10, no aggravating or relieving factor. Pain was associated with nausea and shortness of breaths. Patient reported having chronic cough without any sputum. Patient denied any fever, diarrhea, acute joint redness, dysarthria or change in vision. Initial lab workup revealed troponin with a normal limit chest x-ray prominent vascular margin, sodium 146, troponin I with a normal limit, BNP with a normal limit. X-ray left shoulder no acute fracture. Patient was treated conservatively, patient's pain improved with conservative management. Patient is being discharged home with the ibuprofen 600 mg q.6h PRN. Patient was advised to resume other home medications. Patient's meds were sent to the pharmacy electronically. Patient was hemodynamically stable on discharge. Patient is advised to follow up with the discharge clinic in 1 week and also to follow up with the primary care physician in 1-2 weeks. Operations or Procedures [place] [address] Ph: [phone] DIAGNOSTIC IMAGING Diagnostic Imaging Report : [id number] Signed PATIENT: BRANDON STERLING ACCT: [id number] UNIT: [id number] : 1980 LOC: ER ROOM / BED: / AGE / SEX: 44 / F ADM STATUS: REG ER SERVICE 1251 ORDERING PHYSICIAN: NENA CAMARGO MD PROCEDURE(s): CXR1 - CHEST XRAY 1 VIEW REASON: cp ORDER NUMBER(s): [id number], ACCESSION NUMBER(s): [id number] CHEST RADIOGRAPH Indication: cp Technique: Single frontal view of the chest was obtained Comparison: XY CHEST XRAY 1 VIEW on DOS: 04/16/25, XR CHEST 1 VIEW on DOS: 04/10/25, XR CHEST 1 VIEW on DOS: 03/27/25 FINDINGS: Lines and Tubes: None Lungs: No focal consolidation. Pleura: No effusion. No pneumothorax. Cardiomediastinal contours: Unremarkable Bones: No acute osseous abnormality. IMPRESSION: 1. No acute cardiopulmonary disease. 2. No significant change from 01/23/2025. ATED BY: MADDY NAJERA Jr., DO DICTATED DATE/TIME: 04/20/251324 SIGNED BY: MADDY NAJERA Jr., SIGNED DATE/TIME: 04/20/251324 CC: [place] [address] Ph: [phone] DIAGNOSTIC IMAGING Diagnostic Imaging Report : [id number] Signed PATIENT: BRANDON STERLING ACCT: [id number] UNIT: [id number] : 1980 LOC: OVERFLOW ROOM / BED: [address] [place] [address] AGE / SEX: 44 / F ADM STATUS: ADM IN SERVICE 18 ORDERING PHYSICIAN: NICKO CASTRO RESIDENT PROCEDURE(s): BLDVT - BiLat Lower DVT REASON: Bilateral leg swelling, chest pain, shortness of breath ORDER NUMBER(s): [id number], ACCESSION NUMBER(s): [id number] CLINICAL HISTORY: Bilateral leg swelling, chest pain, shortness of breath TECHNIQUE: Color and duplex doppler imagine of the bilateral lower extremity veins was performed. Vessel compression and augmentation if possible was also performed. COMPARISON: CV VENOUS DOPPLER LOW EXT LT on DOS: 02/20/24 FINDINGS: Right Lower Extremity: Right common femoral vein: Normal compressibility and flow. Right superficial femoral vein: Normal compressibility and flow. Right popliteal vein: Normal compressibility and flow. Proximal calf veins demonstrate flow. Left Lower Extremity: Left common femoral vein: Normal compressibility and flow. Left superficial femoral vein: Normal compressibility and flow. Left popliteal vein: Normal compressibility and flow. Proximal calf veins demonstrate flow. IMPRESSION: NO SONOGRAPHIC EVIDENCE FOR DEEP VENOUS THROMBOSIS IN THE BILATERAL LOWER EXTREMITY VEINS. ATED BY: TAYLER CORNELL MD DICTATED DATE/TIME: 04/20/251900 SIGNED BY: TAYLER CORNELL MD SIGNED DATE/TIME: 04/20/251900 CC: [facility] [id number] [place] [id number] Ph: [phone] DIAGNOSTIC IMAGING Diagnostic Imaging Report : [id number] Signed PATIENT: BRANDON STERLING ACCT: [id number] UNIT: [id number] : 1980 LOC: OVERFLOW ROOM / BED: [address] [place] [address] AGE / SEX: 44 / F ADM STATUS: ADM IN SERVICE 18 ORDERING PHYSICIAN: NICKO CASTRO RESIDENT PROCEDURE(s): BLDVT - BiLat Lower DVT REASON: Bilateral leg swelling, chest pain, shortness of breath ORDER NUMBER(s): [id number], ACCESSION NUMBER(s): [id number] CLINICAL HISTORY: Bilateral leg swelling, chest pain, shortness of breath TECHNIQUE: Color and duplex doppler imagine of the bilateral lower extremity veins was performed. Vessel compression and augmentation if possible was also performed. COMPARISON: CV VENOUS DOPPLER LOW EXT LT on DOS: 02/20/24 FINDINGS: Right Lower Extremity: Right common femoral vein: Normal compressibility and flow. Right superficial femoral vein: Normal compressibility and flow. Right popliteal vein: Normal compressibility and flow. Proximal calf veins demonstrate flow. Left Lower Extremity: Left common femoral vein: Normal compressibility and flow. Left superficial femoral vein: Normal compressibility and flow. Left popliteal vein: Normal compressibility and flow. Proximal calf veins demonstrate flow. IMPRESSION: NO SONOGRAPHIC EVIDENCE FOR DEEP VENOUS THROMBOSIS IN THE BILATERAL LOWER EXTREMITY VEINS. ATED BY: TAYLER CORNELL MD DICTATED DATE/TIME: 04/20/251900 SIGNED BY: TAYLER CORNELL MD SIGNED DATE/TIME: 04/20/251900 CC: Condition at Discharge: Stable Final Diagnosis/Problems List # acute chest pain, likely musculoskeletal/costochondritis # ruled out acute coronary syndrome # COPD on [place] O2 2 L/min at home, no acute exacerbation # history of sleep apnea, use BiPAP at home at night # history of fall 2 months 4, left shoulder pain, no fracture on x-ray # hypertension # hyperlipidemia # prediabetes # seizure disorder # history of ischemic stroke, TIA # history of heart failure # schizophrenia, depression, bipolar disorder -resumed home medication Zoloft, citalopram Discharge Disposition: Home Discharge Instruct/Medications Diet: Consistent carbohydrate, Cardiac 2g Na,low cholest Follow Up/Referral: Please follow up discharge clinic in 1 week Please follow up with the primary care physician in 1-2 weeks Medications: Ibuprofen 600 mg q.6h PRN for 7 days Pantoprazole 40 mg p.o. daily Please resume other current home medications you are including Evonne Scheduled Aspirin (Aspirin Low Dose), 81 MG PO DAILY Atorvastatin Calcium (Atorvastatin Calcium), 1 TAB PO DAILY, (Reported) Clopidogrel Bisulfate (Clopidogrel), 75 MG PO DAILY Escitalopram Oxalate (Escitalopram Oxalate), 1 TAB PO DAILY, (Reported) Furosemide (Furosemide), 1 TAB PO DAILY, (Reported) Lamotrigine (Lamotrigine), 2 PO BID, (Reported) Nitrofurantoin Monohydrate Mac (Macrobid), 100 MG PO BID Pantoprazole Sodium Sesquihydr (Pantoprazole Sodium), 40 MG PO DAILY Risperidone (Risperidone), 1 TAB PO BID, (Reported) Topiramate (Topiramate), 1 TAB PO BID, (Reported) Scheduled PRN Ibuprofen Micronized (Ibuprofen), 600 MG PO Q6HPRN PRN Miscellaneous Medications Albuterol Sulfate (Ventolin Hfa), (Reported) [Depakote], (Reported) [Zoloft], (Reported) Discharge Statement: "Patient was advised to return to the ER or call 911 if any headaches, dizziness, shortness of breath, chest pain, abdominal pain, bleeding, fevers, or worsening of medical condition. Patient was counseled about treatment plan, medications, possible side effects, patientverbalized understanding. All questions were answered to the best of my ability. This discharge took greater then 30 minutes in planning, reviewing documentation, counseling the patient, and discussing with other team members." ASSESSMENT ASSESSMENT Assessment Date of Service: Apr 21, 2025 Billing Provider: LEENA SANDOVAL MD Common Visit Codes: 38295-RTX/OBS DISCH DAY >30min NICKO CASTRO Apr 21, 2025 14:47 LEENA SANDOVAL MD Apr 21, 2025 17:46
[2025-04-21] MEDS ORDERED: IBUP1TAB5 PO (14:49)
[2025-04-21] MEDS ORDERED: PANT40T PO (14:54)
--- NOTE | 2025-04-28 08:22 | ECG ---
[facility] Test Date: 2025-04-20 Test Time: 12:33:14 Pat Name: BRANDON STERLING Department: [facility] ED Patient ID: [facility]-[id number] Room: 0216T A Gender: F Mba Internship: gp : 1980 Requested By: NENA CAMARGO Order Number: [id number] MD: Osvaldo Clark Measurements Intervals [place] Rate: 68 P: 38 [place]: 169 QRS: 130 QRSD: 95 T: 79 QT: 399 QTc: 425 Interpretive Statements Sinus rhythm Right axis deviation Low voltage, precordial leads Borderline T abnormalities, anterior leads Electronically Signed On 04-28-2025 9:03:44 PDT by Osvaldo Clark Please click the below link to view image of tracing.
== END 2025-04-21 17:05 | disposition home or self-care (01) | DRG 133 ==
LOC: ER 12:30 → EDBD 12:30 → OVERFLOW 18:16 → TELE-CENTR 21:18
PROVIDERS: ADMIT Student in an Organized Health Care Education/Training Program; ATTEND Student in an Organized Health Care Education/Training Program
PROC: 5A09357 Assistance with Respiratory Ventilation, Less than 24 Consecutive Hours, Continuous Positive Airway Pressure (ICD-10-PCS; principal; 2025-04-20)
DX: J96.01 Acute respiratory failure with hypoxia (principal); I11.0 Hypertensive heart disease with heart failure; I50.9 Heart failure, unspecified; I20.0 Unstable angina; M94.0 Chondrocostal junction syndrome [Tietze]; G40.909 Epilepsy, unspecified, not intractable, without status epilepticus; E78.5 Hyperlipidemia, unspecified; E11.9 Type 2 diabetes mellitus without complications; F20.9 Schizophrenia, unspecified; F31.9 Bipolar disorder, unspecified; J44.9 Chronic obstructive pulmonary disease, unspecified; Z86.73 Personal history of transient ischemic attack (TIA), and cerebral infarction without residual deficits; Z99.81 Dependence on supplemental oxygen; Z79.899 Other long term (current) drug therapy; Z90.710 Acquired absence of both cervix and uterus; Z79.02 Long term (current) use of antithrombotics/antiplatelets; Z87.891 Personal history of nicotine dependence; Z87.442 Personal history of urinary calculi
CPT/HCPCS: 36415; 71045; 73030; 80048; 80053; 80201; 80307; 81003; 82542; 83735; 83880; 84443; 84484; 85025; 85379; 93005; 93970; 94660; 99291; G0378; J1885

== ENCOUNTER 2025-04-25 17:44 | Emergency (ER) | payer MEDICAID ==
[~2025-04-25] VITALS: Ht 165.1 cm; Wt 130.0 kg
[~2025-04-25 17:44] MED LIST changes: +IBUP1TAB5 PO; +PANT40T PO
[2025-04-25 19:27] LABS: Hematocrit 39.9 % (36.0-46.0); Hemoglobin 13.5 g/dL (12.2-16.2); Mean Corpuscular Hemoglobin 30.5 pg (28.0-32.0); Mean Corpuscular Volume 90.0 fL (80.0-100.0); Nucleated Red Blood Cells % 0.1 %
[2025-04-25 19:44] LABS: Albumin 4.2 g/dL (3.2-4.8); Alkaline Phosphatase 79 U/L (46-116); Anion Gap 9 (5-15); BUN/Creatinine Ratio 23.0 (10.0-20.0); Blood Urea Nitrogen 17 mg/dL (9-23); Calcium 9.2 mg/dL (8.7-10.4); Carbon Dioxide 26 mmol/L (20-31); Glucose 96 mg/dL (74-106); Magnesium 1.9 mg/dL (1.6-2.6); Potassium 3.7 mmol/L (3.5-5.1); Sodium 144 mmol/L (136-145); Total Protein 6.4 g/dL (5.7-8.2)
--- NOTE | 2025-04-25 19:49 | ED.PDOC ---
HPI (NEURO) HPI Comments 44 y/o morbidly obese F, with a Hx of seizures, presents with c/c of multiple seizure episodes. Patient reports on being brought in by her aunt after being witnessed on having a sudden and unprovoked seizure episode at home. Associated lower lip bite wound she sustained during her seizure episodes. Denial of any incontinence or further injuries. She reports compliancy with her seizure medications, with no notable recent changes. Chief Complaint: Seizure Time Seen by MD: 16:45 Primary Care Provider: JACE Jarvis Notes: Nurses Notes, Medications, Allergies Information Source: Patient Mode of Arrival: Ambulatory Severity: Moderate Timing: Hours Duration: Minutes Past Medical History PAST MEDICAL HISTORY: CHF, COPD, Depression, DM, High Lipids, HTN, Kidney Stones, Schizophrenia, Seizures, TIA, UTI'S Surgical History: Hysterectomy Family History Family History: No family hx of HTN Social History Smoker: Non-Smoker Alcohol: Denies ETOH Use Drugs: Denies Drug Use Lives In: Home All Other Systems: Reviewed and Negative (Comprehensive review of systems are negative unless stated in HPI) Physical Exam General Appearance: No Apparent Distress, Obese HEENT: Normal ENT Inspection, Pharynx Normal, TMs Normal, Other (superficial abrasion to lower lips ) Neck: Full Range of Motion, Non-Tender, Normal, Normal Inspection Respiratory: Chest Non-Tender, Lungs Clear, No Accessory Muscle Use, No Respiratory Distress, Normal Breath Sounds Cardiovascular: No Edema, No JVD, No Murmur, No Gallop, Normal Peripheral Pulses, Regular Rate/Rhythm Breast Exam: Deferred Gastrointestinal: No Organomegaly, Non Tender, No Pulsatile Mass, Normal Bowel Sounds, Soft Genitalia: Deferred Pelvic: Deferred Rectal: Deferred Extremities: No calf tenderness, Normal capillary refill, Normal inspection, Normal range of motion, Non-tender, No pedal edema Musculoskeletal : Apperance: Normal 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 Was a procedure done?: No Differential Diagnosis (SZ) Seizure: Hyperventilation, Psychogenic Seizure, Anticonvulsant Withdrawl, CVA/TIA, Drug Ingestion, Hypocalcemia, Hypoglycemia, Hyponatremia, Hypoxemia, Idiopathic, Syncope, Epilepsy-Break Through, Epilepsy-Status X-Ray, Labs, Meds, VS Vital Signs Date Time Temp Pulse Resp B/P (MAP) Pulse Ox O2 Delivery O2 Flow Rate FiO2 04/25/25 23:00 97.8 87 16 120/76 (91) 97 97.8 04/25/25 19:07 92 16 120/72 (88) 96 04/25/25 17:51 97.1 96 15 115/73 90 97.1 Lab Test 04/25/25 19:19 04/25/25 18:57 Range/Units White Blood Count 7.4 4.4-10.8 10^3/uL Red Blood Count 4.43 4.0-5.20 10^6/uL Hemoglobin 13.5 12.2-16.2 g/dL Hematocrit 39.9 36.0-46.0 % Mean Corpuscular Volume 90.0 80.0-100.0 fL Mean Corpuscular Hemoglobin 30.5 28.0-32.0 pg Mean Corpuscular Hemoglobin Concent 33.8 32.0-36.0 g/dL Red Cell Distribution Width 14.3 11.8-14.3 % Platelet Count 271 140-450 10^3/uL Mean Platelet Volume 7.7 6.9-10.8 fL Neutrophils (%) (Auto) 54.3 37.0-80.0 % Lymphocytes (%) (Auto) 26.7 10.0-50.0 % Monocytes (%) (Auto) 15.1 H 0.0-12.0 % Eosinophils (%) (Auto) 3.1 0.0-7.0 % Basophils (%) (Auto) 0.8 0.0-2.0 % Neutrophils # (Auto) 4.0 1.6-8.6 10 ^3/uL Lymphocytes # (Auto) 2.0 0.4-5.4 10 ^3/uL Monocytes # (Auto) 1.1 0-1.3 10 ^3/uL Eosinophils # (Auto) 0.2 0-0.8 10 ^3/uL Basophils # (Auto) 0.1 0-0.2 10 ^3/uL Nucleated Red Blood Cells 0.1 % Sodium Level 144 136-145 mmol/L Potassium Level 3.7 3.5-5.1 mmol/L Chloride Level 109 H 98-107 mmol/L Carbon Dioxide Level 26 20-31 mmol/L Anion Gap 9 5-15 Blood Urea Nitrogen 17 9-23 mg/dL Creatinine 0.74 0.550-1.02 mg/dL Glomerular Filtration Rate Calc 102 >90 mL/min BUN/Creatinine Ratio 23.0 H 10.0-20.0 Serum Glucose 96 74-106 mg/dL Calcium Level 9.2 8.7-10.4 mg/dL Magnesium Level 1.9 1.6-2.6 mg/dL Total Bilirubin 0.2 0.2-1.0 mg/dL Aspartate Amino Transferase (AST) 32 13-40 U/L Alanine Aminotransferase (ALT) 62 H 7-40 U/L Alkaline Phosphatase 79 46-116 U/L Total Protein 6.4 5.7-8.2 g/dL Albumin 4.2 3.2-4.8 g/dL POC Glucose 103 70-106 mg/dl Current Medications Medications (Trade) Dose Ordered Sig/Ponce Route Start Time Stop Time Status Last Admin Lorazepam (Ativan Inj) 1 mg ONCE ONCE IV 04/25/25 19:15 04/25/25 19:16 DC 04/25/25 21:45 Sodium Chloride 1,000 ml @ 500 mls/hr Q2H ONCE IVB 04/25/25 19:15 04/25/25 21:14 DC 04/25/25 21:35 Levetiracetam 100 ml @ 400 mls/hr ONCE ONCE IV 04/25/25 19:15 04/25/25 19:30 DC 04/25/25 21:45 Time of 1ST Reevaluation: 17:15 Reevaluation 1ST: Unchanged Patient Education/Counseling: Diagnosis, Treatment Family Education/Counseling: No Family Present Departure 1 Departure Time of Disposition: 19:15 Impression: Primary Impression: Seizure disorder Additional Impression: Breakthrough seizure Disposition: 01 HOME / SELF CARE / HOMELESS Condition: Stable Discharged With: Self Critical Care Note Critical Care Time?: No Stability Stability form required: No Heart Score Heart Score: Heart Score Response (Comments) Value History N/A 0 EKG N/A 0 Age N/A 0 Risk Factors N/A 0 Troponin N/A 0 Total 0 I personally scribed for SAVANNAH MEHTA MD ([email or web address]) on 04/25/25 at 19:48. Electronically submitted by Brte Leary [email or web address]). SAVANNAH MEHTA MD Apr 25, 2025 19:48
[2025-04-25 20:20] LABS: Alanine Aminotransferase 62 U/L (7-40); Bilirubin, Total 0.2 mg/dL (0.2-1.0); Chloride 109 mmol/L (98-107)
[2025-04-25] MEDS: SODIUM CHLORIDE 0.9% 1,000 ML IVB ONE (21:35)
[2025-04-25] MEDS: levETIRAcetam 500 mg/100ml 100 ML IV ONE (21:45)
[2025-04-25] MEDS: LORazepam 2MG/ML-1ML VIAL IV ONE (21:45)
[2025-04-25 23:00] VITALS: BP 120/76; PULSE 87; RESP 16; TEMP 97.8; O2SAT 97
== END 2025-04-25 23:19 | disposition home or self-care (01) ==
LOC: ER 17:44
DX: G40.909 Epilepsy, unspecified, not intractable, without status epilepticus (principal); I11.0 Hypertensive heart disease with heart failure; I50.9 Heart failure, unspecified; J44.9 Chronic obstructive pulmonary disease, unspecified; E11.9 Type 2 diabetes mellitus without complications; E78.5 Hyperlipidemia, unspecified; F32.A Depression, unspecified; Z86.73 Personal history of transient ischemic attack (TIA), and cerebral infarction without residual deficits; Z87.440 Personal history of urinary (tract) infections; Z87.442 Personal history of urinary calculi; Z90.710 Acquired absence of both cervix and uterus
CPT/HCPCS: 36415; 80053; 82947; 83735; 85025; 96361; 96374; 96375; 99284; J1953; J2060; J7030; 82962